=== PATIENT | male | born 1965 | race African-American/Black ===

== ENCOUNTER 2016-12-25 14:18 | Emergency (ER) | payer BC ==
[~2016-12-25] VITALS: Ht 172.7 cm; Wt 77.3 kg
[~2016-12-25 14:18] MED LIST: ASPI-664 PO; BENA10TA48 PO; LEVE-5 PO; METO25TA7 PO
[2016-12-25] MEDS ORDERED: HALOPERIDOL 5 MG INJ ONE (14:21)
[2016-12-25] MEDS ORDERED: DIPHENHYDRAMINE 50 MG INJ ONE (14:21)
[2016-12-25] MEDS ORDERED: LORAZEPAM 2 MG INJ ONE (14:22)
[2016-12-25] MEDS ORDERED: LEVETIRACETAM 500 MG (PMX) 100 ML IVPB ONE (14:30)
[2016-12-25] MEDS ORDERED: HALOPERIDOL 5 MG INJ IM ONE (14:30)
[2016-12-25] MEDS ORDERED: DIPHENHYDRAMINE 50 MG INJ IM ONE (14:30)
[2016-12-25] MEDS ORDERED: LORAZEPAM 2 MG INJ IM ONE (14:30)
[2016-12-25 14:57] VITALS: Ht 172.7 cm; Wt 77.3 kg
[2016-12-25 15:11] LABS: ADD SCAN DIFF NO
[2016-12-25 15:16] LABS: BASOPHIL # 0.1 10^3/ul (0.0-0.1); BASOPHILS % 0.7 % (0.0-2.0); EOSINOPHILS # 0.3 10^3/ul (0.0-0.5); EOSINOPHILS % 4.6 % (0.0-7.0); HEMATOCRIT 42.6 % (42.0-52.0); HEMOGLOBIN 13.5 g/dl (14.0-18.0); LYMPHOCYTES # 3.1 10^3/ul (0.8-2.9); LYMPHOCYTES % 42.8 % (15.0-51.0); MEAN CORPUSCULAR HEMOGLOBIN 25.4 pg (29.0-33.0); MEAN CORPUSCULAR HGB CONC 31.7 g/dl (32.0-37.0); MEAN CORPUSCULAR VOLUME 80.2 fl (82.0-101.0); MEAN PLATELET VOLUME 11.3 fl (7.4-10.4); MONOCYTE # 0.7 10^3/ul (0.3-0.9); MONOCYTES % 9.2 % (0.0-11.0); NEUTROPHIL # 3.1 10^3/ul (1.6-7.5); NEUTROPHILS % 42.4 % (39.0-77.0); PLATELET COUNT 279 10^3/UL (140-415); RED BLOOD COUNT 5.31 10^6/ul (4.70-6.10); WHITE BLOOD COUNT 7.2 10^3/ul (4.8-10.8)
[2016-12-25 15:29] LABS: INR 0.95; PROTIME 12.7 Sec (12.2-14.2)
[2016-12-25 15:30] LABS: PARTIAL THROMBOPLASTIN TIME 23.8 Sec (25.0-35.0)
--- NOTE | 2016-12-25 15:31 | RADRPT ---
PROCEDURE: CT Brain without contrast. CLINICAL INDICATION: Seizures TECHNIQUE: CT scan of the brain was performed on a multidetector high-resolution CT scan. Axial im aging was obtained of the brain without contrast administration. Coronal and sagittal reformatted i mages were obtained from the axial source images. Standard CT scan of the head without contrast prot ocols were performed. The total exam CTDI equals 43.05 mGy and the total exam DLP equals 720.23 mGy-cm. One or more of the following dose reduction techniques were used: - Automated exposure control. - Adjustment of the mA and/or kV according to patient size. Use of iterative reconstruction technique. COMPARISON: CT head without contrast 11/28/2014 FINDINGS: There is no significant change seen. Again noted is encephalomalacia involving the posterior pariet al lobes consistent with old infarcts. Again noted is encephalomalacia involving the posterior righ t cerebellum consistent with an old infarct. No evidence of intracranial masses hemorrhages or midl ine shift. The vazquez-white matter junction is otherwise unremarkable. The bones and calvarium are i ntact. The paranasal sinuses and mastoids are unremarkable. IMPRESSION: 1. No significant interval change. 2. No evidence of intracranial masses hemorrhages or midline shift. 3. 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 RPTAT:AAJJ Physician Sanam Date Time Electronically viewed and signed by Physician Sanam on 12/25/2016 15:31 BM/
[2016-12-25 15:34] LABS: ALBUMIN 4.1 g/dl (3.3-4.9); ALBUMIN/GLOBULIN RATIO 1.17; BILIRUBIN,INDIRECT 0.2 mg/dl (0-1.1); BILIRUBIN,TOTAL 0.2 mg/dl (0.2-1.3); CALCIUM 9.1 mg/dl (8.4-10.2); CREATININE 0.87 mg/dl (0.61-1.24); TOTAL PROTEIN 7.6 g/dl (6.1-8.1)
[2016-12-25] MEDS ORDERED: POTASSIUM CHLORIDE (SR) 20 MEQ TAB PO STA (15:57)
--- NOTE | 2016-12-25 17:12 | ERA ---
ER Documentation Chief Complaint Date/Time DATE: 12/25/16 TIME: 17:08 Chief Complaint seizure HPI The patient is a 51-year-old male, presenting to the ER because he had a seizure about a minute, happened about 30 minutes prior to arrival. He was postictal when EMS arrived, he became very combative in route to the ER. We will unable to field counsel him, he was therefore required sedation with medication. 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 Medications Home Meds Reported Medications Aspirin* (Aspirin* EC) 81 Mg Tablet.dr, 81 MG PO DAILY, TAB 11/17/14 Benazepril Hcl* (Benazepril Hcl*) 10 Mg Tablet, 10 MG PO DAILY 10/27/12 Metoprolol Succinate* (Toprol XL*) 25 Mg Tab.sr.24h, 25 MG PO DAILY 10/27/12 Levetiracetam* (Keppra*) 500 Mg Tablet, 500 MG PO TID 10/27/12 Allergies Allergies: Coded Allergies: simvastatin (Verified Allergy, Unknown, 11/17/14) PMhx/Soc History of Surgery: Yes (stent placement) Anesthesia Reaction: No Hx Neurological Disorder: Yes (seizure disorder) Hx Respiratory Disorders: No Hx Cardiac Disorders: Yes (stroke, [place]) Hx Psychiatric Problems: No Hx Miscellaneous Medical Probl: No Hx Alcohol Use: Yes (beer daily) Hx Substance Use: No Hx Tobacco Use: Yes Smoking Status: Heavy tobacco smoker Physical Exam Vitals Vital Signs Date Time Temp Pulse Resp B/P Pulse Ox O2 Delivery O2 Flow Rate FiO2 12/25/16 16:44 89 17 145/83 96 Room Air 12/25/16 14:57 98.6 99 18 148/99 96 12/25/16 14:45 98.6 100 17 128/83 96 12/25/16 14:30 98.6 100 17 135/78 96 Physical Exam Const: No acute distress.Combative Head: Atraumatic. Eyes: Normal Conjunctiva. ENT: Normal External Ears, Nose and Mouth. Neck: Full range of motion. No meningismus. Resp: Clear to auscultation bilaterally. Cardio: Regular rate and rhythm, no murmurs. Abd: Soft, non distended, normal bowel sounds, non tender. Skin: No petechiae or rashes. Back: No midline or flank tenderness. Ext: No cyanosis, or edema. Neur: Awake and alert. No focal deficit Psych: Limited,postictal, combative, moves all extremities Result Diagram: 12/25/16 1455 12/25/16 1455 Results 24 hrs Laboratory Tests Test 12/25/16 14:55 White Blood Count 7.210^3/ul Red Blood Count 5.3110^6/ul Hemoglobin 13.5g/dl Hematocrit 42.6% Mean Corpuscular Volume 80.2fl Mean Corpuscular Hemoglobin 25.4pg Mean Corpuscular Hemoglobin Concent 31.7g/dl Red Cell Distribution Width 16.0% Platelet Count 83041^3/UL Mean Platelet Volume 11.3fl Neutrophils % 42.4% Lymphocytes % 42.8% Monocytes % 9.2% Eosinophils % 4.6% Basophils % 0.7% Nucleated Red Blood Cells % 0.0/100WBC Neutrophils # 3.110^3/ul Lymphocytes # 3.110^3/ul Monocytes # 0.710^3/ul Eosinophils # 0.310^3/ul Basophils # 0.110^3/ul Nucleated Red Blood Cells # 0.010^3/ul Prothrombin Time 12.7Sec Prothrombin Time Ratio 1.0 INR International Normalized Ratio 0.95 Activated Partial Thromboplast Time 23.8Sec Sodium Level 141mmol/L Potassium Level 3.0mmol/L Chloride Level 106mmol/L Carbon Dioxide Level 26mmol/L Anion Gap 12 Blood Urea Nitrogen 7mg/dl Creatinine 0.87mg/dl Glucose Level 101mg/dl Calcium Level 9.1mg/dl Total Bilirubin 0.2mg/dl Direct Bilirubin 0.00mg/dl Indirect Bilirubin 0.2mg/dl Aspartate Amino Transf (AST/SGOT) 34IU/L Alanine Aminotransferase (ALT/SGPT) 26IU/L Alkaline Phosphatase 97IU/L Total Protein 7.6g/dl Albumin 4.1g/dl Globulin 3.50g/dl Albumin/Globulin Ratio 1.17 Current Medications Medications (Trade) Dose Ordered Sig/Aravind Route PRN Reason Start Time Stop Time Status Last Admin Dose Admin Lorazepam (Ativan) 2 mg ONCE ONCE IM 12/25/16 14:30 12/25/16 14:31 DC 12/25/16 14:28 Haloperidol (Haldol) 5 mg ONCE ONCE IM 12/25/16 14:30 12/25/16 14:31 DC 12/25/16 14:28 Diphenhydramine HCl 50 mg 50 mg ONCE ONCE IM 12/25/16 14:30 12/25/16 14:31 DC 12/25/16 14:28 Levetiracetam (Keppra 500 Mg/ 100ml (Pmx)) 100 ml @ 400 mls/hr ONCE ONCE IVPB 12/25/16 14:30 12/25/16 14:44 DC 12/25/16 14:56 Potassium Chloride (Klor-Con 20) 40 meq ONCE STAT PO 12/25/16 15:57 12/25/16 16:02 DC Diphenhydramine HCl (Benadryl) 50 mg STK-MED ONCE .ROUTE 12/25/16 14:21 12/25/16 16:15 DC Haloperidol (Haldol) 5 mg STK-MED ONCE .ROUTE 12/25/16 14:21 12/25/16 16:15 DC Lorazepam (Ativan) 2 mg STK-MED ONCE .ROUTE 12/25/16 14:22 12/25/16 16:15 DC Procedures/[place] [id number] Radiology Main Line: [phone] DIAGNOSTIC IMAGING REPORT Patient: PERI STONE : 1965 Age: 51 Sex: M MR #: [id number] DOS: 12/25/16 Formerly [facility] Ordering MD: GRICEL WALLIS MD Location: E/R Room/Bed: PROCEDURE: CT Brain without contrast. CLINICAL INDICATION: Seizures TECHNIQUE: CT scan of the brain was performed on a multidetector high- resolution CT scan. Axial imaging was obtained of the brain without contrast administration. Coronal and sagittal reformatted images were obtained from the axial source images. Standard CT scan of the head without contrast protocols were performed. The total exam CTDI equals 43.05 mGy and the total exam DLP equals 720.23 mGy- cm. One or more of the following dose reduction techniques were used: - Automated exposure control. - Adjustment of the mA and/or kV according to patient size. Use of iterative reconstruction technique. COMPARISON: CT head without contrast 11/28/2014 FINDINGS: There is no significant change seen. Again noted is encephalomalacia involving the posterior parietal lobes consistent with old infarcts. Again noted is encephalomalacia involving the posterior right cerebellum consistent with an old infarct. No evidence of intracranial masses hemorrhages or midline shift. The vazquez-white matter junction is otherwise unremarkable. The bones and calvarium are intact. The paranasal sinuses and mastoids are unremarkable. IMPRESSION: 1. No significant interval change. 2. No evidence of intracranial masses hemorrhages or midline shift. 3. 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 RPTAT:AAJJ Physician Sanam Date Time Electronically viewed and signed by Landon Dowd Physician on 12/25/2016 15:31 BM/ CC: GRICEL WALLIS MD MEDICAL MAKING DECISION: The patient is a 51-year-old male, presenting with acute recurrent seizure, acute hypokalemia. He was treated with Benadryl 50 mg IM, haloperidol 5 mg IM, Ativan 2 mg IM for acute agitation and potassium chloride 40 mEq p.o. for low potassium with good response The differential diagnoses considered include but are not limited to medication non-compliance, alcohol intoxication or withdrawal, drug intoxication or withdrawal, endocrine disorder, trauma, CVA, tumor, metabolic encephalopathy, septic encephalopathy. Departure Diagnosis: Primary Impression: Recurrent seizures Additional Impression: Hypokalemia Condition: Good Patient Instructions: Seizure, Recurrent [Adult] Additional Instructions: Call your primary care doctor TOMORROW for an appointment during the next 1-2 days.See the doctor sooner or return here if your condition worsens before your appointment time. GRICEL WALLIS MD Dec 25, 2016 17:12
[2016-12-25 20:13] VITALS: BP 185/77; PULSE 67; RESP 22
== END 2016-12-25 22:30 | disposition home or self-care (01) ==
LOC: E/R 14:18
DX: G40.909 Epilepsy, unspecified, not intractable, without status epilepticus (principal); E87.6 Hypokalemia; F17.210 Nicotine dependence, cigarettes, uncomplicated; R40.2142 Coma scale, eyes open, spontaneous, at arrival to emergency department; R40.2242 Coma scale, best verbal response, confused conversation, at arrival to emergency department; Z79.82 Long term (current) use of aspirin
CPT/HCPCS: 36415; 70450; 80053; 85025; 85610; 85730; 96372; 96374; 99285; J1200; J1630; J1953; J2060

== ENCOUNTER 2017-01-22 08:38 | Emergency (ER) | payer BC ==
[~2017-01-22] VITALS: Ht 160 cm; Wt 64.5 kg
[2017-01-22 08:39] VITALS: Ht 160 cm; Wt 64.5 kg
[2017-01-22] MEDS ORDERED: LEVETIRACETAM 1000 MG (PMX) 100 ML IVPB STA (08:48)
[2017-01-22] MEDS ORDERED: LEVE-5 PO (09:04)
[2017-01-22] MEDS ORDERED: BENA10TA48 PO (09:04)
[2017-01-22] MEDS ORDERED: METO25TA7 PO (09:04)
--- NOTE | 2017-01-22 09:16 | ERD ---
ER Documentation Chief Complaint Date/Time DATE: 01/22/17 TIME: 09:14 Chief Complaint rigo has been off seizure meds HPI 51-year-old male who presents for medication refill. He states that he has a seizure disorder and has been out of his Keppra for greater than 1 month. His last seizure was 2 weeks ago. He states that today he is seeing some flashing lights that sometimes precedes his seizures. He also notes that he has been out of his blood pressure medications and his blood pressure is elevated. He denies any headache chest pain or shortness of breath. The patient does not recall the name of the medications. He otherwise has no complaints today. ROS All systems reviewed and are negative except as per history of present illness. Medications Home Meds Active Scripts Benazepril Hcl* (Benazepril Hcl*) 10 Mg Tablet, 10 MG PO DAILY, #30 TAB Prov:DONNA GREENE MD 01/22/17 Metoprolol Succinate* (Toprol XL*) 25 Mg Tab.sr.24h, 25 MG PO DAILY, #30 TAB Prov:DONNA GREENE MD 01/22/17 Levetiracetam* (Keppra*) 500 Mg Tablet, 500 MG PO TID for 30 Days, TAB Prov:DONNA GREENE MD 01/22/17 Reported Medications Aspirin* (Aspirin* EC) 81 Mg Tablet.dr, 81 MG PO DAILY, TAB 11/17/14 Benazepril Hcl* (Benazepril Hcl*) 10 Mg Tablet, 10 MG PO DAILY 10/27/12 Metoprolol Succinate* (Toprol XL*) 25 Mg Tab.sr.24h, 25 MG PO DAILY 10/27/12 Levetiracetam* (Keppra*) 500 Mg Tablet, 500 MG PO TID 10/27/12 Allergies Allergies: Coded Allergies: simvastatin (Verified Allergy, Unknown, 11/17/14) PMhx/Soc History of Surgery: Yes (stent placement) Anesthesia Reaction: No Hx Neurological Disorder: Yes (seizure disorder) Hx Respiratory Disorders: No Hx Cardiac Disorders: Yes (stroke, [place]) Hx Psychiatric Problems: No Hx Miscellaneous Medical Probl: No Hx Alcohol Use: Yes (beer daily) Hx Substance Use: No Hx Tobacco Use: Yes Smoking Status: Unknown if ever smoked FmHx Family History: No diabetes Physical Exam Vitals Vital Signs Date Time Temp Pulse Resp B/P Pulse Ox O2 Delivery O2 Flow Rate FiO2 01/22/17 09:01 93 18 170/113 99 Room Air 01/22/17 08:39 98.0 114 18 209/126 98 Physical Exam General: Well developed, well nourished, no acute distress Head: Normocephalic, atraumatic. Eyes: Pupils equally reactive, EOM intact ENT: Moist mucous membranes Neck: Supple, no lymphadenopathy Respiratory: Lungs clear bilaterally, no distress Cardiovascular: RRR, no murmurs, rubs, or gallops Abdominal: Soft, non-tender, non-distended, no peritoneal signs : Deferred MSK: No edema, no unilateral swelling, 5/5 strength Neurologic: Alert and oriented, moving all extremities, normal speech, no focal weakness, no cerebellar signs Skin: No rash Psych: Normal mood Results 24 hrs Laboratory Tests Test 01/22/17 08:59 Bedside Glucose 72mg/dL Current Medications Medications (Trade) Dose Ordered Sig/Aravind Route PRN Reason Start Time Stop Time Status Last Admin Dose Admin Levetiracetam (Keppra 1,000mg/ 100ml (Pmx)) 100 ml @ 400 mls/hr ONCE STAT IVPB 01/22/17 08:48 01/22/17 09:02 DC 01/22/17 09:09 Procedures/MDM LAB INTERPRETATION: Accu-Chek normal MEDICAL DECISION MAKING: Patient's blood pressure was elevated (>120/80) but appears stable without evidence of hypertensive emergency or urgency. The patient was counseled about the risks of hypertension and urged to pursue outpatient monitoring and therapy within a week with their primary care physician. Medication refill of metoprolol and benazepril The patient also has not been taking Keppra for greater than 1 month. Keppra load 1 g in the emergency room. A prescription for 500 3 times daily was provided based on prior prescriptions and electronic medical record. No indication for laboratory testing or diagnostic imaging at this point. Primary care follow-up recommended. We had a conversation about medication compliance. ER COURSE: Patient given Keppra continues to be well-appearing, Accu-Chek normal. Patient discharged. I kept the patient and/or family informed of laboratory and diagnostic imaging results throughout the emergency room course. DISPOSITION PLAN: We discussed follow up with the patient's primary care doctor within 24 to 48 hours as needed. We also discussed return to the emergency room for worsening symptoms or worsening condition. Outpatient referral: [None required] Discharge Medications: Keppra 500 3 times daily Benazepril 10 mg daily Metoprolol XL 25 mg daily Departure Diagnosis: Primary Impression: Seizure disorder Additional Impression: Essential hypertension Condition: Stable Patient Instructions: Hypertension, Established, Seizure, Recurrent [Adult] Additional Instructions: Call your primary care doctor TOMORROW for an appointment during the next 1 WEEK.Tell the school secretary that you were referred from this facility.See the doctor sooner or return here if your condition worsens before your appointment time. DONNA GREENE MD January 22, 2017 09:16
[2017-01-22 09:33] VITALS: BP 154/112; PULSE 90; RESP 18
== END 2017-01-22 09:38 | disposition home or self-care (01) ==
LOC: E/R 08:38
DX: G40.909 Epilepsy, unspecified, not intractable, without status epilepticus (principal); I10 Essential (primary) hypertension; Z79.82 Long term (current) use of aspirin; Z87.891 Personal history of nicotine dependence
CPT/HCPCS: 82962; 96374; 99284; J1953

== ENCOUNTER 2017-03-18 19:28 | Emergency (ER) | payer BC, MEDICARE ==
[~2017-03-18] VITALS: Ht 167.6 cm; Wt 62.5 kg
[2017-03-18 19:30] VITALS: Ht 167.6 cm; Wt 62.5 kg
[2017-03-18] MEDS ORDERED: LEVE-5 PO (20:01)
--- NOTE | 2017-03-18 20:04 | ERD ---
ER Documentation Chief Complaint Date/Time DATE: 03/18/17 TIME: 20:02 Chief Complaint med refill - seizure meds- keppra took dose 23 days ago HPI 51-year-old male presents here in emergency department for medication refill, patient ran out of his seizure medications, patient has an appointment on March 28, unable to wait for it anymore, patient had one seizure episodes for the last 20 days. Patient denies any headache or dizziness at this time. Patient denies any aura at this time. Patient denies any other symptoms. ROS All systems reviewed and are negative except as per history of present illness. Medications Home Meds Active Scripts Levetiracetam* (Keppra*) 500 Mg Tablet, 500 MG PO TID for 15 Days, TAB Prov:NYASIA STEIN NP 03/18/17 Benazepril Hcl* (Benazepril Hcl*) 10 Mg Tablet, 10 MG PO DAILY, #30 TAB Prov:DONNA GREENE MD 01/22/17 Metoprolol Succinate* (Toprol XL*) 25 Mg Tab.sr.24h, 25 MG PO DAILY, #30 TAB Prov:DONNA GREENE MD 01/22/17 Reported Medications Aspirin* (Aspirin* EC) 81 Mg Tablet.dr, 81 MG PO DAILY, TAB 11/17/14 Benazepril Hcl* (Benazepril Hcl*) 10 Mg Tablet, 10 MG PO DAILY 10/27/12 Metoprolol Succinate* (Toprol XL*) 25 Mg Tab.sr.24h, 25 MG PO DAILY 10/27/12 Levetiracetam* (Keppra*) 500 Mg Tablet, 500 MG PO TID 10/27/12 Allergies Allergies: Coded Allergies: simvastatin (Verified Allergy, Unknown, 11/17/14) PMhx/Soc History of Surgery: Yes (stent placement) Anesthesia Reaction: No Hx Neurological Disorder: Yes (seizure disorder) Hx Respiratory Disorders: No Hx Cardiac Disorders: Yes (stroke, [place]) Hx Psychiatric Problems: No Hx Miscellaneous Medical Probl: No Hx Alcohol Use: Yes (beer daily) Hx Substance Use: No Hx Tobacco Use: Yes FmHx Family History: No coronary disease, No diabetes, No other Physical Exam Vitals Vital Signs Date Time Temp Pulse Resp B/P Pulse Ox O2 Delivery O2 Flow Rate FiO2 03/18/17 19:30 97.1 88 20 173/80 100 Physical Exam GENERAL: The patient is well developed and appropriate for usual state of health, in no apparent distress. CHEST: Clear to auscultation bilaterally. There are no rales, wheezes or rhonchi. HEART: Regular rate and rhythm. No murmurs, clicks, rubs or gallops. No S3 or S4. ABDOMEN: Soft, nontender and nondistended. Good bowel sounds. No rebound or guarding. No gross peritonitis. No gross organomegaly or masses. No Pollard sign or McBurney point tenderness. BACK: No midline or flank tenderness. EXTREMITIES: Equal pulses bilaterally. There is no peripheral clubbing, cyanosis or edema. No focal swelling or erythema. Full range of motion. Grossly neurovascularly intact. NEURO: Alert and oriented. Cranial nerves 2-12 intact. Motor strength in all 4 extremities with 5/5 strength. Sensation grossly intact. Normal speech and gait. SKIN: There is no apparent rash or petechia. The skin is warm and dry. HEMATOLOGIC AND LYMPHATIC: There is no evidence of excessive bruising or lymphedema. No gross cervical, axillary, or inguinal lymphadenopathy. Procedures/MDM Medical decision making: Patient is here for medication refill on his Keppra, patient has an appointment on March 28, was given 15 day supply, was advised to follow-up with his doctor for management of his seizures. Patient was advised to return to emergency department for new worsening symptoms. Follow-up with primary care doctor as per appointment request for earlier appointment. Departure Diagnosis: Primary Impression: Encounter for medication refill Condition: Stable Patient Instructions: Taking Medicine Safely Referrals: ROSENDA DE LUNA MD (PCP) NYASIA STEIN NP Mar 18, 2017 20:04
== END 2017-03-19 05:00 | disposition home or self-care (01) ==
LOC: FTE 19:28
DX: Z76.0 Encounter for issue of repeat prescription (principal); Z79.82 Long term (current) use of aspirin; Z87.891 Personal history of nicotine dependence
CPT/HCPCS: 99281

== ENCOUNTER 2017-11-11 22:55 | Inpatient (IN) | END 2017-11-13 12:35 | disposition left against medical advice (07) | DRG 65 ==

== ENCOUNTER 2018-11-21 02:25 | Inpatient (IN) | payer MEDICAID, MEDICARE, OTHER ==
[2018-11-21] VITALS (66 sets, daily range): BP systolic 62–131; BP diastolic 11–103; PULSE 59–136; RESP 10–36; Ht 160 cm; Wt 69.9 kg
[~2018-11-21] VITALS: Ht 160 cm; Wt 69.9 kg
[~2018-11-21 02:25] MED LIST changes: -ASPI-664 PO; +ASPI-817 PO; +BENA10TA4 PO; -BENA10TA48 PO; -LEVE-5 PO; +LEVE500T8 PO; -METO25TA7 PO
[2018-11-21] MEDS ORDERED: SOD CHLORIDE 0.9% 1,000 ML IV STA ×3 (02:33→03:13)
[2018-11-21] MEDS ORDERED: ONDANSETRON 4 MG INJ IV STA (02:33)
[2018-11-21] MEDS ORDERED: FENTAnyl 50 MCG/ML VIAL IV ONE ×3 (03:00→05:00)
[2018-11-21] MEDS ORDERED: HEPARIN 1000 UNITS/ML 10 ML INJ IV STA ×2 (03:30→03:46)
[2018-11-21] MEDS ORDERED: MIDAZOLAM 1 MG/ML 2 ML INJ ONE (03:51)
[2018-11-21] MEDS ORDERED: LIDOCAINE 1% (MDV) 20 ML INJ ONE (03:51)
[2018-11-21] MEDS ORDERED: HEPARIN 1000 UNITS/ML 10 ML INJ ONE ×2 (03:51→07:34)
[2018-11-21] MEDS ORDERED: IOHEXOL 350MG/ML 50 ML BTL ONE (03:51)
[2018-11-21] MEDS ORDERED: IODIXANOL LOCM 100 ML BTL ONE ×4 (03:51→07:34)
[2018-11-21] MEDS ORDERED: FENTAnyl 50 MCG/ML VIAL ONE (03:52)
[2018-11-21] MEDS ORDERED: NITROGLYCERIN (IC) 100 MCG/ML INJ ONE (03:52)
[2018-11-21] MEDS ORDERED: VERAPAMIL 5 MG INJ ONE ×2 (03:52→07:33)
[2018-11-21] MEDS ORDERED: CLOPIDOGREL 75 MG TAB PO ONE (04:00)
--- NOTE | 2018-11-21 04:07 | ERD ---
ER Documentation Chief Complaint Chief Complaint BIB RA39 for CP/AP w/ SOB HPI 53-year-old gentleman who presents to the emergency room with epigastric abdominal pain. The patient arrives via EMS. Initial call from the field was possible ST elevation myocardial infarction. Upon arrival the patient describes epigastric abdominal pain that started earlier in the afternoon. He is a very limited and difficult historian. He describes mild nausea. He denies any chest pain or pressure but does describe a history of coronary disease and stents. He cannot articulate if this is similar to anginal equivalent. He denies any migra tory pain, fevers or chills, cough, pleuritic pain. He denies any mid back pain. Patient's blood pressure in the field was low but upon arrival is in the 100s. ROS All systems reviewed and are negative except as per history of present illness. Medications Home Meds Reported Medications Levetiracetam* (Levetiracetam*) 500 Mg Tablet, 500 MG PO TID, TAB 11/11/17 Benazepril Hcl* (Benazepril Hcl*) 10 Mg Tablet, 10 MG PO DAILY, #30 TAB 11/11/17 Aspirin* (Aspirin* EC) 81 Mg Tablet.dr, 81 MG PO DAILY, TAB 11/11/17 Allergies Allergies: Coded Allergies: No Known Allergy (Unverified , 11/21/18) PMhx/Soc History of Surgery: Yes Anesthesia Reaction: No Hx Neurological Disorder: Yes (h/o CVA, seizures) Hx Respiratory Disorders: No Hx Cardiac Disorders: Yes ([place] x2, htn) Hx Psychiatric Problems: Yes (anxiety) Hx Miscellaneous Medical Probl: Yes (htn, h.of sizure s/p cva in 2008 ) Hx Alcohol Use: Yes Hx Substance Use: No Hx Tobacco Use: Yes (1-2 cigarettes a day) Smoking Status: Current every day smoker FmHx Family History: No diabetes Physical Exam Vitals Vital Signs Date Temp Pulse Resp B/P (MAP) Pulse Ox O2 O2 Flow FiO2 Time Delivery Rate 11/21/18 43 10 83/61 (68) 100 Nasal 3.0 03:13 Cannula 11/21/18 97.2 85 20 69/28 (42) 100 Room Air 03:00 11/21/18 97.2 119 20 70/47 (55) 100 Room Air 02:50 11/21/18 97.2 50 20 72/61 (65) 100 Room Air 02:40 11/21/18 97.2 48 20 67/56 (60) 100 Room Air 02:30 11/21/18 97.2 52 20 117/84 100 02:27 (95) Physical Exam General: Cool, diaphoretic, uncomfortable Head: Normocephalic, atraumatic. Eyes: Pupils equally reactive, EOM intact ENT: Moist mucous membranes Neck: Supple, no lymphadenopathy Respiratory: Lungs clear bilaterally, no distress Cardiovascular: Bradycardia, no murmurs rubs or gallops Abdominal: Soft, focal tenderness to the epigastrium without rebound or guarding, no tenderness to McBurney's point, negative Pollard sign, no pulsatile mass : Deferred MSK: No edema, no unilateral swelling, 5/5 strength Neurologic: Alert and oriented, moving all extremities, normal speech, no focal weakness, no cerebellar signs Skin: No rash Psych: Normal mood Result Diagram: 11/21/18 0238 11/21/18 0238 Results 24 hrs Laboratory Tests Test 11/21/18 02:38 11/21/18 03:07 White Blood Count 8.8 10^3/ul Red Blood Count 5.01 10^6/ul Hemoglobin 13.1 g/dl Hematocrit 41.4 % Mean Corpuscular Volume 82.6 fl Mean Corpuscular Hemoglobin 26.1 pg Mean Corpuscular Hemoglobin Concent 31.6 g/dl Red Cell Distribution Width 14.8 % Platelet Count 315 10^3/UL Mean Platelet Volume 10.8 fl Immature Granulocytes % 0.100 % Neutrophils % 24.8 % Lymphocytes % 64.3 % Monocytes % 7.9 % Eosinophils % 2.0 % Basophils % 0.9 % Nucleated Red Blood Cells % 0.0 /100WBC Immature Granulocytes # 0.010 10^3/ul Neutrophils # 2.2 10^3/ul Lymphocytes # 5.7 10^3/ul Monocytes # 0.7 10^3/ul Eosinophils # 0.2 10^3/ul Basophils # 0.1 10^3/ul Nucleated Red Blood Cells # 0.0 10^3/ul Prothrombin Time 12.6 Sec Prothrombin Time Ratio 1.0 INR International Normalized Ratio 0.93 Activated Partial Thromboplast Time 29.2 Sec Sodium Level 144 mmol/L Potassium Level 3.7 mmol/L Chloride Level 106 mmol/L Carbon Dioxide Level 29 mmol/L Anion Gap 9 Blood Urea Nitrogen 10 mg/dl Creatinine 1.10 mg/dl Est Glomerular Filtrat Rate mL/min > 60 mL/min Glucose Level 124 mg/dl Calcium Level 9.3 mg/dl Total Bilirubin 0.2 mg/dl Direct Bilirubin 0.00 mg/dl Indirect Bilirubin 0.2 mg/dl Aspartate Amino Transf (AST/SGOT) 35 IU/L Alanine Aminotransferase (ALT/SGPT) 17 IU/L Alkaline Phosphatase 78 IU/L Troponin I 1.300 ng/ml Total Protein 6.6 g/dl Albumin 3.7 g/dl Globulin 2.90 g/dl Albumin/Globulin Ratio 1.27 Lipase 60 U/L Lactic Acid Level 3.3 mmol/L Current Medications Medications Dose Sig/Aravind Start Time Status Last (Trade) Ordered Route PRN Stop Time Admin Dose Reason Admin Sodium 1,000 ml @ Q1H STAT 11/21/18 DC 11/21/18 Chloride 1,000 mls/hr IV 02:33 02:38 11/21/18 03:32 Fentanyl 50 mcg ONCE ONCE 11/21/18 DC 11/21/18 (Sublimaze) IV 03:00 02:38 11/21/18 03:01 Ondansetron 4 mg ONCE STAT 11/21/18 DC 11/21/18 HCl (Zofran IV 02:33 02:38 Inj) 11/21/18 02:35 Sodium 1,000 ml @ Q1H STAT 11/21/18 DC 11/21/18 Chloride 1,000 mls/hr IV 02:33 02:38 11/21/18 03:32 Sodium 1,000 ml @ Q1H STAT 11/21/18 11/21/18 Chloride 1,000 mls/hr IV 03:13 03:18 11/21/18 04:12 Fentanyl 50 mcg ONCE ONCE 11/21/18 DC 11/21/18 (Sublimaze) IV 03:30 03:17 11/21/18 03:31 Heparin 3,240 unit ONCE STAT 11/21/18 DC 11/21/18 Sodium IV 03:30 03:36 (Porcine) 11/21/18 03:32 (Heparin (1000 Units/ml)) Clopidogrel 600 mg ONCE ONCE 3/23/19 3/23/19 Bisulfate PO 04:00 03:53 (plaVIX) 11/21/18 04:01 Heparin 1,760 unit ONCE STAT 11/21/18 DC 11/21/18 Sodium IV 03:46 03:51 (Porcine) 11/21/18 03:48 (Heparin (1000 Units/ml)) Heparin 10,000 unit STK-MED 11/21/18 DC Sodium ONCE .ROUTE 03:51 (Porcine) 11/21/18 03:52 (Heparin (1000 Units/ml)) Lidocaine 20 ml STK-MED 11/21/18 DC (Xylocaine ONCE .ROUTE 03:51 1% (Mdv) 20 11/21/18 03:52 ml) Iohexol 50 ml STK-MED 11/21/18 DC (Omnipaque ONCE .ROUTE 03:51 350mg/ ml) 11/21/18 03:52 Iodixanol 100 ml STK-MED 11/21/18 DC (Visipaque ONCE .ROUTE 03:51 Locm) 11/21/18 03:52 Heparin 1,500 ml @ STK-MED 11/21/18 DC Sodium/ ud ONCE .ROUTE 03:51 Sodium 11/21/18 03:52 Chloride Midazolam 2 mg STK-MED 11/21/18 DC HCl ONCE .ROUTE 03:51 (Versed) 11/21/18 03:52 Fentanyl 100 mcg STK-MED 11/21/18 DC (Sublimaze) ONCE .ROUTE 03:52 11/21/18 03:53 Verapamil 5 mg STK-MED 11/21/18 DC HCl ONCE .ROUTE 03:52 (Verapamil) 11/21/18 03:53 1,000 mcg STK-MED 11/21/18 DC Nitroglycerin ONCE .ROUTE 03:52 11/21/18 03:53 (Nitroglyceri n (Intracoronar y)) Procedures/MDM EKG, MONITORS, & DIAGNOSTIC IMAGING: EKG at 2:26 AM EKG: I reviewed and interpreted a 12-lead EKG. Rhythm: Sinus bradycardia at 52 ST Changes: No contiguous ST segment elevations, subtle ST segment depression in lead V3 T waves: T wave inversions in the lateral leads Impression: Left bundle branch block, abnormal EKG EKG at 2:28 AM EKG: I reviewed and interpreted a 12-lead EKG. Rhythm: Sinus bradycardia at 59 ST Changes: No contiguous ST segment elevations, subtle ST segment depression in lead V3 T waves: T wave inversions in the lateral leads Impression: Left bundle branch block, abnormal EKG EKG at 2:30 AM EKG: I reviewed and interpreted a 12-lead EKG. Rhythm: Sinus bradycardia at 61 ST Changes: No contiguous ST segment elevations, subtle ST segment depression in lead V3 T waves: T wave inversions in the lateral leads Impression: Left bundle branch block, abnormal EKG, more sinus arrhythmia EKG at 2:48 8 AM EKG: I reviewed and interpreted a 12-lead EKG. Rhythm: Sinus bradycardia at 47 ST Changes: No contiguous ST segment elevations, subtle ST segment depression in lead V3 T waves: T wave inversions in the lateral leads Impression: Left bundle branch block, abnormal EKG Chest x-ray: I reviewed and interpreted a 1 view of the chest Mediastinum: No enlargement Cardiac silhouette: No cardiomegaly Airspace: Clear lung trujillo bilaterally without evidence of pneumothorax Bones: No evidence of fracture LAB INTERPRETATION: I reviewed the laboratory testing and it shows elevated troponin and lactic acid MEDICAL DECISION MAKING: Upon arrival the patient was describing only epigastric abdominal pain. He had reproducible epigastric abdominal pain. The patient had an EKG that was abnormal more consistent with left bundle branch block. The patient denied any chest pressure, no migratory pain. His blood pressure initially in the field was low but normal upon arrival but it did drop after short period of time in the emergency room setting. The patient's initial EKG did not meet ST elevation myocardial infarction criteria. However based on his presentation and abnormal EKG an emergent phone call was made to the dramatic arts historian Dr. Wiley. Initial contact was made at 2:29 AM. He and I discussed the case over the phone and both felt that this was not consistent with ST elevation myocardial infarction. It may represent cardiac ischemia the patient should be worked up accordingly. Given the patient's low blood pressure and severe epigastric abdominal pain I was concerned for possible perforation and a stat CT of the abdomen pelvis was ordered. Lower concern for aortic process given no migratory symptoms. The patient had no pulse deficits. No other risk factors for acute aortic dissection therefore CTA was not ordered. ER COURSE: * Patient received aspirin prior to arrival * He received fentanyl dosing for pain medication in the emergency room. * An emergent CT was ordered showing no evidence of acute process other than possible hemorrhagic renal cyst unlikely causing the patient's symptoms. * Laboratory testing shows no evidence of infectious process, hemorrhage. However the patient's lactic acid is elevated as well as the troponin * As time persisted the patient continued to be bradycardic in the 40s with borderline blood pressure. The patient was mentating well and had good peripheral pulses but I was concerned for possible cardiogenic shock. The patient was cooled. The patient did not have significant pulmonary edema making the picture somewhat convoluted. * Once the troponin was resulted in the patient and persistence of symptoms without any other alternative further conversation with Dr. Wiley occurred. He and I discussed the case as well as the patient's persistent symptoms, bradycardia and borderline blood pressure. Decision was made at that time to take the patient to the Satellite Communications Operator. * Satellite Communications Operator was activated at 3:30 AM. The patient was taken to the Satellite Communications Operator at 3:55 AM. * Fiber Design Engineer recommended heparin bolus 5000 units despite the patient's weight. He also recommended Plavix 600 mg. * The patient already had pacer pads placed and 2 large bore peripheral IVs. * A triple lumen catheter can be placed in the Satellite Communications Operator. Patient will need ICU level of care. He was updated. He is protecting his airway. CONSULTATION: Fiber Design Engineer Dr. Wiley DISPOSITION PLAN: Patient emergently taken to the Satellite Communications Operator for acute coronary syndrome It should be noted that the patient did not meet criteria for ST elevation myocardial infarction but given ongoing acute coronary syndrome and persistent chest pain emergent Satellite Communications Operator activation was initiated. Critical Care Note: Total time: 45 minutes Indication/Organ System Threat: Acute coronary syndrome I spent the above amount of critical care time with the patient, not including billable procedures. This included chart review, consultations, repeat bedside evaluations, and titration of appropriate medications to prevent cardiopulmonary or respiratory collapse. Accepting care team and consultations: I discussed the current laboratory data, diagnostic imaging and emergency care provided. Admitting team: Dr. Garza Admitting team indication: Insurance directed Departure Diagnosis: Primary Impression: Acute coronary syndrome Additional Impressions: Non-ST elevation myocardial infarction (NSTEMI) Bradycardia Cardiogenic shock Condition: Critical DONNA GREENE MD Nov 21, 2018 04:07
[2018-11-21] MEDS ORDERED: SOD CHLORIDE 0.9% 500 ML ONE (04:24)
[2018-11-21] MEDS ORDERED: FUROSEMIDE 40 MG INJ ONE (04:54)
[2018-11-21] MEDS: FENTAnyl 50 MCG/ML VIAL IV SCH ×12 (05:00→21:00)
[2018-11-21] MEDS ORDERED: MEPERIDINE 25 MG INJ IV PRN ×2 (05:00)
[2018-11-21] MEDS ORDERED: DOCUSATE SODIUM 100 MG CAP PO PRN (05:00)
[2018-11-21] MEDS ORDERED: BISACODYL (EC) 5 MG TAB PO PRN (05:00)
[2018-11-21] MEDS ORDERED: ACETAMINOPHEN 650MG/20.3ML CUP PO PRN ×3 (05:00→10:30)
[2018-11-21] MEDS ORDERED: ACETAMINOPHEN 650 MG SUPP PR PRN ×2 (05:00→10:30)
[2018-11-21] MEDS ORDERED: LIDOCAINE 100 MG SYRINGE ONE (05:47)
--- NOTE | 2018-11-21 05:59 | HP ---
Date/Time of Note Date/Time of Note DATE: 11/21/18 TIME: 05:54 Assessment/Plan VTE Prophylaxis Pharmacological prophylaxis: heparin Lines/Catheters IV [facility]from [facility] Saline Lock Assessment/Plan Hospital Course This is a 53-year-old male being admitted to the ICU floor for: #1 high risk non-STEMI: Patient is currently hemodynamically unstable and he does have an elevated troponin of 1.3. CT scan of the abdomen was performed which did not show any acute abnormalities. ED physician did review with the on-call poured wall foreman Dr. Wiley who recommended emergent cardiac catheterization. Patient will be taken emergently to the cardiac New Home Sales Consultant, further orders will be forthcoming as per the clinical course. Patient did receive aspirin in route to the emergency department. Echocardiogram in the a.m. heparin drip. #2 coronary artery disease: Patient does have a history of [place] x2 and 2 cardiac stents in the past. Patient did receive aspirin en route, further medications will be optimized as per the clinical course and per the recommendations of cardiology. #3 seizure disorder: Continue Keppra #4 history of CVA: No current residual deficits noted. #5 heavy alcohol use: Patient does drink a sixpack of beer daily. Will need to monitor for drug withdrawal symptoms. Consider Librium. #6 right kidney low-density lesion: CT scan of the abdomen did show In the inferior right kidney is a 2 point a centimeter inhomogeneous rounded low density lesion that may represent a hemorrhagic cyst. Neoplasm cannot be excluded and follow-up is recommended. We will need to further investigate this when clinically able or as an outpatient. #7 DVT GI prophylaxis: Heparin drip, Protonix Further treatment strategy will be implemented as per the clinical course Greater than 45 minutes of critical care time was spent on the care and ma nagement of this patient. Result Diagram: 11/21/18 0238 11/21/18 0238 Results 24hrs Laboratory Tests Test 11/21/18 02:38 11/21/18 03:07 White Blood Count 8.8 # Red Blood Count 5.01 Hemoglobin 13.1 L Hematocrit 41.4 L Mean Corpuscular Volume 82.6 Mean Corpuscular Hemoglobin 26.1 L Mean Corpuscular Hemoglobin Concent 31.6 L Red Cell Distribution Width 14.8 H Platelet Count 315 # Mean Platelet Volume 10.8 H Immature Granulocytes % 0.100 Neutrophils % 24.8 L Lymphocytes % 64.3 H Monocytes % 7.9 Eosinophils % 2.0 Basophils % 0.9 Nucleated Red Blood Cells % 0.0 Immature Granulocytes # 0.010 Neutrophils # 2.2 Lymphocytes # 5.7 H Monocytes # 0.7 Eosinophils # 0.2 Basophils # 0.1 Nucleated Red Blood Cells # 0.0 Prothrombin Time 12.6 Prothrombin Time Ratio 1.0 INR International Normalized Ratio 0.93 Activated Partial Thromboplast Time 29.2 Sodium Level 144 Potassium Level 3.7 Chloride Level 106 Carbon Dioxide Level 29 Anion Gap 9 Blood Urea Nitrogen 10 Creatinine 1.10 Est Glomerular Filtrat Rate mL/min > 60 Glucose Level 124 Calcium Level 9.3 Total Bilirubin 0.2 Direct Bilirubin 0.00 Indirect Bilirubin 0.2 Aspartate Amino Transf (AST/SGOT) 35 Alanine Aminotransferase (ALT/SGPT) 17 Alkaline Phosphatase 78 Troponin I 1.300 *H Total Protein 6.6 Albumin 3.7 Globulin 2.90 Albumin/Globulin Ratio 1.27 Lipase 60 Lactic Acid Level 3.3 *H HPI/ROS Admit Date/Time Admit Date/Time Hx of Present Illness Chief complaint: Abdominal pain Patient was seen and examined prior to going to the New Home Sales Consultant. This is a 53-year-old gentleman who presents to the emergency room with epigastric abdominal pain. The patient arrives via EMS. Initial call from the field was possible ST elevation myocardial infarction. Upon arrival the patient describes epigastric abdominal pain that started earlier in the afternoon. He describes mild nausea. He denies any chest pain or pressure but does describe a history of coronary disease and stents. Patient did appear to be in acute distress and he was noted to be with low blood pressures as well as heart rates in the 50s. He did have a CT scan of the chest that was performed that did not show any acute abnormalities. EKG was reviewed with the referral rn on-call given the patient's hemodynamic instability high risk non- STEMI as well as his symptoms and given the fact that his initial troponin was elevated at 1.3 patient was taken to the New Home Sales Consultant emergently for PCI. During this time the patient's did arrive at the emergency department who did report to me that the patient was working in the backyard earlier in the day and when he came inside he was noted to be sweating and he reported to the that he had nausea and abdominal pain. As his symptoms do not resolve she called 911. Allergies: NKDA Medications: statin ROS Const: As per HPI ENT: No pain, sore throat, congestion, congestion, dysphagia or discharge Respiratory: As per HPI Cardiovascular: No chest pain, palpitation, PND, or edema GI : As per HPI Genitourinary: No dysuria, hematuria, flank pain , discharge or CVA tenderness Musculoskeletal: No joint pain, back pain, neck pain, restricted range of motion in neck or joints Skin: No rash, bruising or hives Neuro: No headache, dizziness, syncope, seizure, focal weakness Endocrine: No polyuria, polydipsia, temperature intolerance Psych: No hallucination, depression, anxiety or suicidal ideation PMH/Family/Social Past Medical History Coronary artery disease, [place] x2, history of CVA, history of seizures Medications Current Medications Acetaminophen (Tylenol Liquid) 650 mg Q6H PRN PO PAIN LEVEL 1-3 OR FEVER; Start 11/21/18 at 05:00 Docusate Sodium (Colace) 100 mg Q12H PRN PO CONSTIPATION; Start 11/21/18 at 05:00 Bisacodyl (Dulcolax) 5 mg DAILY PRN PO CONSTIPATION; Start 11/21/18 at 05:00 Pantoprazole (Protonix Iv) 40 mg DAILY@06 IV ; Start 11/21/18 at 06:00 Fentanyl (Sublimaze) 25 mcg Q10M IV ; Start 11/21/18 at 05:00 Midazolam HCl 50 ml @ 2 mls/hr PER PROTOCOL IV ; Start 11/21/18 at 05:00 Acetaminophen (Tylenol Supp) 650 mg Q4H PRN GA TEMP > 37C; Start 11/21/18 at 05:00 Acetaminophen (Tylenol Liquid) 650 mg Q4H PRN PO TEMP > 37C; Start 11/21/18 at 05:00 Acetaminophen (Tylenol Supp) 500 mg Q6H GA ; Start 11/22/18 at 05:00 Acetaminophen (Tylenol Liquid) 500 mg Q6H PO ; Start 11/22/18 at 05:00 Meperidine HCl (Demerol) 12.5 mg Q4H PRN IV POST OPERATIVE SHIVERING; Start 11/21/18 at 05:00 Meperidine HCl (Demerol) 25 mg Q4H PRN IV POST OPERATIVE SHIVERING; Start 11/21/18 at 05:00 Eye Lubricant (Akwa Oint) 1 applic Q6 BOTH EYES ; Start 11/21/18 at 06:00 Eye Lubricant (Artificial Tears Oph) 2 drop Q6 BOTH EYES ; Start 11/21/18 at 06:00 Coded Allergies: No Known Allergy (Unverified , 11/21/18) Past Surgical History Cardiac stent x2 Past Surgical Hx: other Family History Significant Family History: no pertinent family hx Social History Alcohol Use: heavy Smoking Status: Current every day smoker Drug Use: none Exam/Review of Systems Vital Signs Vitals Vital Signs Date Temp Pulse Resp B/P (MAP) Pulse Ox O2 O2 Flow FiO2 Time Delivery Rate 11/21/18 43 10 83/61 (68) 100 Nasal 3.0 03:13 Cannula 11/21/18 97.2 03:00 Exam Exam General: Patient is currently sitting in bed he appears to be uncomfortable and in distress, even mild palpation to his abdomen resulted in pain. He was noted to be hypotensive and bradycardic in the 50s on the environmental monitoring technician. HEENT: Atraumatic, normocephalic. The pupils are equal, round and reactive. Extraocular motor are intact Neck: Supple with full range of motion. No rigidity or meningismus Lungs: Clear to auscultation bilaterally, in moderate respiratory distress Heart: Sinus bradycardia at approximately 50 bpm Abdomen: Tender diffusely more so in the epigastric region Extremities: Normal to inspection, no edema no cyanosis Neurologic: He is alert and awake however he does appear to be in distress and unable to provide a great history likely secondary to his distress. Additional Comments PROCEDURE: XR Chest. CLINICAL INDICATION: Chest pain TECHNIQUE: AP view of the chest was obtained COMPARISON: Chest 10/28/2012 FINDINGS: Hypoventilatory chest. The patient slightly rotated left and tilted to the right. Heart mildly enlarged. No evidence of pulmonary vascular congestion acute lung consolidation pleural effusions and pneumothorax. IMPRESSION: Mild cardiomegaly without congestive heart or pneumonia. RPTAT:AAJJ Physician Sanam Date Time Electronically viewed and signed by Physician Sanam on 11/21/2018 03:31 BM/ CC: DONNA GREENE MD [id number] PROCEDURE: CT Abdomen and pelvis without contrast. CLINICAL INDICATION: Abdominal pain TECHNIQUE: CT scan of the abdomen and pelvis without contrast was performed on a multidetector high-resolution CT scan. . Coronal and sagittal reformatted images were obtained from the axial source images. Standard CT scan of the abdomen pelvis without contrast protocols were performed. The total exam CTDI equals 6.78 mGy and the total exam DLP equals 382.76 mGy-cm. One or more of the following dose reduction techniques were used: - Automated exposure control. - Adjustment of the mA and/or kV according to patient size. Use of iterative reconstruction technique. Dicom images are available COMPARISON: None. FINDINGS: The kidneys are normal in size without calcified calculi or hydronephrosis bilaterally. There is a 2.8 cm inhomogeneous low density rounded mass involving the inferior right kidney with Hounsfield units not consistent with a simple cyst. Finding may represent a hemorrhagic cyst. Neoplasm cannot be excluded. Follow-up CT or MRI of the kidneys for renal mass protocols is suggested. No evidence ureteral calcified calculi or dilatation. Distended urinary bladder otherwise unremarkable. Prostate unremarkable. Stomach, small bowel, large bowel and appendix are unremarkable. No evidence of intra-abdominal free air, free fluid, abscesses or lymphadenopathy. Liver spleen pancreas adrenal glands and gallbladder are unremarkable. No evidence biliary ductal dilation. Bilateral lower lung cylindrical bronchiectasis. Bilateral mild chronic basilar interstitial lung disease worse at the right base. Coronary artery disease. Atherosclerotic vascular disease aorta and iliac arteries without aneurysm. Abdominal pelvic wall unremarkable. Degenerative changes of the lower thoracic and lumbar spine without acute osseous findings or osteoblastic/osteolytic lesions. IMPRESSION: 1. In the inferior right kidney is a 2 point a centimeter inhomogeneous rounded low density lesion that may represent a hemorrhagic cyst. Neoplasm cannot be excluded and follow-up is recommended. 2. No calcified urinary calculi obstructive uropathy bilaterally. 3. No evidence of gastrointestinal disease. RPTAT:AAJJ B Nile, Physician Date Time Electronically viewed and signed by Landon Dowd, Physician on 11/21/2018 03:15 BM/ CC: DONNA GREENE MD [id number] LILIAN SANDERSON Nov 21, 2018 05:59
[2018-11-21] MEDS: PANTOPRAZOLE 40 MG INJ IV SCH (06:00)
[2018-11-21] MEDS: ARTIFICIAL TEARS 15 ML OPH BOTH EYES SCH ×3 (06:00→18:13)
[2018-11-21] MEDS: OCULAR LUBRICANT 3.5 GM OPH OINT BOTH EYES SCH ×3 (06:00→18:13)
[2018-11-21] MEDS ORDERED: HEPARIN 25000 UNITS/250 ML 250 ML ONE ×2 (06:03→07:31)
--- NOTE | 2018-11-21 06:17 | CONS ---
Assessment/Plan Cardiology NYHA: IV Heart Failure Type: Acute Heart Failure Type: Systolic Assessment/Plan Problems: (1) Non-ST elevation myocardial infarction (NSTEMI) Status: Acute (2) Cardiogenic shock Status: Acute Assessment/Plan (Daily) [facility] very complex anatomey with 100% occluded LCx in mid segment as well as 99% occluded. very difficult anatomy and calcification for intervention. needed guidezilla support with corsair to get through LCx with multiple attempt and POBA finaly we got 2 stents in mid LCx with RUBY 3 flow, and Prox LAD stent. followed by that patient loss all the flow and severe myocardial Edema caused RUBY 0 flow, Vfib arrest x 3 s /p shock and came back. Temp wire placed. IABP placed Another prox LCx stent was placed to keep flow with support of guidezilla. Now he is stable with critical condition. prognosis is very guarded. d/w in detail CTS called in for consideration of bypass if flow shuts down again. Lidocain drip integralin drip heparin drip Brliitan via NG ASA ICU d/w PMD Consultation Date/Type/Reason Admit Date/Time Date of Consultation: Nov 21, 2018 Type of Consult Cardiology Reason for Consultation NSTEMI, High risk ACS Date/Time of Note DATE: 11/21/18 TIME: 06:06 Hx of Present Illness Patient is 53 year old male with pMH of CAD s/p PCI presented in ER with abdominal pain, ER called with EKG had ST changes only in lead 3 and LBBB, with high risk NSTEMI and Trop of 1.23 with BP of 90s. [place] to high risk NSTEMI decided to take patient to lab rn emergently. Patient was alert and awake on cath table. still having Epigastric pain and abdominal pain . Past Medical History Medical History: angina Home Meds Reported Medications Levetiracetam* (Levetiracetam*) 500 Mg Tablet, 500 MG PO TID, TAB 11/11/17 Benazepril Hcl* (Benazepril Hcl*) 10 Mg Tablet, 10 MG PO DAILY, #30 TAB 11/11/17 Aspirin* (Aspirin* EC) 81 Mg Tablet.dr, 81 MG PO DAILY, TAB 11/11/17 Medications Current Medications Acetaminophen (Tylenol Liquid) 650 mg Q6H PRN PO PAIN LEVEL 1-3 OR FEVER; Start 11/21/18 at 05:00 Docusate Sodium (Colace) 100 mg Q12H PRN PO CONSTIPATION; Start 11/21/18 at 05:00 Bisacodyl (Dulcolax) 5 mg DAILY PRN PO CONSTIPATION; Start 11/21/18 at 05:00 Pantoprazole (Protonix Iv) 40 mg DAILY@06 IV ; Start 11/21/18 at 06:00 Fentanyl (Sublimaze) 25 mcg Q10M IV ; Start 11/21/18 at 05:00 Midazolam HCl 50 ml @ 2 mls/hr PER PROTOCOL IV ; Start 11/21/18 at 05:00 Acetaminophen (Tylenol Supp) 650 mg Q4H PRN [place] TEMP > 37C; Start 11/21/18 at 05:00 Acetaminophen (Tylenol Liquid) 650 mg Q4H PRN PO TEMP > 37C; Start 11/21/18 at 05:00 Acetaminophen (Tylenol Supp) 500 mg Q6H SD ; Start 11/22/18 at 05:00 Acetaminophen (Tylenol Liquid) 500 mg Q6H PO ; Start 11/22/18 at 05:00 Meperidine HCl (Demerol) 12.5 mg Q4H PRN IV POST OPERATIVE SHIVERING; Start 11/21/18 at 05:00 Meperidine HCl (Demerol) 25 mg Q4H PRN IV POST OPERATIVE SHIVERING; Start 11/21/18 at 05:00 Eye Lubricant (Akwa Oint) 1 applic Q6 BOTH EYES ; Start 11/21/18 at 06:00 Eye Lubricant (Artificial Tears Oph) 2 drop Q6 BOTH EYES ; Start 11/21/18 at 06:00 Allergies: Coded Allergies: No Known Allergy (Unverified , 11/21/18) Past Surgical History Past Surgical Hx: angioplasty, other Social History Smoking Status: Current every day smoker Exam/Review of Systems Vital Signs Vitals Vital Signs Date Temp Pulse Resp B/P (MAP) Pulse Ox O2 O2 Flow FiO2 Time Delivery Rate 11/21/18 54 16 50 04:40 11/21/18 83/61 (68) 100 Nasal 3.0 03:13 Cannula 11/21/18 97.2 03:00 Exam Constitutional: alert, oriented Eyes: nl conjunctiva Neck: supple Respiratory: clear to auscultation Cardiovascular: regular rate and rhythm Gastrointestinal: soft Labs Result Diagram: 11/21/18 0238 11/21/18 0238 Results 24hrs Laboratory Tests Test 11/21/18 02:38 11/21/18 03:07 White Blood Count 8.8 # Red Blood Count 5.01 Hemoglobin 13.1 L Hematocrit 41.4 L Mean Corpuscular Volume 82.6 Mean Corpuscular Hemoglobin 26.1 L Mean Corpuscular Hemoglobin Concent 31.6 L Red Cell Distribution Width 14.8 H Platelet Count 315 # Mean Platelet Volume 10.8 H Immature Granulocytes % 0.100 Neutrophils % 24.8 L Lymphocytes % 64.3 H Monocytes % 7.9 Eosinophils % 2.0 Basophils % 0.9 Nucleated Red Blood Cells % 0.0 Immature Granulocytes # 0.010 Neutrophils # 2.2 Lymphocytes # 5.7 H Monocytes # 0.7 Eosinophils # 0.2 Basophils # 0.1 Nucleated Red Blood Cells # 0.0 Prothrombin Time 12.6 Prothrombin Time Ratio 1.0 INR International Normalized Ratio 0.93 Activated Partial Thromboplast Time 29.2 Sodium Level 144 Potassium Level 3.7 Chloride Level 106 Carbon Dioxide Level 29 Anion Gap 9 Blood Urea Nitrogen 10 Creatinine 1.10 Est Glomerular Filtrat Rate mL/min > 60 Glucose Level 124 Calcium Level 9.3 Total Bilirubin 0.2 Direct Bilirubin 0.00 Indirect Bilirubin 0.2 Aspartate Amino Transf (AST/SGOT) 35 Alanine Aminotransferase (ALT/SGPT) 17 Alkaline Phosphatase 78 Troponin I 1.300 *H Total Protein 6.6 Albumin 3.7 Globulin 2.90 Albumin/Globulin Ratio 1.27 Lipase 60 Lactic Acid Level 3.3 *H Medications Medications Current Medications Acetaminophen (Tylenol Liquid) 650 mg Q6H PRN PO PAIN LEVEL 1-3 OR FEVER; Start 11/21/18 at 05:00 Docusate Sodium (Colace) 100 mg Q12H PRN PO CONSTIPATION; Start 11/21/18 at 05:00 Bisacodyl (Dulcolax) 5 mg DAILY PRN PO CONSTIPATION; Start 11/21/18 at 05:00 Pantoprazole (Protonix Iv) 40 mg DAILY@06 IV ; Start 11/21/18 at 06:00 Fentanyl (Sublimaze) 25 mcg Q10M IV ; Start 11/21/18 at 05:00 Midazolam HCl 50 ml @ 2 mls/hr PER PROTOCOL IV ; Start 11/21/18 at 05:00 Acetaminophen (Tylenol Supp) 650 mg Q4H PRN [place] TEMP > 37C; Start 11/21/18 at 05:00 Acetaminophen (Tylenol Liquid) 650 mg Q4H PRN PO TEMP > 37C; Start 11/21/18 at 05:00 Acetaminophen (Tylenol Supp) 500 mg Q6H SD ; Start 11/22/18 at 05:00 Acetaminophen (Tylenol Liquid) 500 mg Q6H PO ; Start 11/22/18 at 05:00 Meperidine HCl (Demerol) 12.5 mg Q4H PRN IV POST OPERATIVE SHIVERING; Start 11/21/18 at 05:00 Meperidine HCl (Demerol) 25 mg Q4H PRN IV POST OPERATIVE SHIVERING; Start 11/21/18 at 05:00 Eye Lubricant (Akwa Oint) 1 applic Q6 BOTH EYES ; Start 11/21/18 at 06:00 Eye Lubricant (Artificial Tears Oph) 2 drop Q6 BOTH EYES ; Start 11/21/18 at 06:00 KELVIN GROSS MD Nov 21, 2018 06:17
[2018-11-21] MEDS ORDERED: HEPARIN 1000 UNITS/ML 10 ML INJ IV ONE (06:30)
[2018-11-21] MEDS: EPTIFIBATIDE 100 ML IV SCH ×2 (06:30→21:14)
[2018-11-21] MEDS ORDERED: HEPARIN 25000 UNITS/250 ML 250 ML IV SCH (06:30)
[2018-11-21] MEDS ORDERED: LIDOCAINE 2 GM/D5W 500 ML IV SCH (06:30)
--- NOTE | 2018-11-21 07:15 | SP ---
DATE OF PROCEDURE: 11/21/2018 INDICATIONS FOR THE PROCEDURE: 1. Non-ST elevation myocardial infarction. 2. High risk acute coronary syndrome. 3. Cardiogenic shock. GRINDING SUPERVISOR: Andrew Wiley MD PROCEDURES PERFORMED: 1. Selective right and left coronary angiography. 2. Left heart catheterization. 3. Acute myocardial infarction intervention of left circumflex and proximal left anterior descending. 4. Intraaortic balloon pump placement. 5. Temporary pacemaker wire placement. 6. Central line triple lumen catheter placement. PROCEDURE DETAILS: The patient is a 53-year-old male with past medical history of hypertension, dyslipidemia, history of coronary artery disease and a stent in the past who presents to the ER with abdominal pain and epigastric pain ongoing since afternoon. The patient walks into ER complaining of severe abdominal pain as well as epigastric pain. Patient is alert and awake and comfortable. Initial blood pressure is in the 90s to 100s with the EKG showed left bundle branch block and no significant ST-T changes, ST elevation myocardial infarction with ST elevation criteria, but lead III had some ST-T changes, otherwise patient had some PVCs on EKG. The ER troponin came back 1.23 with ongoing chest pain or epigastric pain with some EKG changes. The ER called in for high risk NSTEMI and the patient was taken to emergent catheterization lab because of hypotension and possible cardiogenic shock as well. On the arrival to the cardiac cath tech patient still having ongoing pain with a blood pressure that was labile, right radial artery was accessed after the patient was prepped and draped in supine position. An initial angiogram showed a 100% occluded left circumflex artery on EBU guide. The patient's coronary anatomy was severely calcified with a stent in the LAD. The circumflex is a dominant system with a major 2 branch after the mid LAD which was OM2 and OM3 and there was another OM1 coming before that. Initially, attempt with the wire with a run-through but due to severely calcification and tortuosity run-through did not go through far enough from the occlusion, so we had to take support. Followed by that, we attempted the run-through to cross and it was not crossing due to significant calcification, so we had to take a Corsair support and with the support of the Corsair, run- through was able to cross and with a Corsair putting it down. We confirmed the position into the vessel by injecting the dye. Followed by that, we put a 300 wire choice PT over the wire. We next did a garden consultant balloon which was 1.25 and successful coronary angioplasty was performed in the mid circ but due to severe calcification. We had to advance the GuideLiner with the anchor balloon technique. Followed by that, we are able to deliver the first stent in the proximal segment and was supposed go to the distal area, but because of severe calcification it was unable to go to the distal area, so we opened up the proximal segment of the mid circumflex occlusion. Followed by that, we did anchor balloon technique again to get the guide to drill distal further down. Followed by that, we put a second stent into the mid circ with RUBY 3 flow into both vessels but during that time, we see, there is another the patient went into v-fib arrest and we shocked the patient brought him back, intubated the patient and put an intraaortic balloon pump from the right femoral artery. At this time, there is another plaque rupture appears to be in the proximal LAD. Successful stenting was done in the proximal LAD. Followed by that, we see, there is haziness in the proximal circumflex probably is a clot versus another plaque rupture. We have attempted to put a stent in the proximal circ, but is unable to deliver and guide was not advancing. At this time, the patient went into another ventricular fibrillation arrest which shocked back and had a second event of the I shocked back in. The patient is on 3 pressures at this time with intraaortic balloon pump and the patient's vessel flow is going down. Patient shut down the vessel flow in the LAD as well as in the circumflex. At this time, we consulted CT surgery for possible emergent bypass. We actually wired the LAD as well as a circumflex artery and balloon angioplasty of the LAD and a circ. Patient received Integrilin, IV heparin and also received during the case, heparin ACT was more than 300 all the time. The patient was also started on lidocaine drip. At this time, patient is critically ill with keep shutting down his vessels and we attempted to reopen the vessel after the Integrilin and balloon angioplasty, the RUBY flow came back in the LAD as well as in the circ. Followed by that, we did anchor balloon technique to get the GuideLiner into the proximal circumflex and successful stenting of the proximal circular was also performed. At this time, patient had RUBY 3 flow into both vessels. The patient was in cardiogenic shock with elevated LVEDP, intraaortic balloon pump under 3 pressures. The patient also had a temporary wire placed in the RV. At this time, procedure was finished. All the lines have been sutured. The patient is on 3 pressure with the blood pressure last was 84/54 with a mean of 64. Patient has a stable cardiac rhythm at this time. RECOMMENDATIONS: I had a long discussion with the patient's , the patient's condition is very critical, with the progress is very guarded and the next 8-12 hours will determine the direction the patient is going to go. Dr. Avelar was consulted for possible emergent CT surgery or possible Impella placement, then we may have to transfer the patient to tertiary care. At this time, patient is not clinically stable to transfer anywhere. CORONARY FINDINGS: 1. Left main: Mild diffuse disease. 2. LAD proximal segment acute plaque rupture with a 99% stenosis with a patent stent in the mid LAD with a severely calcified tortuous LAD. 3. Left circumflex artery is a dominant circumflex. Severely tortuous and calcified artery with 100% occluded mid circumflex. 4. Right coronary artery: Nondominant small RCA with proximal segment has about 70% stenosis. CONCLUSION: 1. Cardiogenic shock with intraaortic balloon pump placement. 2. Acute myocardial infarction, PCI of the cervix x3 with a drug-eluting stent in LAD x1 with a drug-eluting stent as described above. 3. Temporary pacemaker placement. 4. Central line placement for pressures. RECOMMENDATIONS: Brilinta and aspirin via NG tube. Patient is critically ill. Continue heparin drip as well as lidocaine drip as well as pressure support. Prognosis is guarded. Patient is transfer to ICU for close monitoring. CT surgery consultation was performed. Dictated By: ANDREW LÓPEZ/JULIET Conf#: [id number] DID#: [id number] RYAN
[2018-11-21] MEDS ORDERED: EPTIFIBATIDE 20 ML ONE (07:33)
[2018-11-21] MEDS ORDERED: DOPamine-D5W 1.6 MG/ML 250 ML ONE (07:33)
[2018-11-21] MEDS ORDERED: PHENYLephrine 20MG IN 250 ML 250 ML ONE ×3 (07:33)
[2018-11-21] MEDS ORDERED: EPTIFIBATIDE 100 ML IV ONE (07:33)
[2018-11-21] MEDS ORDERED: PROPOFOL 100 ML ONE ×2 (07:33→08:15)
[2018-11-21] MEDS ORDERED: LORAZEPAM 2 MG INJ IV PRN (08:00)
[2018-11-21] MEDS: PROPOFOL 100 ML IV SCH ×2 (08:30→20:30)
[2018-11-21] MEDS ORDERED: PROPOFOL 100 ML IV SCH (08:30)
--- NOTE | 2018-11-21 08:44 | PN ---
Date/Time of Note Date/Time of Note DATE: 11/21/18 TIME: 08:44 Assessment/Plan VTE Prophylaxis SCD applied (from Nsg): Yes Pharmacological prophylaxis: heparin Lines/Catheters IV Catheter Type (from Nrsg): Saline Lock Assessment/Plan Assessment/Plan 1. Acute coronary syndrome s/p PEA and Vfib arrest - Take for emergent cath this am with placement of 4 stents but experienced Vfib arrest during PCI. In ICU patient went into PEA and Vfib arrest with ROSC. Hypothermia protocol was to be initiated but patient awoke and was agitated - Cardiology on board and appreciate recommendations. Patient is very critical at this time and too unstable [facility]. At this time will continue balloon pump and pressor support - CT surgery consultation appreciated and will hold off on any intervention at this time given critical status and return of flow during PCI - Palliative consultation placed to address goals of care with family 2. Cardiogenic shock - continue pressor support to maintain MAP >65 3. Acute hypoxic respiratory failure secondary to #1 - Pulm on board for vent management - sedation on board 4. Lactic acidosis - in setting of shock - IVF on board 5. Vfib arrest - Amiodarone on board 6. ISHAAN - in setting of shock - Nephrology consultation appreciated 7. Disposition - Continue monitoring in ICU while requiring pressor support, vent support, and balloon pump. - prognosis remains critical >60 minutes of critical care time spent with patient at bedside Result Diagram: 11/21/18 0238 11/21/18 0238 Results 24hrs Laboratory Tests Test 11/21/18 02:38 11/21/18 03:07 White Blood Count 8.8 # Red Blood Count 5.01 Hemoglobin 13.1 L Hematocrit 41.4 L Mean Corpuscular Volume 82.6 Mean Corpuscular Hemoglobin 26.1 L Mean Corpuscular Hemoglobin Concent 31.6 L Red Cell Distribution Width 14.8 H Platelet Count 315 # Mean Platelet Volume 10.8 H Immature Granulocytes % 0.100 Neutrophils % 24.8 L Lymphocytes % 64.3 H Monocytes % 7.9 Eosinophils % 2.0 Basophils % 0.9 Nucleated Red Blood Cells % 0.0 Immature Granulocytes # 0.010 Neutrophils # 2.2 Lymphocytes # 5.7 H Monocytes # 0.7 Eosinophils # 0.2 Basophils # 0.1 Nucleated Red Blood Cells # 0.0 Prothrombin Time 12.6 Prothrombin Time Ratio 1.0 INR International Normalized Ratio 0.93 Activated Partial Thromboplast Time 29.2 Sodium Level 144 Potassium Level 3.7 Chloride Level 106 Carbon Dioxide Level 29 Anion Gap 9 Blood Urea Nitrogen 10 Creatinine 1.10 Est Glomerular Filtrat Rate mL/min > 60 Glucose Level 124 Calcium Level 9.3 Total Bilirubin 0.2 Direct Bilirubin 0.00 Indirect Bilirubin 0.2 Aspartate Amino Transf (AST/SGOT) 35 Alanine Aminotransferase (ALT/SGPT) 17 Alkaline Phosphatase 78 Troponin I 1.300 *H Total Protein 6.6 Albumin 3.7 Globulin 2.90 Albumin/Globulin Ratio 1.27 Lipase 60 Lactic Acid Level 3.3 *H Subjective 24 Hr Interval Summary Free Text/Dictation Patient had an eventful morning. Was thrashing around this morning when first examined and had to be sedated. Later patient went into PEA arrest and then found in Vfib. ACLS was performed and ROSC was achieved. He was to be started on hypothermia protocol but awoke prior to initiation so was cancelled. Patient remains in critical condition on pressor support and balloon pump. Exam/Review of Systems Exam Vitals Vital Signs Date Temp Pulse Resp B/P (MAP) Pulse Ox O2 O2 Flow FiO2 Time Delivery Rate 11/21/18 89 08:19 11/21/18 16 50 04:40 11/21/18 83/61 (68) 100 Nasal 3.0 03:13 Cannula 11/21/18 97.2 03:00 Exam General: Patient is intubated and sedated. Not following commands HEENT: Atraumatic, normocephalic. The pupils are equal, round and reactive. Neck: Supple with full range of motion. No rigidity or meningismus Lungs: clear bilaterally, no wheezing or rhonchi Heart: S1, S2, irregular rhythm, bradycardia, no murmurs Abdomen: soft, nondistended, no rebound or guarding. Extremities: Normal to inspection, no edema no cyanosis Neuro: nonresponsive Results Results 24hrs Laboratory Tests Test 11/21/18 02:38 11/21/18 03:07 White Blood Count 8.8 # Red Blood Count 5.01 Hemoglobin 13.1 L Hematocrit 41.4 L Mean Corpuscular Volume 82.6 Mean Corpuscular Hemoglobin 26.1 L Mean Corpuscular Hemoglobin Concent 31.6 L Red Cell Distribution Width 14.8 H Platelet Count 315 # Mean Platelet Volume 10.8 H Immature Granulocytes % 0.100 Neutrophils % 24.8 L Lymphocytes % 64.3 H Monocytes % 7.9 Eosinophils % 2.0 Basophils % 0.9 Nucleated Red Blood Cells % 0.0 Immature Granulocytes # 0.010 Neutrophils # 2.2 Lymphocytes # 5.7 H Monocytes # 0.7 Eosinophils # 0.2 Basophils # 0.1 Nucleated Red Blood Cells # 0.0 Prothrombin Time 12.6 Prothrombin Time Ratio 1.0 INR International Normalized Ratio 0.93 Activated Partial Thromboplast Time 29.2 Sodium Level 144 Potassium Level 3.7 Chloride Level 106 Carbon Dioxide Level 29 Anion Gap 9 Blood Urea Nitrogen 10 Creatinine 1.10 Est Glomerular Filtrat Rate mL/min > 60 Glucose Level 124 Calcium Level 9.3 Total Bilirubin 0.2 Direct Bilirubin 0.00 Indirect Bilirubin 0.2 Aspartate Amino Transf (AST/SGOT) 35 Alanine Aminotransferase (ALT/SGPT) 17 Alkaline Phosphatase 78 Troponin I 1.300 *H Total Protein 6.6 Albumin 3.7 Globulin 2.90 Albumin/Globulin Ratio 1.27 Lipase 60 Lactic Acid Level 3.3 *H Medications Medication Current Medications Acetaminophen (Tylenol Liquid) 650 mg Q6H PRN PO PAIN LEVEL 1-3 OR FEVER; Start 11/21/18 at 05:00 Docusate Sodium (Colace) 100 mg Q12H PRN PO CONSTIPATION; Start 11/21/18 at 05:00 Bisacodyl (Dulcolax) 5 mg DAILY PRN PO CONSTIPATION; Start 11/21/18 at 05:00 Pantoprazole (Protonix Iv) 40 mg DAILY@06 IV ; Start 11/21/18 at 06:00 Fentanyl (Sublimaze) 25 mcg Q10M IV ; Start 11/21/18 at 05:00 Midazolam HCl 50 ml @ 2 mls/hr PER PROTOCOL IV ; Start 11/21/18 at 05:00 Acetaminophen (Tylenol Supp) 650 mg Q4H PRN [place] TEMP > 37C; Start 11/21/18 at 05:00 Acetaminophen (Tylenol Liquid) 650 mg Q4H PRN PO TEMP > 37C; Start 11/21/18 at 05:00 Acetaminophen (Tylenol Supp) 500 mg Q6H [place] ; Start 11/22/18 at 05:00 Acetaminophen (Tylenol Liquid) 500 mg Q6H PO ; Start 11/22/18 at 05:00 Meperidine HCl (Demerol) 12.5 mg Q4H PRN IV POST OPERATIVE SHIVERING; Start 11/21/18 at 05:00 Meperidine HCl (Demerol) 25 mg Q4H PRN IV POST OPERATIVE SHIVERING; Start 11/21/18 at 05:00 Eye Lubricant (Akwa Oint) 1 applic Q6 BOTH EYES ; Start 11/21/18 at 06:00 Eye Lubricant (Artificial Tears Oph) 2 drop Q6 BOTH EYES ; Start 11/21/18 at 06:00 Eptifibatide 100 ml @ 3.273 mls/ hr Q24H IV ; Start 11/21/18 at 06:30; Stop 11/22/18 at 06:29 Lidocaine HCl/ Dextrose 500 ml @ 15 mls/hr Q24H IV ; Start 11/21/18 at 06:30; Stop 11/22/18 at 06:29 Heparin Sodium (Porcine) (Heparin (1000 Units/ml)) 3,300 unit PER PROTOCOL PRN IV aPTT<47; Start 11/21/18 at 06:30 Heparin Sodium (Porcine) 250 ml @ 6.5 mls/hr PER PROTOCOL IV ; Start 11/21/18 at 06:30 Levetiracetam (Keppra) 500 mg TID PO ; Start 11/21/18 at 09:00 Lorazepam (Ativan) 1 mg Q4 PRN IV CONTROL WITHDRAWAL SYMPTOMS; Start 11/21/18 at 08:00 Propofol 100 ml @ 1.637 mls/ hr Q12H IV ; Start 11/21/18 at 08:30 Fentanyl 100 ml @ 2.5 mls/hr TITRATE IV ; Start 11/21/18 at 09:00 EARL HOPKINS MD Nov 21, 2018 08:44
[2018-11-21] MEDS: LEVETIRACETAM 500 MG TAB PO SCH ×2 (09:00→13:00)
[2018-11-21] MEDS ORDERED: PHENYLephrine 20MG IN 250 ML 250 ML IV STA (09:18)
[2018-11-21] MEDS: DOPamine-D5W 1.6 MG/ML 250 ML IV SCH ×3 (09:29→22:21)
[2018-11-21] MEDS: FENTAnyl (DRIP) 1000 mcg/100mL 100 ML IV SCH ×2 (09:41→21:11)
--- NOTE | 2018-11-21 10:53 | CONS ---
Assessment/Plan Assessment/Plan Assessment/Plan (Daily) IMP: 1. Acute Coronary Syndrome--complicated by V.fib arrest and cardiogenic shock. 2. Shock--likely cardiogenic in origin 3. V.fib Arrest 4. Vent Dependence--2/2 #1 5. ISHAAN 6. Lactic Acidosis 7. H/O CVA 8. H/O Seizure D/O RECS: 1. Vent support--optimize settings to compensate for metabolic acidosis 2. Sedation with versed and fentanyl 3. Vasopressor and inotropic support to MAP > 65 mm Hg 4. Induced hypothermia per protocol 5. Amiodarone gtt 6. Follow lactic acid; liver tests and renal function 7. ECHO 8. ABG and CXR 9. Remainder of management as per Cardiology and CTS Consultation Date/Type/Reason Admit Date/Time Date of Consultation: Nov 21, 2018 Type of Consult Pulm/CCM Date/Time of Note DATE: 11/21/18 TIME: 10:40 Hx of Present Illness Nriefl, this is a 53-year-old gentleman with a history of HTN, CAD s/p PCI, CVA who presented to the emergency room with epigastric abdominal pain. Upon arrival, he was noted to be in acute distress with low blood pressures as well as heart rates in the 50s. He did have a CT scan of the chest that was performed that did not show any acute abnormalities. EKG was reviewed with the airport electrician on-call given the patient's hemodynamic instability high risk non-STEMI as well as his symptoms and given the fact that his initial troponin was elevated at 1.3 patient was taken to the [facility] emergently for PCI. He underwent PCI to LAD and Circ and IABP placement; course complicated by V.fib arrest in the wastewater analyst lab analyst, followed by PEA and Vfib arrest upon arrival in the ICU. He is now on [facility] ventilation, sedated and on multiple pressors. Subjective hx not possible: pt non-verbal Past Medical History Medical History: angina, coronary artery disease, hypertension Home Meds Reported Medications Levetiracetam* (Levetiracetam*) 500 Mg Tablet, 500 MG PO TID, TAB 11/11/17 Benazepril Hcl* (Benazepril Hcl*) 10 Mg Tablet, 10 MG PO DAILY, #30 TAB 11/11/17 Aspirin* (Aspirin* EC) 81 Mg Tablet.dr, 81 MG PO DAILY, TAB 11/11/17 Medications Current Medications Docusate Sodium (Colace) 100 mg Q12H PRN PO CONSTIPATION; Start 11/21/18 at 05:00 Bisacodyl (Dulcolax) 5 mg DAILY PRN PO CONSTIPATION; Start 11/21/18 at 05:00 Pantoprazole (Protonix Iv) 40 mg DAILY@06 IV ; Start 11/21/18 at 06:00 Fentanyl (Sublimaze) 25 mcg Q10M IV ; Start 11/21/18 at 05:00 Midazolam HCl 50 ml @ 2 mls/hr PER PROTOCOL IV ; Start 11/21/18 at 05:00 Acetaminophen (Tylenol Supp) 500 mg Q6H [place] ; Start 11/22/18 at 05:00 Acetaminophen (Tylenol Liquid) 500 mg Q6H PO ; Start 11/22/18 at 05:00 Meperidine HCl (Demerol) 12.5 mg Q4H PRN IV POST OPERATIVE SHIVERING; Start 11/21/18 at 05:00 Meperidine HCl (Demerol) 25 mg Q4H PRN IV POST OPERATIVE SHIVERING; Start 11/21/18 at 05:00 Eye Lubricant (Akwa Oint) 1 applic Q6 BOTH EYES ; Start 11/21/18 at 06:00 Eye Lubricant (Artificial Tears Oph) 2 drop Q6 BOTH EYES ; Start 11/21/18 at 06:00 Eptifibatide 100 ml @ 3.273 mls/ hr Q24H IV ; Start 11/21/18 at 06:30; Stop 11/22/18 at 06:29 Lidocaine HCl/ Dextrose 500 ml @ 15 mls/hr Q24H IV ; Start 11/21/18 at 06:30; Stop 11/22/18 at 06:29 Heparin Sodium (Porcine) (Heparin (1000 Units/ml)) 3,300 unit PER PROTOCOL PRN IV aPTT<47; Start 11/21/18 at 06:30 Heparin Sodium (Porcine) 250 ml @ 6.5 mls/hr PER PROTOCOL IV ; Start 11/21/18 at 06:30 Levetiracetam (Keppra) 500 mg TID PO ; Start 11/21/18 at 09:00 Lorazepam (Ativan) 1 mg Q4 PRN IV CONTROL WITHDRAWAL SYMPTOMS; Start 11/21/18 a t 08:00 Propofol 100 ml @ 1.637 mls/ hr Q12H IV ; Start 11/21/18 at 08:30 Fentanyl 100 ml @ 2.5 mls/hr TITRATE IV Last administered on 11/21/18at 09:41; Admin Dose 2.5 MLS/HR; Start 11/21/18 at 09:00 Dopamine HCl/ Dextrose 250 ml @ 5.243 mls/ hr TITRATE IV Last administered on 11/21/18at 09:29; Admin Dose 5.243 MLS/HR; Start 11/21/18 at 09:30 Phenylephrine HCl 250 ml @ 75 mls/hr TITRATE IV ; Start 11/21/18 at 09:30 Epinephrine 4 mg/ Dextrose 250 ml @ 0 mls/hr TITRATE IV ; Start 11/21/18 at 1 0:30 Acetaminophen (Tylenol Supp) 650 mg Q4H PRN [place] TEMP > 37C; Start 11/21/18 at 10:30 Acetaminophen (Tylenol Liquid) 650 mg Q4H PRN PO TEMP > 37C; Start 11/21/18 at 10:30 Allergies: Coded Allergies: No Known Allergy (Unverified , 11/21/18) Past Surgical History Past Surgical Hx: angioplasty, other Social History Alcohol Use: heavy Smoking Status: Current every day smoker Drug Use: none Exam/Review of Systems Exam Vitals Vital Signs Date Temp Pulse Resp B/P (MAP) Pulse Ox O2 O2 Flow FiO2 Time Delivery Rate 11/21/18 80 10:09 11/21/18 17 100/77 100 Mechanical 08:45 (85) Ventilator 11/21/18 50 04:40 11/21/18 3.0 03:13 11/21/18 97.2 03:00 Constitutional: non-verbal Head: normocephalic, atraumatic Eyes: nl conjunctiva, nl sclera ENMT: nl external ears & nose, intubated Neck: supple, non-tender, jvd Respiratory: normal air movement Cardiovascular: irregular rhythm, jugular venous distention (JVD), systolic murmur Gastrointestinal: soft, nl liver, spleen, non-tender Musculoskeletal: nl extremities to inspection Extremities: normal pulses Neurological: unresponsive Results Result Diagram: 11/21/18 1005 11/21/18 0238 Results 24hrs Laboratory Tests Test 11/21/18 02:38 11/21/18 03:07 11/21/18 10:05 White Blood Count 8.8 # 17.0 #H Red Blood Count 5.01 4.72 Hemoglobin 13.1 L 12.4 L Hematocrit 41.4 L 39.1 L Mean Corpuscular Volume 82.6 82.8 Mean Corpuscular Hemoglobin 26.1 L 26.3 L Mean Corpuscular Hemoglobin Concent 31.6 L 31.7 L Red Cell Distribution Width 14.8 H 14.9 H Platelet Count 315 # 290 Mean Platelet Volume 10.8 H 10.8 H Immature Granulocytes % 0.100 1.700 H Neutrophils % 24.8 L 57.1 Lymphocytes % 64.3 H 31.5 Monocytes % 7.9 9.1 Eosinophils % 2.0 0.2 Basophils % 0.9 0.4 Nucleated Red Blood Cells % 0.0 0.2 H Immature Granulocytes # 0.010 0.280 H Neutrophils # 2.2 9.7 H Lymphocytes # 5.7 H 5.3 H Monocytes # 0.7 1.5 H Eosinophils # 0.2 0.0 Basophils # 0.1 0.1 Nucleated Red Blood Cells # 0.0 0.0 Prothrombin Time 12.6 14.6 Prothrombin Time Ratio 1.0 1.1 INR International Normalized Ratio 0.93 1.13 Activated Partial Thromboplast Time 29.2 112.8 *H Sodium Level 144 Potassium Level 3.7 Chloride Level 106 Carbon Dioxide Level 29 Anion Gap 9 Blood Urea Nitrogen 10 Creatinine 1.10 Est Glomerular Filtrat Rate mL/min > 60 Glucose Level 124 Calcium Level 9.3 Total Bilirubin 0.2 Direct Bilirubin 0.00 Indirect Bilirubin 0.2 Aspartate Amino Transf (AST/SGOT) 35 Alanine Aminotransferase (ALT/SGPT) 17 Alkaline Phosphatase 78 Troponin I 1.300 *H Total Protein 6.6 Albumin 3.7 Globulin 2.90 Albumin/Globulin Ratio 1.27 Lipase 60 Lactic Acid Level 3.3 *H Medications Medication Current Medications Docusate Sodium (Colace) 100 mg Q12H PRN PO CONSTIPATION; Start 11/21/18 at 05:00 Bisacodyl (Dulcolax) 5 mg DAILY PRN PO CONSTIPATION; Start 11/21/18 at 05:00 Pantoprazole (Protonix Iv) 40 mg DAILY@06 IV ; Start 11/21/18 at 06:00 Fentanyl (Sublimaze) 25 mcg Q10M IV ; Start 11/21/18 at 05:00 Midazolam HCl 50 ml @ 2 mls/hr PER PROTOCOL IV ; Start 11/21/18 at 05:00 Acetaminophen (Tylenol Supp) 500 mg Q6H AR ; Start 11/22/18 at 05:00 Acetaminophen (Tylenol Liquid) 500 mg Q6H PO ; Start 11/22/18 at 05:00 Meperidine HCl (Demerol) 12.5 mg Q4H PRN IV POST OPERATIVE SHIVERING; Start 11/21/18 at 05:00 Meperidine HCl (Demerol) 25 mg Q4H PRN IV POST OPERATIVE SHIVERING; Start 11/21/18 at 05:00 Eye Lubricant (Akwa Oint) 1 applic Q6 BOTH EYES ; Start 11/21/18 at 06:00 Eye Lubricant (Artificial Tears Oph) 2 drop Q6 BOTH EYES ; Start 11/21/18 at 06: 00 Eptifibatide 100 ml @ 3.273 mls/ hr Q24H IV ; Start 11/21/18 at 06:30; Stop 11/22/18 at 06:29 Lidocaine HCl/ Dextrose 500 ml @ 15 mls/hr Q24H IV ; Start 11/21/18 at 06:30; Stop 11/22/18 at 06:29 Heparin Sodium (Porcine) (Heparin (1000 Units/ml)) 3,300 unit PER PROTOCOL PRN IV aPTT<47; Start 11/21/18 at 06:30 Heparin Sodium (Porcine) 250 ml @ 6.5 mls/hr PER PROTOCOL IV ; Start 11/21/18 at 06:30 Levetiracetam (Keppra) 500 mg TID PO ; Start 11/21/18 at 09:00 Lorazepam (Ativan) 1 mg Q4 PRN IV CONTROL WITHDRAWAL SYMPTOMS; Start 11/21/18 at 08:00 Propofol 100 ml @ 1.637 mls/ hr Q12H IV ; Start 11/21/18 at 08:30 Fentanyl 100 ml @ 2.5 mls/hr TITRATE IV Last administered on 11/21/18at 09:41; Admin Dose 2.5 MLS/HR; Start 11/21/18 at 09:00 Dopamine HCl/ Dextrose 250 ml @ 5.243 mls/ hr TITRATE IV Last administered on 11/21/18at 09:29; Admin Dose 5.243 MLS/HR; Start 11/21/18 at 09:30 Phenylephrine HCl 250 ml @ 75 mls/hr TITRATE IV ; Start 11/21/18 at 09:30 Epinephrine 4 mg/ Dextrose 250 ml @ 0 mls/hr TITRATE IV ; Start 11/21/18 at 10:30 Acetaminophen (Tylenol Supp) 650 mg Q4H PRN [place] TEMP > 37C; Start 11/21/18 at 10:30 Acetaminophen (Tylenol Liquid) 650 mg Q4H PRN PO TEMP > 37C; Start 11/21/18 at 10:30 JUAN GRAJEDA MD Nov 21, 2018 10:53
[2018-11-21] MEDS: PHENYLephrine 20MG IN 250 ML 250 ML IV SCH ×2 (11:52→13:52)
[2018-11-21] MEDS: MIDAZOLAM (DRIP) 50 mg/50 mL 50 ML IV SCH ×3 (11:54→20:28)
[2018-11-21] MEDS: NORepinephrine 32 MG in DEXTROSE 5% 218 ML IV SCH (11:54)
[2018-11-21] MEDS: AMIODARONE 900 MG in DEXTROSE 5% 482 ML IV SCH (11:55)
[2018-11-21] MEDS: EPINEPHrine 4 MG in DEXTROSE 5% 246 ML IV SCH ×2 (11:59→17:57)
[2018-11-21] MEDS ORDERED: OCULAR LUBRICANT 3.5 GM OPH OINT BOTH EYES SCH (12:00)
[2018-11-21] MEDS ORDERED: ARTIFICIAL TEARS 15 ML OPH BOTH EYES SCH (12:00)
--- NOTE | 2018-11-21 12:26 | CONS ---
Assessment/Plan Assessment/Plan Assessment/Plan (Daily) Coronary artery disease status post PCI with drug-eluting stent in the LAD Status post cardiogenic shock with intra-aortic balloon pump placement Patient is very critical at the present time multiple pressors He did wake up this morning Patient is currently on multiple anticoagulation is as well Patient is not a candidate to undergo surgery at the present time at the conclusion of the cardiac catheterizations the vessels were open with RUBY III flow We will continue medical management with intra-aortic balloon pump and pressors Discussed with cardiology service Discussed with the nursing staff and the referring physicians Consultation Date/Type/Reason Admit Date/Time Date of Consultation: Nov 21, 2018 Type of Consult Coronary artery disease Reason for Consultation Same Date/Time of Note DATE: 11/21/18 TIME: 12:22 Hx of Present Illness This is a 53-year-old male with a history of coronary artery disease has had PCI in the past was admitted through the emergency room because of chest pain and abdominal pain patient subsequently had EKG changes with left bundle branch block troponin was 1.23 and he was slightly hypotensive with blood pressures in the 90s patient was taken to the cardiac catheterization lab emergently where he underwent PCI with a drug eluding stent of LAD and intervention on the circumflex during the course of the procedure he had thrombosis of the coronaries and had to be intervened again subsequently all the vessels were open with RUBY III flow however the patient was in cardiogenic shock intra-aortic balloon pump was placed transvenous pacemaker was placed and the patient was transferred to the intensive care unit in critical condition she is currently in the intensive care unit on multiple pressors intra-aortic balloon pump in place blood pressure is 120s over 60s on the balloon pump and he woke up this morning Respiratory: no complaints Cardiovascular: no complaints Gastrointestinal: no complaints Genitourinary: no complaints Musculoskeletal: no complaints Skin: no complaints Neurologic: no complaints Endocrine: no complaints Lymphatic: no complaints Past Medical History Medical History: angina, coronary artery disease, hypertension Home Meds Reported Medications Levetiracetam* (Levetiracetam*) 500 Mg Tablet, 500 MG PO TID, TAB 11/11/17 Benazepril Hcl* (Benazepril Hcl*) 10 Mg Tablet, 10 MG PO DAILY, #30 TAB 11/11/17 Aspirin* (Aspirin* EC) 81 Mg Tablet.dr, 81 MG PO DAILY, TAB 11/11/17 Medications Current Medications Docusate Sodium (Colace) 100 mg Q12H PRN PO CONSTIPATION; Start 11/21/18 at 05:00 Bisacodyl (Dulcolax) 5 mg DAILY PRN PO CONSTIPATION; Start 11/21/18 at 05:00 Pantoprazole (Protonix Iv) 40 mg DAILY@06 IV Last administered on 11/21/18at 06 :00; Admin Dose 40 MG; Start 11/21/18 at 06:00 Fentanyl (Sublimaze) 25 mcg Q10M IV ; Start 11/21/18 at 05:00 Midazolam HCl 50 ml @ 2 mls/hr PER PROTOCOL IV Last administered on 11/21/18at 11:54; Admin Dose 10 MLS/HR; Start 11/21/18 at 05:00 Acetaminophen (Tylenol Supp) 500 mg Q6H [place] ; Start 11/22/18 at 05:00 Acetaminophen (Tylenol Liquid) 500 mg Q6H PO ; Start 11/22/18 at 05:00 Meperidine HCl (Demerol) 12.5 mg Q4H PRN IV POST OPERATIVE SHIVERING; Start 11/21/18 at 05:00 Meperidine HCl (Demerol) 25 mg Q4H PRN IV POST OPERATIVE SHIVERING; Start 11/21/18 at 05:00 Eye Lubricant (Akwa Oint) 1 applic Q6 BOTH EYES ; Start 11/21/18 at 06:00 Eye Lubricant (Artificial Tears Oph) 2 drop Q6 BOTH EYES ; Start 11/21/18 at 06:00 Eptifibatide 100 ml @ 3.273 mls/ hr Q24H IV Last administered on 11/21/18at 06:30; Admin Dose 3.273 MLS/HR; Start 11/21/18 at 06:30; Stop 11/22/18 at 06:29 Lidocaine HCl/ Dextrose 500 ml @ 15 mls/hr Q24H IV ; Start 11/21/18 at 06:30; Stop 11/22/18 at 06:29 Heparin Sodium (Porcine) (Heparin (1000 Units/ml)) 3,300 unit PER PROTOCOL PRN IV aPTT<47; Start 11/21/18 at 06:30 Heparin Sodium (Porcine) 250 ml @ 6.5 mls/hr PER PROTOCOL IV ; Start 11/21/18 at 06:30 Levetiracetam (Keppra) 500 mg TID PO ; Start 11/21/18 at 09:00 Lorazepam (Ativan) 1 mg Q4 PRN IV CONTROL WITHDRAWAL SYMPTOMS; Start 11/21/18 at 08:00 Propofol 100 ml @ 1.637 mls/ hr Q12H IV ; Start 11/21/18 at 08:30 Fentanyl 100 ml @ 2.5 mls/hr TITRATE IV Last administered on 11/21/18at 09:41; Admin Dose 2.5 MLS/HR; Start 11/21/18 at 09:00 Dopamine HCl/ Dextrose 250 ml @ 5.243 mls/ hr TITRATE IV Last administered on 11/21/18at 09:29; Admin Dose 5.243 MLS/HR; Start 11/21/18 at 09:30 Phenylephrine HCl 250 ml @ 75 mls/hr TITRATE IV Last administered on 11/21/18at 11:52; Admin Dose 225 MLS/HR; Start 11/21/18 at 09:30 Epinephrine 4 mg/ Dextrose 250 ml @ 3.75 mls/hr TITRATE IV Last administered on 11/21/18at 11:59; Admin Dose 3.75 MLS/HR; Start 11/21/18 at 10:30 Acetaminophen (Tylenol Supp) 650 mg Q4H PRN [place] TEMP > 37C; Start 11/21/18 at 10:30 Acetaminophen (Tylenol Liquid) 650 mg Q4H PRN PO TEMP > 37C; Start 11/21/18 at 10:30 Amiodarone HCl 900 mg/Dextrose 500 ml @ 0 mls/hr Q0M IV Last administered on 11/21/18at 11:55; Admin Dose 33.3 MLS/HR; Start 11/21/18 at 11:00; Stop 11/22/18 at 10:59 Norepinephrine 32 mg/Dextrose 250 ml @ 0.47 mls/hr TITRATE IV Last administered on 11/21/18at 11:54; Admin Dose 9.38 MLS/HR; Start 11/21/18 at 11:00 Allergies: Coded Allergies: No Known Allergy (Unverified , 11/21/18) Past Surgical History Past Surgical Hx: angioplasty, other Social History Alcohol Use: heavy Smoking Status: Current every day smoker Drug Use: none Exam/Review of Systems Exam Vitals Vital Signs Date Temp Pulse Resp B/P (MAP) Pulse Ox O2 O2 Flow FiO2 Time Delivery Rate 11/21/18 79 16 100 100 11:00 11/21/18 100/77 Mechanical 08:45 (85) Ventilator 11/21/18 3.0 03:13 11/21/18 97.2 03:00 Eyes: nl conjunctiva, EOMI, nl lids, nl sclera, PERRL ENMT: nl external ears & nose, nl lips & teeth, nl nasal mucosa & septum Neck: supple, non-tender Respiratory: clear to auscultation, normal air movement Cardiovascular: regular rate and rhythm, nl pulses Gastrointestinal: soft, nl liver, spleen, non-tender Musculoskeletal: nl extremities to inspection, nl gait and stance Results Result Diagram: 11/21/18 1005 11/21/18 0238 Results 24hrs Laboratory Tests Test 11/21/18 02:38 11/21/18 03:07 11/21/18 10:05 White Blood Count 8.8 # 17.0 #H Red Blood Count 5.01 4.72 Hemoglobin 13.1 L 12.4 L Hematocrit 41.4 L 39.1 L Mean Corpuscular Volume 82.6 82.8 Mean Corpuscular Hemoglobin 26.1 L 26.3 L Mean Corpuscular Hemoglobin Concent 31.6 L 31.7 L Red Cell Distribution Width 14.8 H 14.9 H Platelet Count 315 # 290 Mean Platelet Volume 10.8 H 10.8 H Immature Granulocytes % 0.100 1.700 H Neutrophils % 24.8 L 57.1 Lymphocytes % 64.3 H 31.5 Monocytes % 7.9 9.1 Eosinophils % 2.0 0.2 Basophils % 0.9 0.4 Nucleated Red Blood Cells % 0.0 0.2 H Immature Granulocytes # 0.010 0.280 H Neutrophils # 2.2 9.7 H Lymphocytes # 5.7 H 5.3 H Monocytes # 0.7 1.5 H Eosinophils # 0.2 0.0 Basophils # 0.1 0.1 Nucleated Red Blood Cells # 0.0 0.0 Prothrombin Time 12.6 14.6 Prothrombin Time Ratio 1.0 1.1 INR International Normalized Ratio 0.93 1.13 Activated Partial Thromboplast Time 29.2 112.8 *H Sodium Level 144 Potassium Level 3.7 Chloride Level 106 Carbon Dioxide Level 29 Anion Gap 9 Blood Urea Nitrogen 10 Creatinine 1.10 Est Glomerular Filtrat Rate mL/min > 60 Glucose Level 124 Calcium Level 9.3 Total Bilirubin 0.2 Direct Bilirubin 0.00 Indirect Bilirubin 0.2 Aspartate Amino Transf (AST/SGOT) 35 Alanine Aminotransferase (ALT/SGPT) 17 Alkaline Phosphatase 78 Troponin I 1.300 *H 18.200 *H Total Protein 6.6 Albumin 3.7 Globulin 2.90 Albumin/Globulin Ratio 1.27 Lipase 60 Lactic Acid Level 3.3 *H Hemoglobin A1c 5.3 Magnesium Level 1.6 L Creatine Kinase 2296 H Creatine Kinase Index 7.9 Creatinine Kinase MB (Mass) 182.00 H Triglycerides Level 50 Cholesterol Level 69 L LDL Cholesterol, Calculated 26 HDL Cholesterol 33 Cholesterol/HDL Ratio 2.0 Thyroid Stimulating Hormone (TSH) Pending Medications Medication Current Medications Docusate Sodium (Colace) 100 mg Q12H PRN PO CONSTIPATION; Start 11/21/18 at 05:00 Bisacodyl (Dulcolax) 5 mg DAILY PRN PO CONSTIPATION; Start 11/21/18 at 05:00 Pantoprazole (Protonix Iv) 40 mg DAILY@06 IV Last administered on 11/21/18at 06:00; Admin Dose 40 MG; Start 11/21/18 at 06:00 Fentanyl (Sublimaze) 25 mcg Q10M IV ; Start 11/21/18 at 05:00 Midazolam HCl 50 ml @ 2 mls/hr PER PROTOCOL IV Last administered on 11/21/18at 11:54; Admin Dose 10 MLS/HR; Start 11/21/18 at 05:00 Acetaminophen (Tylenol Supp) 500 mg Q6H [place] ; Start 11/22/18 at 05:00 Acetaminophen (Tylenol Liquid) 500 mg Q6H PO ; Start 11/22/18 at 05:00 Meperidine HCl (Demerol) 12.5 mg Q4H PRN IV POST OPERATIVE SHIVERING; Start 11/21/18 at 05:00 Meperidine HCl (Demerol) 25 mg Q4H PRN IV POST OPERATIVE SHIVERING; Start 11/21/18 at 05:00 Eye Lubricant (Akwa Oint) 1 applic Q6 BOTH EYES ; Start 11/21/18 at 06:00 Eye Lubricant (Artificial Tears Oph) 2 drop Q6 BOTH EYES ; Start 11/21/18 at 06:00 Eptifibatide 100 ml @ 3.273 mls/ hr Q24H IV Last administered on 11/21/18at 06:30; Admin Dose 3.273 MLS/HR; Start 11/21/18 at 06:30; Stop 11/22/18 at 06:29 Lidocaine HCl/ Dextrose 500 ml @ 15 mls/hr Q24H IV ; Start 11/21/18 at 06:30; Stop 11/22/18 at 06:29 Heparin Sodium (Porcine) (Heparin (1000 Units/ml)) 3,300 unit PER PROTOCOL PRN IV aPTT<47; Start 11/21/18 at 06:30 Heparin Sodium (Porcine) 250 ml @ 6.5 mls/hr PER PROTOCOL IV ; Start 11/21/18 at 06:30 Levetiracetam (Keppra) 500 mg TID PO ; Start 11/21/18 at 09:00 Lorazepam (Ativan) 1 mg Q4 PRN IV CONTROL WITHDRAWAL SYMPTOMS; Start 11/21/18 at 08:00 Propofol 100 ml @ 1.637 mls/ hr Q12H IV ; Start 11/21/18 at 08:30 Fentanyl 100 ml @ 2.5 mls/hr TITRATE IV Last administered on 11/21/18at 09:41; Admin Dose 2.5 MLS/HR; Start 11/21/18 at 09:00 Dopamine HCl/ Dextrose 250 ml @ 5.243 mls/ hr TITRATE IV Last administered on 11/21/18 09:29; Admin Dose 5.243 MLS/HR; Start 11/21/18 at 09:30 Phenylephrine HCl 250 ml @ 75 mls/hr TITRATE IV Last administered on 11/21/18at 11:52; Admin Dose 225 MLS/HR; Start 11/21/18 at 09:30 Epinephrine 4 mg/ Dextrose 250 ml @ 3.75 mls/hr TITRATE IV Last administered on 11/21/18at 11:59; Admin Dose 3.75 MLS/HR; Start 11/21/18 at 10:30 Acetaminophen (Tylenol Supp) 650 mg Q4H PRN [place] TEMP > 37C; Start 11/21/18 at 10:30 Acetaminophen (Tylenol Liquid) 650 mg Q4H PRN PO TEMP > 37C; Start 11/21/18 at 10:30 Amiodarone HCl 900 mg/Dextrose 500 ml @ 0 mls/hr Q0M IV Last administered on 11/21/18at 11:55; Admin Dose 33.3 MLS/HR; Start 11/21/18 at 11:00; Stop 11/22/18 at 10:59 Norepinephrine 32 mg/Dextrose 250 ml @ 0.47 mls/hr TITRATE IV Last administered on 11/21/18at 11:54; Admin Dose 9.38 MLS/HR; Start 11/21/18 at 11:00 ALLISON CAMP MD Nov 21, 2018 12:26
[2018-11-21] MEDS ORDERED: MAGNESIUM SULFATE 2 GM/50 ML 50 ML IVPB ONE ×2 (14:00→20:30)
--- NOTE | 2018-11-21 15:11 | CONS ---
Assessment/Plan Assessment/Plan Assessment/Plan (Daily) 1. Hypomagnesemia 2. Acute kidney injury due to acute prerenal azotemia 3. acute hypoxemic resp failure due to Cardiogenic shock 4.. acute cardiogenic shock with NSTEMI s/p PCI with stent placement, IABP placement, temporary pacemaker placement 5. V.Fibrillation Arrest 6. h/O HTN 7. HO CVA 8. H/o Seizure disorder Plan: pt seen in ICU, on multiple pressors S/P CT surgery consult, currently not a surgical candidate urine output dropping down, keep MAP more than 65 mm Hg Cardiology, CT surgery, Pulmonary has been following [facility] stat to follow up on electrolytes and Cr, Critically ill with multiple pressors for BP Support, poor prognosis Thanks for consultation, I will continue to follow up Consultation Date/Type/Reason Admit Date/Time 11/21/18 Date of Consultation: Nov 21, 2018 Type of Consult NEPHROLOGY Reason for Consultation Hypomagnesemia, Prerenal azotemia, S/p STEMI Requesting Provider: KELVIN GROSS MD Date/Time of Note DATE: 11/21/18 TIME: 15:11 Hx of Present Illness 53-year-old gentleman who presents to the emergency room with epigastric abdominal pain. The patient arrives via EMS. Initial call from the field was possible ST elevation myocardial infarction. Patient did appear to be in acute distress and he was noted to be with low blood pressures as well as heart rates in the 50s. He did have a CT scan of the chest that was performed that did not show any acute abnormalities. EKG was reviewed with the bottle house pumper on-call given the patient's hemodynamic instability high risk non- STEMI as well as his symptoms and given the fact that his initial troponin was elevated at 1.3 patient was taken to the [facility] emerg[facility] for PCI. pt was in cardiogenic shock, he had a IABP placement, PCI of the cervix x3 with a drug- eluting stent in LAD x1 with a drug-eluting stent and Temporary pacemaker placement. Post PCI he has been admitted to ICU, Renal has been consulted for Hypomagnesemia and hemodyanmic monitoring. pt has been on multiple pressors for BP support, CT surgery consulted but pt is too unstable to go to OR- Currently Full Code Subjective hx not possible: pt non-verbal, pt critical status, other (Intuabted on ventilator ) Past Medical History Medical History: angina, coronary artery disease, hypertension, other (H/O CVA, H/o Seizure, H/o Anxiety ) Home Meds Reported Medications Levetiracetam* (Levetiracetam*) 500 Mg Tablet, 500 MG PO TID, TAB 11/11/17 Benazepril Hcl* (Benazepril Hcl*) 10 Mg Tablet, 10 MG PO DAILY, #30 TAB 11/11/17 Aspirin* (Aspirin* EC) 81 Mg Tablet.dr, 81 MG PO DAILY, TAB 11/11/17 Medications Current Medications Docusate Sodium (Colace) 100 mg Q12H PRN PO CONSTIPATION; Start 11/21/18 at 05:00 Bisacodyl (Dulcolax) 5 mg DAILY PRN PO CONSTIPATION; Start 11/21/18 at 05:00 Pantoprazole (Protonix Iv) 40 mg DAILY@06 IV Last administered on 11/21/18at 06:00; Admin Dose 40 MG; Start 11/21/18 at 06:00 Fentanyl (Sublimaze) 25 mcg Q10M IV ; Start 11/21/18 at 05:00 Midazolam HCl 50 ml @ 2 mls/hr PER PROTOCOL IV Last administered on 11/21/18at 11:54; Admin Dose 10 MLS/HR; Start 11/21/18 at 05:00 Acetaminophen (Tylenol Supp) 500 mg Q6H FL ; Start 11/22/18 at 05:00 Acetaminophen (Tylenol Liquid) 500 mg Q6H PO ; Start 11/22/18 at 05:00 Meperidine HCl (Demerol) 12.5 mg Q4H PRN IV POST OPERATIVE SHIVERING; Start 11/21/18 at 05:00 Meperidine HCl (Demerol) 25 mg Q4H PRN IV POST OPERATIVE SHIVERING; Start 11/21/18 at 05:00 Eye Lubricant (Akwa Oint) 1 applic Q6 BOTH EYES Last administered on 11/21/18at 14:16; Admin Dose 1 APPLIC; Start 11/21/18 at 06:00 Eye Lubricant (Artificial Tears Oph) 2 drop Q6 BOTH EYES Last administered on 11/21/18at 14:16; Admin Dose 2 DROP; Start 11/21/18 at 06:00 Eptifibatide 100 ml @ 3.273 mls/ hr Q24H IV Last administered on 11/21/18 06:30; Admin Dose 3.273 MLS/HR; Start 11/21/18 at 06:30; Stop 11/22/18 at 06:29 Lidocaine HCl/ Dextrose 500 ml @ 15 mls/hr Q24H IV ; Start 11/21/18 at 06:30; Stop 11/22/18 at 06:29 Heparin Sodium (Porcine) (Heparin (1000 Units/ml)) 3,300 unit PER PROTOCOL PRN IV aPTT<47; Start 11/21/18 at 06:30 Heparin Sodium (Porcine) 250 ml @ 6.5 mls/hr PER PROTOCOL IV ; Start 11/21/18 at 06:30 Levetiracetam (Keppra) 500 mg TID PO ; Start 11/21/18 at 09:00 Lorazepam (Ativan) 1 mg Q4 PRN IV CONTROL WITHDRAWAL SYMPTOMS; Start 11/21/18 at 08:00 Propofol 100 ml @ 1.637 mls/ hr Q12H IV ; Start 11/21/18 at 08:30 Fentanyl 100 ml @ 2.5 mls/hr TITRATE IV Last administered on 11/21/18 09:41; Admin Dose 2.5 MLS/HR; Start 11/21/18 at 09:00 Dopamine HCl/ Dextrose 250 ml @ 5.243 mls/ hr TITRATE IV Last administered on 11/21/18 09:29; Admin Dose 5.243 MLS/HR; Start 11/21/18 at 09:30 Epinephrine 4 mg/ Dextrose 250 ml @ 3.75 mls/hr TITRATE IV Last administered on 11/21/18 11:59; Admin Dose 3.75 MLS/HR; Start 11/21/18 at 10:30 Amiodarone HCl 900 mg/Dextrose 500 ml @ 0 mls/hr Q0M IV Last administered on 11/21/18 11:55; Admin Dose 33.3 MLS/HR; Start 11/21/18 at 11:00; Stop 11/22/18 at 10:59 Norepinephrine 32 mg/Dextrose 250 ml @ 0.47 mls/hr TITRATE IV Last administered on 11/21/18 11:54; Admin Dose 9.38 MLS/HR; Start 11/21/18 at 11:00 Magnesium Sulfate 50 ml @ 25 mls/hr ONCE ONCE IVPB Last administered on 11/21/18at 14:17; Admin Dose 25 MLS/HR; Start 11/21/18 at 14:00; Stop 11/21/18 at 15:59 Phenylephrine HCl 80 mg/Dextrose 250 ml @ 18.75 mls/ hr TITRATE IV ; Start 11/21/18 at 14:53 Allergies: Coded Allergies: No Known Allergy (Unverified , 11/21/18) Past Surgical History Past Surgical Hx: angioplasty, other Family History Significant Family History: no pertinent family hx Social History Alcohol Use: heavy Smoking Status: Current every day smoker Drug Use: none Exam/Review of Systems Exam Vitals Vital Signs Date Temp Pulse Resp B/P (MAP) Pulse Ox O2 O2 Flow FiO2 Time Delivery Rate 11/21/18 67 18 103/89 Mechanical 12:30 (94) Ventilator 11/21/18 100 100 11:00 11/21/18 3.0 03:13 11/21/18 97.2 03:00 Constitutional: non-verbal, distress, other (Critically ill, intubated on mulitple pressors ) Head: normocephalic Neck: supple, non-tender Respiratory: diminished breath sounds, other (Bilateral coarse BS+, basilar rales) Cardiovascular: regular rate and rhythm Gastrointestinal: soft, non-tender Musculoskeletal: muscle weakness, swelling Extremities: normal pulses Neurological: other (sedated intubated on ventilator ) Skin: nl turgor Lymph: nl lymph nodes Results Result Diagram: 11/21/18 1005 11/21/18 0238 Results 24hrs Laboratory Tests Test 11/21/18 02:38 11/21/18 03:07 11/21/18 10:05 11/21/18 11:36 White Blood Count 8.8 # 17.0 #H Red Blood Count 5.01 4.72 Hemoglobin 13.1 L 12.4 L Hematocrit 41.4 L 39.1 L Mean Corpuscular 82.6 82.8 Volume Mean Corpuscular 26.1 L 26.3 L Hemoglobin Mean Corpuscular 31.6 L 31.7 L Hemoglobin Concen t Red Cell 14.8 H 14.9 H Distribution Width Platelet Count 315 # 290 Mean Platelet 10.8 H 10.8 H Volume Immature 0.100 1.700 H Granulocytes % Neutrophils % 24.8 L 57.1 Lymphocytes % 64.3 H 31.5 Monocytes % 7.9 9.1 Eosinophils % 2.0 0.2 Basophils % 0.9 0.4 Nucleated Red 0.0 0.2 H Blood Cells % Immature 0.010 0.280 H Granulocytes # Neutrophils # 2.2 9.7 H Lymphocytes # 5.7 H 5.3 H Monocytes # 0.7 1.5 H Eosinophils # 0.2 0.0 Basophils # 0.1 0.1 Nucleated Red 0.0 0.0 Blood Cells # Prothrombin Time 12.6 14.6 Prothrombin Time 1.0 1.1 Ratio INR International 0.93 1.13 Normalized Ratio Activated 29.2 112.8 *H Partial Thrombopl ast Time Sodium Level 144 Potassium Level 3.7 Chloride Level 106 Carbon Dioxide 29 Level Anion Gap 9 Blood Urea 10 Nitrogen Creatinine 1.10 Est Glomerular > 60 Filtrat Rate mL/min Glucose Level 124 Calcium Level 9.3 Total Bilirubin 0.2 Direct Bilirubin 0.00 Indirect 0.2 Bilirubin Aspartate Amino 35 Transf (AST/SGOT) Alanine 17 Aminotransferase (ALT/SGPT) Alkaline 78 Phosphatase Troponin I 1.300 *H 18.200 *H Total Protein 6.6 Albumin 3.7 Globulin 2.90 Albumin/Globulin 1.27 Ratio Lipase 60 Lactic Acid Level 3.3 *H Hemoglobin A1c 5.3 Magnesium Level 1.6 L Creatine Kinase 2296 H Creatine Kinase 7.9 Index Creatinine Kinase 182.00 H MB (Mass) Triglycerides 50 Level Cholesterol Level 69 L LDL Cholesterol, 26 Calculated HDL Cholesterol 33 Cholesterol/HDL 2.0 Ratio Thyroid 1.060 Stimulating Hormone (TSH) Blood Gas Blood arterial Specimen Source Arterial Blood 11/21/2018 12:30: Date Drawn 43 PM Arterial Blood pH 7.241 *L (Temp corrected) Arterial Blood 43.3 pCO2 (Temp correct) Arterial Blood 107.7 H pO2 (Temp corrected) Arterial Blood 18.2 L HCO3 Arterial Blood -8.8 L Base Excess Arterial Blood 96.8 Oxygen Saturation Alex Test N/A Arterial Blood A-Line Gas Puncture Site Arterial 0.3 Blood Carboxyhemo globin Arterial Blood 0.3 Methemoglobin Blood Gas A-a O2 562.0 H Differential Oxyhemoglobin 96.2 Percent Blood Gas 37.0 Temperature Blood Gas 16.0 Respiration Rate Blood Gas Actual 18 Respiration Rate Blood Gas VENT - AC Modality FiO2 100.0 Blood Gas Tidal 500.0 Volume Blood Gas Low 5.0 PEEP Setting Blood Gas H THUY CHARLES Critical Value Read Back Blood Gas DT Notified Whom Blood Gas 11/21/2018 12:47: Notified Time 30 PM Test 11/21/18 12:19 11/21/18 13:25 Lactic Acid Level 7.4 *H Creatine Kinase 5199 H Creatine Kinase 6.6 Index Creatinine Kinase 342.00 H MB (Mass) Troponin I 36.500 *H Medications Medication Current Medications Docusate Sodium (Colace) 100 mg Q12H PRN PO CONSTIPATION; Start 11/21/18 at 05:00 Bisacodyl (Dulcolax) 5 mg DAILY PRN PO CONSTIPATION; Start 11/21/18 at 05:00 Pantoprazole (Protonix Iv) 40 mg DAILY@06 IV Last administered on 11/21/18at 06:00; Admin Dose 40 MG; Start 11/21/18 at 06:00 Fentanyl (Sublimaze) 25 mcg Q10M IV ; Start 11/21/18 at 05:00 Midazolam HCl 50 ml @ 2 mls/hr PER PROTOCOL IV Last administered on 11/21/18at 11:54; Admin Dose 10 MLS/HR; Start 11/21/18 at 05:00 Acetaminophen (Tylenol Supp) 500 mg Q6H FL ; Start 11/22/18 at 05:00 Acetaminophen (Tylenol Liquid) 500 mg Q6H PO ; Start 11/22/18 at 05:00 Meperidine HCl (Demerol) 12.5 mg Q4H PRN IV POST OPERATIVE SHIVERING; Start 11/21/18 at 05:00 Meperidine HCl (Demerol) 25 mg Q4H PRN IV POST OPERATIVE SHIVERING; Start 11/21/18 at 05:00 Eye Lubricant (Akwa Oint) 1 applic Q6 BOTH EYES Last administered on 11/21/18at 14:16; Admin Dose 1 APPLIC; Start 11/21/18 at 06:00 Eye Lubricant (Artificial Tears Oph) 2 drop Q6 BOTH EYES Last administered on 11/21/18at 14:16; Admin Dose 2 DROP; Start 11/21/18 at 06:00 Eptifibatide 100 ml @ 3.273 mls/ hr Q24H IV Last administered on 11/21/18at 06:30; Admin Dose 3.273 MLS/HR; Start 11/21/18 at 06:30; Stop 11/22/18 at 06:29 Lidocaine HCl/ Dextrose 500 ml @ 15 mls/hr Q24H IV ; Start 11/21/18 at 06:30; Stop 11/22/18 at 06:29 Heparin Sodium (Porcine) (Heparin (1000 Units/ml)) 3,300 unit PER PROTOCOL PRN IV aPTT<47; Start 11/21/18 at 06:30 Heparin Sodium (Porcine) 250 ml @ 6.5 mls/hr PER PROTOCOL IV ; Start 11/21/18 at 06:30 Levetiracetam (Keppra) 500 mg TID PO ; Start 11/21/18 at 09:00 Lorazepam (Ativan) 1 mg Q4 PRN IV CONTROL WITHDRAWAL SYMPTOMS; Start 11/21/18 at 08:00 Propofol 100 ml @ 1.637 mls/ hr Q12H IV ; Start 11/21/18 at 08:30 Fentanyl 100 ml @ 2.5 mls/hr TITRATE IV Last administered on 11/21/18at 09:41; Admin Dose 2.5 MLS/HR; Start 11/21/18 at 09:00 Dopamine HCl/ Dextrose 250 ml @ 5.243 mls/ hr TITRATE IV Last administered on 11/21/18at 09:29; Admin Dose 5.243 MLS/HR; Start 11/21/18 at 09:30 Epinephrine 4 mg/ Dextrose 250 ml @ 3.75 mls/hr TITRATE IV Last administered on 11/21/18at 11:59; Admin Dose 3.75 MLS/HR; Start 11/21/18 at 10:30 Amiodarone HCl 900 mg/Dextrose 500 ml @ 0 mls/hr Q0M IV Last administered on 11/21/18at 11:55; Admin Dose 33.3 MLS/HR; Start 11/21/18 at 11:00; Stop 11/22/18 at 10:59 Norepinephrine 32 mg/Dextrose 250 ml @ 0.47 mls/hr TITRATE IV Last administered on 11/21/18at 11:54; Admin Dose 9.38 MLS/HR; Start 11/21/18 at 11:00 Magnesium Sulfate 50 ml @ 25 mls/hr ONCE ONCE IVPB Last administered on 11/21/18at 14:17; Admin Dose 25 MLS/HR; Start 11/21/18 at 14:00; Stop 11/21/18 at 15:59 Phenylephrine HCl 80 mg/Dextrose 250 ml @ 18.75 mls/ hr TITRATE IV ; Start 10/31 11/17 at 14:53 LILIBETH COFFEY MD Nov 21, 2018 15:11
[2018-11-21] MEDS: HEPARIN 1000 UNITS/ML 10 ML INJ IV PRN (17:04)
[2018-11-21] MEDS: DEXTROSE 5%-0.45% NACL 1,000 ML IV SCH (19:27)
[2018-11-21] MEDS: PHENYLephrine 80 MG in DEXTROSE 5% 242 ML IV SCH (20:06)
[2018-11-21] MEDS: POTASSIUM CHLORIDE 100 ML IVPB SCH ×2 (20:47→22:51)
[2018-11-21] MEDS: LEVETIRACETAM 500 MG (PMX) 100 ML IVPB SCH (22:51)
[2018-11-21] MEDS ORDERED: SOD CHLORIDE 0.9% 1,000 ML IV ONE (23:00)
[2018-11-22] VITALS (88 sets, daily range): BP systolic 70–110; BP diastolic 42–75; PULSE 69–100; RESP 11–28
[2018-11-22] MEDS: OCULAR LUBRICANT 3.5 GM OPH OINT BOTH EYES SCH ×2 (00:17→06:00)
[2018-11-22] MEDS: ARTIFICIAL TEARS 15 ML OPH BOTH EYES SCH ×2 (00:17→06:00)
[2018-11-22] MEDS: POTASSIUM CHLORIDE 100 ML IVPB SCH (00:49)
[2018-11-22] MEDS: MIDAZOLAM (DRIP) 50 mg/50 mL 50 ML IV SCH ×3 (01:02→16:43)
[2018-11-22] MEDS: EPINEPHrine 4 MG in DEXTROSE 5% 246 ML IV SCH ×2 (01:35→14:31)
[2018-11-22] MEDS: PHENYLephrine 80 MG in DEXTROSE 5% 242 ML IV SCH ×3 (01:43→16:43)
[2018-11-22] MEDS: HEPARIN 1000 UNITS/ML 10 ML INJ IV PRN (02:47)
[2018-11-22] MEDS: DOPamine-D5W 1.6 MG/ML 250 ML IV SCH ×5 (03:55→20:56)
[2018-11-22] MEDS ORDERED: ACETAMINOPHEN 650 MG SUPP PR SCH ×2 (05:00→10:30)
[2018-11-22] MEDS ORDERED: ACETAMINOPHEN 650MG/20.3ML CUP PO SCH ×2 (05:00→10:30)
[2018-11-22] MEDS: PANTOPRAZOLE 40 MG INJ IV SCH (06:27)
[2018-11-22] MEDS: FENTAnyl 50 MCG/ML VIAL IV SCH (07:20)
[2018-11-22] MEDS: DEXTROSE 5%-0.45% NACL 1,000 ML IV SCH ×2 (07:20→09:40)
[2018-11-22] MEDS: FENTAnyl (DRIP) 1000 mcg/100mL 100 ML IV SCH ×2 (07:41→18:33)
[2018-11-22] MEDS: AMIODARONE 900 MG in DEXTROSE 5% 482 ML IV SCH (07:41)
[2018-11-22] MEDS: PROPOFOL 100 ML IV SCH ×2 (08:30→20:30)
[2018-11-22] MEDS ORDERED: TICAGRELOR 90 MG TABLET PO SCH (09:00)
--- NOTE | 2018-11-22 09:10 | PN ---
Date/Time of Note Date/Time of Note DATE: 11/22/18 TIME: 09:10 Assessment/Plan VTE Prophylaxis Risk score (from Nsg)>0 risk: 5 SCD applied (from Nsg): Yes Pharmacological prophylaxis: heparin Lines/Catheters IV Catheter Type (from Nrsg): A LINE/BALLOON Urinary Cath still in place: Yes Reason Cath still needed: terminal illness/intractable pain Assessment/Plan Assessment/Plan 1. Acute upper GI bleed - most likely exacerbated by anticoagulation - NG tube placed and PPI drip started - Per Cardiology, important to continue heparin drip and Brilinta given recent PCI with stenting - will monitor H/H and transfuse as needed 2. Acute coronary syndrome s/p PEA and Vfib arrest - Given patient critical condition, Dr. Wiley initiated transfer to [facility] for Impella placement and possible ECMO - taken for emergent cath on 11/21 with placement of 4 stents complicated by Vfib arrest during PCI. - episode of PEA with torsades as well with ACLS and ROSC - Cardiology on board and appreciate recommendations. - CT surgery consultation appreciated and will hold off on any intervention at this time given critical status and return of flow during PCI 3. Cardiogenic shock - continue pressor support to maintain MAP >65 - will need transfer to higher level of care for Impella placement 4. Acute hypoxic respiratory failure secondary to #1 - Pulm on board for vent management - sedation on board 5. Lactic acidosis - in setting of shock - IVF on board 6. Vfib arrest - Amiodarone ggt 7. ISHAAN - in setting of shock - Nephrology consultation appreciated 8. Disposition - Continue monitoring in ICU while requiring pressor support, vent support, and balloon pump pending transfer to higher level of care - prognosis remains critical >60 minutes of critical care time spent with patient Result Diagram: 11/22/18 0615 11/22/18 0615 Results 24hrs Laboratory Tests Test 11/21/18 10:05 11/21/18 11:36 11/21/18 12:19 11/21/18 13:25 White Blood Count 17.0 #H Red Blood Count 4.72 Hemoglobin 12.4 L Hematocrit 39.1 L Mean Corpuscular 82.8 Volume Mean Corpuscular 26.3 L Hemoglobin Mean Corpuscular 31.7 L Hemoglobin Concen t Red Cell 14.9 H Distribution Width Platelet Count 290 Mean Platelet 10.8 H Volume Immature 1.700 H Granulocytes % Neutrophils % 57.1 Lymphocytes % 31.5 Monocytes % 9.1 Eosinophils % 0.2 Basophils % 0.4 Nucleated Red 0.2 H Blood Cells % Immature 0.280 H Granulocytes # Neutrophils # 9.7 H Lymphocytes # 5.3 H Monocytes # 1.5 H Eosinophils # 0.0 Basophils # 0.1 Nucleated Red 0.0 Blood Cells # Prothrombin Time 14.6 Prothrombin Time 1.1 Ratio INR International 1.13 Normalized Ratio Activated 112.8 *H Partial Thrombopl ast Time Hemoglobin A1c 5.3 Magnesium Level 1.6 L Creatine Kinase 2296 H 5199 H Creatine Kinase 7.9 6.6 Index Creatinine Kinase 182.00 H 342.00 H MB (Mass) Troponin I 18.200 *H 36.500 *H Triglycerides 50 Level Cholesterol Level 69 L LDL Cholesterol, 26 Calculated HDL Cholesterol 33 Cholesterol/HDL 2.0 Ratio Thyroid 1.060 Stimulating Hormone (TSH) Blood Gas Blood arterial Specimen Source Arterial Blood 11/21/2018 12:30: Date Drawn 43 PM Arterial Blood pH 7.241 *L (Temp corrected) Arterial Blood 43.3 pCO2 (Temp correct) Arterial Blood 107.7 H pO2 (Temp corrected) Arterial Blood 18.2 L HCO3 Arterial Blood -8.8 L Base Excess Arterial Blood 96.8 Oxygen Saturation Alex Test N/A Arterial Blood A-Line Gas Puncture Site Arterial 0.3 Blood Carboxyhemo globin Arterial Blood 0.3 Methemoglobin Blood Gas A-a O2 562.0 H Differential Oxyhemoglobin 96.2 Percent Blood Gas 37.0 Temperature Blood Gas 16.0 Respiration Rate Blood Gas Actual 18 Respiration Rate Blood Gas VENT - AC Modality FiO2 100.0 Blood Gas Tidal 500.0 Volume Blood Gas Low 5.0 PEEP Setting Blood Gas H THUY CHARLES Critical Value Read Back Blood Gas DT Notified Whom Blood Gas 11/21/2018 12:47: Notified Time 30 PM Lactic Acid Level 7.4 *H Test 11/21/18 15:20 11/21/18 18:33 11/21/18 18:34 11/22/18 00:13 Activated 41.6 H Partial Thrombopl ast Time Lactic Acid Level 6.4 *H 6.6 *H Sodium Level 135 134 L Potassium Level 2.8 *L 3.0 L Chloride Level 97 101 Carbon Dioxide 20 L 17 L Level Anion Gap 18 #H 16 H Blood Urea 15 15 Nitrogen Creatinine 1.98 H 1.99 H Est Glomerular 43 L 43 L Filtrat Rate mL/min Glucose Level 334 #H 166 # Calcium Level 7.7 L 7.1 L Creatine Kinase 6071 H 7013 H Creatine Kinase 10.0 9.9 Index Creatinine Kinase 605.00 H 697.00 H MB (Mass) Troponin I 65.200 *H 66.600 *H Phosphorus Level 2.9 Magnesium Level 3.1 H Test 11/22/18 02:09 11/22/18 05:00 11/22/18 06:15 Activated > 180.0 *H 154.4 *H Partial Thrombopl ast Time Blood Gas Blood arterial Specimen Source Arterial Blood 11/22/2018 4:00:2 Date Drawn 8 AM Arterial Blood pH 7.320 L (Temp corrected) Arterial Blood 36.4 pCO2 (Temp correct) Arterial Blood 68.3 L pO2 (Temp corrected) Arterial Blood 18.3 L HCO3 Arterial Blood -7.0 L Base Excess Arterial Blood 93.0 L Oxygen Saturation Alex Test N/A Arterial Blood A-Line Gas Puncture Site Arterial 0.3 Blood Carboxyhemo globin Arterial Blood 0.2 Methemoglobin Blood Gas A-a O2 463.9 H Differential Oxyhemoglobin 92.5 L Percent Blood Gas 37.0 Temperature Blood Gas 28.0 Respiration Rate Blood Gas Actual 28 Respiration Rate Blood Gas VENT - AC Modality FiO2 80.0 Blood Gas Tidal 500.0 Volume Blood Gas Low 5.0 PEEP Setting Blood Gas [place] Notified Whom Blood Gas 11/22/2018 5:03:1 Notified Time 2 AM White Blood Count 10.2 # Red Blood Count 4.48 L Hemoglobin 11.6 L Hematocrit 36.1 L Mean Corpuscular 80.6 L Volume Mean Corpuscular 25.9 L Hemoglobin Mean Corpuscular 32.1 Hemoglobin Concen t Red Cell 14.8 H Distribution Width Platelet Count 294 Mean Platelet 11.0 H Volume Immature 0.500 H Granulocytes % Neutrophils % 58.6 Lymphocytes % 34.4 Monocytes % 5.8 Eosinophils % 0.4 Basophils % 0.3 Nucleated Red 0.0 Blood Cells % Immature 0.050 H Granulocytes # Neutrophils # 6.0 Lymphocytes # 3.5 H Monocytes # 0.6 Eosinophils # 0.0 Basophils # 0.0 Nucleated Red 0.0 Blood Cells # Sodium Level 133 L Potassium Level 3.7 Chloride Level 99 Carbon Dioxide 20 L Level Anion Gap 14 H Blood Urea 17 Nitrogen Creatinine 1.96 H Est Glomerular 44 L Filtrat Rate mL/min Glucose Level 106 Lactic Acid Level 2.0 Calcium Level 7.0 L Phosphorus Level 4.3 Magnesium Level 2.4 Total Bilirubin 0.5 Direct Bilirubin 0.00 Indirect 0.5 Bilirubin Aspartate Amino 715 #H Transf (AST/SGOT) Alanine 130 H Aminotransferase (ALT/SGPT) Alkaline 83 Phosphatase Creatine Kinase 6664 H Creatine Kinase 12.0 Index Creatinine Kinase > 800.00 H MB (Mass) Troponin I 109.000 *H Total Protein 5.5 #L Albumin 2.8 L Globulin 2.70 Albumin/Globulin 1.03 Ratio Free Thyroxine 2.08 Index Thyroxine (T4) 5.3 L Triiodothyronine 39.2 (T3) Uptake Subjective 24 Hr Interval Summary Free Text/Dictation Patient remains intubated on pressor support. Noted with upper GI bleed this am with coffee ground emesis. NG tube in place. Trivedi with hematuria. Exam/Review of Systems Exam Vitals Vital Signs Date Temp Pulse Resp B/P (MAP) Pulse Ox O2 O2 Flow FiO2 Time Delivery Rate 11/22/18 85 08:33 11/22/18 80 08:00 11/22/18 28 88/49 (62) 100 Mechanical 06:45 Ventilator 11/22/18 98.1 06:00 11/21/18 3.0 03:13 Intake and Output 11/21/18 11/21/18 11/22/18 1515:00 23:00 07:00 IntakeIntake Total 657.750 ml 1714.500 ml 1690.010 ml OutputOutput Total 1200 ml 200 ml BalanceBalance 657.750 ml 514.500 ml 1490.010 ml Exam General: Patient is intubated and sedated. HEENT: Atraumatic, normocephalic. The pupils are equal, round and reactive. NG tube in place with dark coffee ground emesis Neck: Supple with full range of motion. No rigidity or meningismus Lungs: clear bilaterally, no wheezing or rhonchi Heart: S1, S2, regular rate, and rhythm, no murmurs Abdomen: soft, nondistended, no rebound or guarding. Extremities: Normal to inspection, no edema no cyanosis Neuro: nonresponsive Results Results 24hrs Laboratory Tests Test 11/21/18 10:05 11/21/18 11:36 11/21/18 12:19 11/21/18 13:25 White Blood Count 17.0 #H Red Blood Count 4.72 Hemoglobin 12.4 L Hematocrit 39.1 L Mean Corpuscular 82.8 Volume Mean Corpuscular 26.3 L Hemoglobin Mean Corpuscular 31.7 L Hemoglobin Concen t Red Cell 14.9 H Distribution Width Platelet Count 290 Mean Platelet 10.8 H Volume Immature 1.700 H Granulocytes % Neutrophils % 57.1 Lymphocytes % 31.5 Monocytes % 9.1 Eosinophils % 0.2 Basophils % 0.4 Nucleated Red 0.2 H Blood Cells % Immature 0.280 H Granulocytes # Neutrophils # 9.7 H Lymphocytes # 5.3 H Monocytes # 1.5 H Eosinophils # 0.0 Basophils # 0.1 Nucleated Red 0.0 Blood Cells # Prothrombin Time 14.6 Prothrombin Time 1.1 Ratio INR International 1.13 Normalized Ratio Activated 112.8 *H Partial Thrombopl ast Time Hemoglobin A1c 5.3 Magnesium Level 1.6 L Creatine Kinase 2296 H 5199 H Creatine Kinase 7.9 6.6 Index Creatinine Kinase 182.00 H 342.00 H MB (Mass) Troponin I 18.200 *H 36.500 *H Triglycerides 50 Level Cholesterol Level 69 L LDL Cholesterol, 26 Calculated HDL Cholesterol 33 Cholesterol/HDL 2.0 Ratio Thyroid 1.060 Stimulating Hormone (TSH) Blood Gas Blood arterial Specimen Source Arterial Blood 11/21/2018 12:30: Date Drawn 43 PM Arterial Blood pH 7.241 *L (Temp corrected) Arterial Blood 43.3 pCO2 (Temp correct) Arterial Blood 107.7 H pO2 (Temp corrected) Arterial Blood 18.2 L HCO3 Arterial Blood -8.8 L Base Excess Arterial Blood 96.8 Oxygen Saturation Alex Test N/A Arterial Blood A-Line Gas Puncture Site Arterial 0.3 Blood Carboxyhemo globin Arterial Blood 0.3 Methemoglobin Blood Gas A-a O2 562.0 H Differential Oxyhemoglobin 96.2 Percent Blood Gas 37.0 Temperature Blood Gas 16.0 Respiration Rate Blood Gas Actual 18 Respiration Rate Blood Gas VENT - AC Modality FiO2 100.0 Blood Gas Tidal 500.0 Volume Blood Gas Low 5.0 PEEP Setting Blood Gas H THUY RN Critical Value Read Back Blood Gas DT Notified Whom Blood Gas 11/21/2018 12:47: Notified Time 30 PM Lactic Acid Level 7.4 *H Test 11/21/18 15:20 11/21/18 18:33 11/21/18 18:34 11/22/18 00:13 Activated 41.6 H Partial Thrombopl ast Time Lactic Acid Level 6.4 *H 6.6 *H Sodium Level 135 134 L Potassium Level 2.8 *L 3.0 L Chloride Level 97 101 Carbon Dioxide 20 L 17 L Level Anion Gap 18 #H 16 H Blood Urea 15 15 Nitrogen Creatinine 1.98 H 1.99 H Est Glomerular 43 L 43 L Filtrat Rate mL/min Glucose Level 334 #H 166 # Calcium Level 7.7 L 7.1 L Creatine Kinase 6071 H 7013 H Creatine Kinase 10.0 9.9 Index Creatinine Kinase 605.00 H 697.00 H MB (Mass) Troponin I 65.200 *H 66.600 *H Phosphorus Level 2.9 Magnesium Level 3.1 H Test 11/22/18 02:09 11/22/18 05:00 11/22/18 06:15 Activated > 180.0 *H 154.4 *H Partial Thrombopl ast Time Blood Gas Blood arterial Specimen Source Arterial Blood 11/22/2018 4:00:2 Date Drawn 8 AM Arterial Blood pH 7.320 L (Temp corrected) Arterial Blood 36.4 pCO2 (Temp correct) Arterial Blood 68.3 L pO2 (Temp corrected) Arterial Blood 18.3 L HCO3 Arterial Blood -7.0 L Base Excess Arterial Blood 93.0 L Oxygen Saturation Alex Test N/A Arterial Blood A-Line Gas Puncture Site Arterial 0.3 Blood Carboxyhemo globin Arterial Blood 0.2 Methemoglobin Blood Gas A-a O2 463.9 H Differential Oxyhemoglobin 92.5 L Percent Blood Gas 37.0 Temperature Blood Gas 28.0 Respiration Rate Blood Gas Actual 28 Respiration Rate Blood Gas VENT - AC Modality FiO2 80.0 Blood Gas Tidal 500.0 Volume Blood Gas Low 5.0 PEEP Setting Blood Gas MA Notified Whom Blood Gas 11/22/2018 5:03:1 Notified Time 2 AM White Blood Count 10.2 # Red Blood Count 4.48 L Hemoglobin 11.6 L Hematocrit 36.1 L Mean Corpuscular 80.6 L Volume Mean Corpuscular 25.9 L Hemoglobin Mean Corpuscular 32.1 Hemoglobin Concen t Red Cell 14.8 H Distribution Width Platelet Count 294 Mean Platelet 11.0 H Volume Immature 0.500 H Granulocytes % Neutrophils % 58.6 Lymphocytes % 34.4 Monocytes % 5.8 Eosinophils % 0.4 Basophils % 0.3 Nucleated Red 0.0 Blood Cells % Immature 0.050 H Granulocytes # Neutrophils # 6.0 Lymphocytes # 3.5 H Monocytes # 0.6 Eosinophils # 0.0 Basophils # 0.0 Nucleated Red 0.0 Blood Cells # Sodium Level 133 L Potassium Level 3.7 Chloride Level 99 Carbon Dioxide 20 L Level Anion Gap 14 H Blood Urea 17 Nitrogen Creatinine 1.96 H Est Glomerular 44 L Filtrat Rate mL/min Glucose Level 106 Lactic Acid Level 2.0 Calcium Level 7.0 L Phosphorus Level 4.3 Magnesium Level 2.4 Total Bilirubin 0.5 Direct Bilirubin 0.00 Indirect 0.5 Bilirubin Aspartate Amino 715 #H Transf (AST/SGOT) Alanine 130 H Aminotransferase (ALT/SGPT) Alkaline 83 Phosphatase Creatine Kinase 6664 H Creatine Kinase 12.0 Index Creatinine Kinase > 800.00 H MB (Mass) Troponin I 109.000 *H Total Protein 5.5 #L Albumin 2.8 L Globulin 2.70 Albumin/Globulin 1.03 Ratio Free Thyroxine 2.08 Index Thyroxine (T4) 5.3 L Triiodothyronine 39.2 (T3) Uptake Medications Medication Current Medications Docusate Sodium (Colace) 100 mg Q12H PRN PO CONSTIPATION; Start 11/21/18 at 05:00 Bisacodyl (Dulcolax) 5 mg DAILY PRN PO CONSTIPATION; Start 11/21/18 at 05:00 Midazolam HCl 50 ml @ 2 mls/hr PER PROTOCOL IV Last administered on 11/22/18at 07:40; Admin Dose 6 MLS/HR; Start 11/21/18 at 05:00 Heparin Sodium (Porcine) (Heparin (1000 Units/ml)) 3,300 unit PER PROTOCOL PRN IV aPTT<47 Last administered on 11/22/18at 02:47; Admin Dose 3,300 UNIT; Start 11/21/18 at 06:30 Heparin Sodium (Porcine) 250 ml @ 6.5 mls/hr PER PROTOCOL IV Last administered on 11/21/18at 17:16; Admin Dose 3 MLS/HR; Start 11/21/18 at 06:30 Lorazepam (Ativan) 1 mg Q4 PRN IV CONTROL WITHDRAWAL SYMPTOMS; Start 11/21/18 at 08:00 Propofol 100 ml @ 1.637 mls/ hr Q12H IV ; Start 11/21/18 at 08:30 Fentanyl 100 ml @ 2.5 mls/hr TITRATE IV Last administered on 11/22/18 07:41; Admin Dose 8 MLS/HR; Start 11/21/18 at 09:00 Dopamine HCl/ Dextrose 250 ml @ 5.243 mls/ hr TITRATE IV Last administered on 11/22/18 08:23; Admin Dose 52.425 MLS/HR; Start 11/21/18 at 09:30 Epinephrine 4 mg/ Dextrose 250 ml @ 3.75 mls/hr TITRATE IV Last administered on 11/22/18 01:35; Admin Dose 33.75 MLS/HR; Start 11/21/18 at 10:30 Amiodarone HCl 900 mg/Dextrose 500 ml @ 0 mls/hr Q0M IV Last administered on 11/22/18 07:41; Admin Dose 16.66 MLS/HR; Start 11/21/18 at 11:00; Stop 11/22/18 at 10:59 Norepinephrine 32 mg/Dextrose 250 ml @ 0.47 mls/hr TITRATE IV Last adminis tered on 11/21/18 11:54; Admin Dose 9.38 MLS/HR; Start 11/21/18 at 11:00 Phenylephrine HCl 80 mg/Dextrose 250 ml @ 18.75 mls/ hr TITRATE IV Last administered on 11/22/18 01:43; Admin Dose 24.38 MLS/HR; Start 11/21/18 at 14:53 Dextrose/Sodium Chloride 1,000 ml @ 75 mls/hr [id number] IV Last administered on 11/21/18 19:27; Admin Dose 75 MLS/HR; Start 11/21/18 at 16:30 Levetiracetam 100 ml @ 400 mls/hr Q12 IVPB Last administered on 11/21/18at 22:51; Admin Dose 400 MLS/HR; Start 11/21/18 at 22:00 Ticagrelor (Brilinta) 90 mg BID PO ; Start 11/22/18 at 09:00 Potassium Chloride 50 ml @ 50 mls/hr K PROTOCOL PRN IVPB PENDING LAB VALUE; Start 11/22/18 at 08:30 Pantoprazole 80 mg/Sodium Chloride 100 ml @ 10 mls/hr Q10H IV ; Start 11/22/18 at 09:00 EARL HOPKINS MD Nov 22, 2018 09:10
[2018-11-22] MEDS: LEVETIRACETAM 500 MG (PMX) 100 ML IVPB SCH ×2 (09:14→20:59)
--- NOTE | 2018-11-22 09:14 | RADRPT ---
Echocardiogram Report Patient Name: PERI STONEPatient ID: [id number] : 1965 (53y 3m)Study Date: 11/21/2018 10:48:47 AM Gender: MAccession #: [id number] Tech: Sharath CarterCastilloDEIDRA lyon Location: [place] [address] Ref.Physician: LILIAN SANDERSON Height(Cm): BSA: Weight(Kg): Quality: GoodAccount #: Procedures: Echocardiographic Report: Transthoracic echocardiogram with complete 2D, M-Mode, and doppler examination. Indications: NSTEMI. Measurements: 2D/M Mode Doppler Measurement Value Normal Range Measurement Value Normal Range LVIDd 2D 4.2 [ 4.2 - 5.8 ] cm AV Peak Vijay 0.7 [ 100.0 - 170.0 ] cm/se c LVIDs 2D 3.3 [ 2.5 - 4.0 ] cm AV Peak PG 2.0 [ 2.0 - 9.0 ] mmHg LVPWd 2D 1.1 [ 0.6 - 1.0 ] cm LVOT Peak Vijay 0.6 [ 70.0 - 110.0 ] cm/sec IVSd 2D 1.1 [ 0.6 - 1.0 ] cm LVOT Peak PG 1.0 [ 2.0 - 6.0 ] mmHg AoR Diam 2D 2.9 [ 2.6 - 3.4 ] cm MV E Peak Vijay 0.9 [ 60.0 - 130.0 ] cm/sec EDV 2D 77.3 [ 62.0 - 150.0 ] ml MV A Peak Vijay 0.2 [ 100.0 - 120.0 ] cm/se c ESV 2D 45.1 [ 21.0 - 61.0 ] ml MV E/A 3.9 [ 0.8 - 1.5 ] ratio EF 2D 41.7 [ 52.0 - 72.0 ] percent MV PHT 50.0 [ 20.0 - 100.0 ] msec LA Dimen 2D 3.2 [ 3.0 - 4.0 ] cm MV Decel Time 169 [ 104 - 258 ] msec MV Decel [place] 5 Lat E` Vijay 0.1 [ 10.0 - 15.0 ] cm/sec Lateral E/E` 11.9 [ 1.0 - 2.0 ] ratio MV E/A 3.9 [ 0.8 - 1.5 ] ratio MVA PHT 4.4 [ 2.0 - 4.0 ] cm2 TR Peak Vijay 2.2 [ 100.0 - 280.0 ] cm/se c TR Peak PG 20.0 mmHg Findings: Left Ventricle: Normal left ventricular systolic function. Normal left ventricular cavity size. Normal left ventricular wall thickness. Ejection fraction is visually estimated at 35-40 %. Right Ventricle: Normal right ventricular size. Normal right ventricular systolic function. Mild right ventricular hypokinesis. Left Atrium: The left atrium is normal in size. Right Atrium: The right atrium is normal in size. Atrial Septum: Normal atrial septum. Ventricular septum: Normal/intact ventricular septum. Mitral Valve: Normal appearance of the mitral valve. Mild mitral valve regurgitation. Aortic Valve: Normal appearance of the aortic valve. No aortic regurgitation. Tricuspid Valve: Normal appearance of the tricuspid valve. Estimated peak PA systolic pressure 20 mmHg. There is mild tricuspid regurgitation. Pulmonic Valve: Normal pulmonic valve appearance. No evidence of pulmonic regurgitation. Pericardium: Normal pericardium with no significant pericardial effusion. Aorta: Normal aortic root. IVC: Normal size and normal respiratory collapse consistent with normal right atrial pressure. Conclusions: Normal left ventricular systolic function. Normal left ventricular cavity size. Normal left ventricular wall thickness. Ejection fraction is visually estimated at 35-40 %. Normal appearance of the mitral valve. Mild mitral valve regurgitation. Normal appearance of the aortic valve. No aortic regurgitation. Normal appearance of the tricuspid valve. Estimated peak PA systolic pressure 20 mmHg. There is mild tricuspid regurgitation. Normal aortic root. Electronically Signed By: Andrew Wiley 2018-11-22 09:13:35 PDT
[2018-11-22] MEDS: POTASSIUM CHLORIDE 50 ML IVPB PRN ×2 (09:19→09:57)
--- NOTE | 2018-11-22 09:37 | CONS ---
Consult Date/Type/Reason Admit Date/Time Nov 21, 2018 at 03:57 Initial Consult Date 11/21/18 Requesting Provider: KELVIN GROSS MD Date/Time of Note DATE: 11/22/18 TIME: 09:34 Objective Vitals Vital Signs Date Temp Pulse Resp B/P (MAP) Pulse Ox O2 O2 Flow FiO2 Time Delivery Rate 11/22/18 85 08:33 11/22/18 80 08:00 11/22/18 28 88/49 (62) 100 Mechanical 06:45 Ventilator 11/22/18 98.1 06:00 11/21/18 3.0 03:13 Intake and Output 11/21/18 11/21/18 11/22/18 1515:00 23:00 07:00 IntakeIntake Total 657.750 ml 1714.500 ml 1690.010 ml OutputOutput Total 1200 ml 200 ml BalanceBalance 657.750 ml 514.500 ml 1490.010 ml Results/Medications Result Diagram: 11/22/18 0615 11/22/18 0615 Results 24 hrs Laboratory Tests Test 11/21/18 10:05 11/21/18 11:36 11/21/18 12:19 11/21/18 13:25 White Blood Count 17.0 #H Red Blood Count 4.72 Hemoglobin 12.4 L Hematocrit 39.1 L Mean Corpuscular 82.8 Volume Mean Corpuscular 26.3 L Hemoglobin Mean Corpuscular 31.7 L Hemoglobin Concen t Red Cell 14.9 H Distribution Width Platelet Count 290 Mean Platelet 10.8 H Volume Immature 1.700 H Granulocytes % Neutrophils % 57.1 Lymphocytes % 31.5 Monocytes % 9.1 Eosinophils % 0.2 Basophils % 0.4 Nucleated Red 0.2 H Blood Cells % Immature 0.280 H Granulocytes # Neutrophils # 9.7 H Lymphocytes # 5.3 H Monocytes # 1.5 H Eosinophils # 0.0 Basophils # 0.1 Nucleated Red 0.0 Blood Cells # Prothrombin Time 14.6 Prothrombin Time 1.1 Ratio INR International 1.13 Normalized Ratio Activated 112.8 *H Partial Thrombopl ast Time Hemoglobin A1c 5.3 Magnesium Level 1.6 L Creatine Kinase 2296 H 5199 H Creatine Kinase 7.9 6.6 Index Creatinine Kinase 182.00 H 342.00 H MB (Mass) Troponin I 18.200 *H 36.500 *H Triglycerides 50 Level Cholesterol Level 69 L LDL Cholesterol, 26 Calculated HDL Cholesterol 33 Cholesterol/HDL 2.0 Ratio Thyroid 1.060 Stimulating Hormone (TSH) Blood Gas Blood arterial Specimen Source Arterial Blood 11/21/2018 12:30: Date Drawn 43 PM Arterial Blood pH 7.241 *L (Temp corrected) Arterial Blood 43.3 pCO2 (Temp correct) Arterial Blood 107.7 H pO2 (Temp corrected) Arterial Blood 18.2 L HCO3 Arterial Blood -8.8 L Base Excess Arterial Blood 96.8 Oxygen Saturation Alex Test N/A Arterial Blood A-Line Gas Puncture Site Arterial 0.3 Blood Carboxyhemo globin Arterial Blood 0.3 Methemoglobin Blood Gas A-a O2 562.0 H Differential Oxyhemoglobin 96.2 Percent Blood Gas 37.0 Temperature Blood Gas 16.0 Respiration Rate Blood Gas Actual 18 Respiration Rate Blood Gas VENT - AC Modality FiO2 100.0 Blood Gas Tidal 500.0 Volume Blood Gas Low 5.0 PEEP Setting Blood Gas H THUY CHARLES Critical Value Read Back Blood Gas DT Notified Whom Blood Gas 11/21/2018 12:47: Notified Time 30 PM Lactic Acid Level 7.4 *H Test 11/21/18 15:20 11/21/18 18:33 11/21/18 18:34 11/22/18 00:13 Activated 41.6 H Partial Thrombopl ast Time Lactic Acid Level 6.4 *H 6.6 *H Sodium Level 135 134 L Potassium Level 2.8 *L 3.0 L Chloride Level 97 101 Carbon Dioxide 20 L 17 L Level Anion Gap 18 #H 16 H Blood Urea 15 15 Nitrogen Creatinine 1.98 H 1.99 H Est Glomerular 43 L 43 L Filtrat Rate mL/min Glucose Level 334 #H 166 # Calcium Level 7.7 L 7.1 L Creatine Kinase 6071 H 7013 H Creatine Kinase 10.0 9.9 Index Creatinine Kinase 605.00 H 697.00 H MB (Mass) Troponin I 65.200 *H 66.600 *H Phosphorus Level 2.9 Magnesium Level 3.1 H Test 11/22/18 02:09 11/22/18 05:00 11/22/18 06:15 Activated > 180.0 *H 154.4 *H Partial Thrombopl ast Time Blood Gas Blood arterial Specimen Source Arterial Blood 11/22/2018 4:00:2 Date Drawn 8 AM Arterial Blood pH 7.320 L (Temp corrected) Arterial Blood 36.4 pCO2 (Temp correct) Arterial Blood 68.3 L pO2 (Temp corrected) Arterial Blood 18.3 L HCO3 Arterial Blood -7.0 L Base Excess Arterial Blood 93.0 L Oxygen Saturation Alex Test N/A Arterial Blood A-Line Gas Puncture Site Arterial 0.3 Blood Carboxyhemo globin Arterial Blood 0.2 Methemoglobin Blood Gas A-a O2 463.9 H Differential Oxyhemoglobin 92.5 L Percent Blood Gas 37.0 Temperature Blood Gas 28.0 Respiration Rate Blood Gas Actual 28 Respiration Rate Blood Gas VENT - AC Modality FiO2 80.0 Blood Gas Tidal 500.0 Volume Blood Gas Low 5.0 PEEP Setting Blood Gas NC Notified Whom Blood Gas 11/22/2018 5:03:1 Notified Time 2 AM White Blood Count 10.2 # Red Blood Count 4.48 L Hemoglobin 11.6 L Hematocrit 36.1 L Mean Corpuscular 80.6 L Volume Mean Corpuscular 25.9 L Hemoglobin Mean Corpuscular 32.1 Hemoglobin Concen t Red Cell 14.8 H Distribution Width Platelet Count 294 Mean Platelet 11.0 H Volume Immature 0.500 H Granulocytes % Neutrophils % 58.6 Lymphocytes % 34.4 Monocytes % 5.8 Eosinophils % 0.4 Basophils % 0.3 Nucleated Red 0.0 Blood Cells % Immature 0.050 H Granulocytes # Neutrophils # 6.0 Lymphocytes # 3.5 H Monocytes # 0.6 Eosinophils # 0.0 Basophils # 0.0 Nucleated Red 0.0 Blood Cells # Sodium Level 133 L Potassium Level 3.7 Chloride Level 99 Carbon Dioxide 20 L Level Anion Gap 14 H Blood Urea 17 Nitrogen Creatinine 1.96 H Est Glomerular 44 L Filtrat Rate mL/min Glucose Level 106 Lactic Acid Level 2.0 Calcium Level 7.0 L Phosphorus Level 4.3 Magnesium Level 2.4 Total Bilirubin 0.5 Direct Bilirubin 0.00 Indirect 0.5 Bilirubin Aspartate Amino 715 #H Transf (AST/SGOT) Alanine 130 H Aminotransferase (ALT/SGPT) Alkaline 83 Phosphatase Creatine Kinase 6664 H Creatine Kinase 12.0 Index Creatinine Kinase > 800.00 H MB (Mass) Troponin I 109.000 *H Total Protein 5.5 #L Albumin 2.8 L Globulin 2.70 Albumin/Globulin 1.03 Ratio Free Thyroxine 2.08 Index Thyroxine (T4) 5.3 L Triiodothyronine 39.2 (T3) Uptake Home Meds Reported Medications Levetiracetam* (Levetiracetam*) 500 Mg Tablet, 500 MG PO TID, TAB 11/11/17 Benazepril Hcl* (Benazepril Hcl*) 10 Mg Tablet, 10 MG PO DAILY, #30 TAB 11/11/17 Aspirin* (Aspirin* EC) 81 Mg Tablet.dr, 81 MG PO DAILY, TAB 11/11/17 Medications Current Medications Docusate Sodium (Colace) 100 mg Q12H PRN PO CONSTIPATION; Start 11/21/18 at 05:00 Bisacodyl (Dulcolax) 5 mg DAILY PRN PO CONSTIPATION; Start 11/21/18 at 05:00 Midazolam HCl 50 ml @ 2 mls/hr PER PROTOCOL IV Last administered on 11/22/18at 07:40; Admin Dose 6 MLS/HR; Start 11/21/18 at 05:00 Heparin Sodium (Porcine) (Heparin (1000 Units/ml)) 3,300 unit PER PROTOCOL PRN IV aPTT<47 Last administered on 11/22/18at 02:47; Admin Dose 3,300 UNIT; Start 11/21/18 at 06:30 Heparin Sodium (Porcine) 250 ml @ 6.5 mls/hr PER PROTOCOL IV Last administered on 11/21/18at 17:16; Admin Dose 3 MLS/HR; Start 11/21/18 at 06:30 Lorazepam (Ativan) 1 mg Q4 PRN IV CONTROL WITHDRAWAL SYMPTOMS; Start 11/21/18 at 08:00 Propofol 100 ml @ 1.637 mls/ hr Q12H IV ; Start 11/21/18 at 08:30 Fentanyl 100 ml @ 2.5 mls/hr TITRATE IV Last administered on 11/22/18 07:41; Admin Dose 8 MLS/HR; Start 11/21/18 at 09:00 Dopamine HCl/ Dextrose 250 ml @ 5.243 mls/ hr TITRATE IV Last administered on 11/22/18 08:23; Admin Dose 52.425 MLS/HR; Start 11/21/18 at 09:30 Epinephrine 4 mg/ Dextrose 250 ml @ 3.75 mls/hr TITRATE IV Last administered on 11/22/18at 01:35; Admin Dose 33.75 MLS/HR; Start 11/21/18 at 10:30 Amiodarone HCl 900 mg/Dextrose 500 ml @ 0 mls/hr Q0M IV Last administered on 11/22/18at 07:41; Admin Dose 16.66 MLS/HR; Start 11/21/18 at 11:00; Stop 11/22/18 at 10:59 Norepinephrine 32 mg/Dextrose 250 ml @ 0.47 mls/hr TITRATE IV Last administered on 11/21/18at 11:54; Admin Dose 9.38 MLS/HR; Start 11/21/18 at 11:00 Phenylephrine HCl 80 mg/Dextrose 250 ml @ 18.75 mls/ hr TITRATE IV Last administered on 11/22/18at 01:43; Admin Dose 24.38 MLS/HR; Start 11/21/18 at 14:53 Dextrose/Sodium Chloride 1,000 ml @ 75 mls/hr [id number] IV Last administered on 11/21/18at 19:27; Admin Dose 75 MLS/HR; Start 11/21/18 at 16:30 Levetiracetam 100 ml @ 400 mls/hr Q12 IVPB Last administered on 11/22/18at 09:14; Admin Dose 400 MLS/HR; Start 11/21/18 at 22:00 Ticagrelor (Brilinta) 90 mg BID PO ; Start 11/22/18 at 09:00 Potassium Chloride 50 ml @ 50 mls/hr K PROTOCOL PRN IVPB PENDING LAB VALUE Last administered on 11/22/18at 09:19; Admin Dose 50 MLS/HR; Start 11/22/18 at 08:30 Pantoprazole 80 mg/Sodium Chloride 100 ml @ 10 mls/hr Q10H IV ; Start 11/22/18 at 09:00 Assessment/Plan Problems: (1) Non-ST elevation myocardial infarction (NSTEMI) (2) Acute coronary syndrome (3) Cardiogenic shock Assessment/Plan (Daily) Cardiogenick shock on 3 pressures and IABP Echo with LVEF 35-40%. Consider Cangelroe and NGT has blood coming out Heparin continue stop integralin Dominant LCx PCI of LCx acute SD and LAD High risk patient Patient need higher mechanical support with possible imella 3.5 and 5.0. Plan to transfer him to [facility] for possible Higher level of care possible Impella, vs ecmo vs LVAD if he makes through d/w in detail will continue care here until patient gets transfer will .KELVIN Vogt MD Nov 22, 2018 09:37
[2018-11-22] MEDS: PANTOPRAZOLE IV 80 MG in SOD CHLORIDE 0.9% 100 ML IV SCH ×2 (09:57→18:32)
[2018-11-22] MEDS: NORepinephrine 32 MG in DEXTROSE 5% 218 ML IV SCH (09:58)
[2018-11-22] MEDS ORDERED: CANGRELOR 50MG / NS 250 BAG IV SCH ×2 (10:00)
--- NOTE | 2018-11-22 10:05 | CONS ---
Consult Date/Type/Reason Admit Date/Time Nov 21, 2018 at 03:57 Initial Consult Date 11/21/18 Type of Consultation: Pulm/CCM Requesting Provider: KELVIN GROSS MD Date/Time of Note DATE: 11/22/18 TIME: 09:55 Subjective Events noted. Large coffee ground emesis. Remains on multiple pressors and IABP in place. Objective Vitals Vital Signs Date Temp Pulse Resp B/P (MAP) Pulse Ox O2 O2 Flow FiO2 Time Delivery Rate 11/22/18 85 08:33 11/22/18 80 08:00 11/22/18 28 88/49 (62) 100 Mechanical 06:45 Ventilator 11/22/18 98.1 06:00 11/21/18 3.0 03:13 Intake and Output 11/21/18 11/21/18 11/22/18 1515:00 23:00 07:00 IntakeIntake Total 657.750 ml 1714.500 ml 1690.010 ml OutputOutput Total 1200 ml 200 ml BalanceBalance 657.750 ml 514.500 ml 1490.010 ml Exam HEENT: Neck supple; no JVD; no LAD, + ET tube CVS: Irreg, S1 and S2, 2/6 systolic murmur CHEST: Coarse BS ABD: Soft, NT, + BS EXT: No c/c; trace edema NEURO: Sedated on the vent. Results/Medications Result Diagram: 11/22/1815 11/22/1815 Results 24 hrs Laboratory Tests Test 11/21/18 10:05 11/21/18 11:36 11/21/18 12:19 11/21/18 13:25 White Blood Count 17.0 #H Red Blood Count 4.72 Hemoglobin 12.4 L Hematocrit 39.1 L Mean Corpuscular 82.8 Volume Mean Corpuscular 26.3 L Hemoglobin Mean Corpuscular 31.7 L Hemoglobin Concen t Red Cell 14.9 H Distribution Width Platelet Count 290 Mean Platelet 10.8 H Volume Immature 1.700 H Granulocytes % Neutrophils % 57.1 Lymphocytes % 31.5 Monocytes % 9.1 Eosinophils % 0.2 Basophils % 0.4 Nucleated Red 0.2 H Blood Cells % Immature 0.280 H Granulocytes # Neutrophils # 9.7 H Lymphocytes # 5.3 H Monocytes # 1.5 H Eosinophils # 0.0 Basophils # 0.1 Nucleated Red 0.0 Blood Cells # Prothrombin Time 14.6 Prothrombin Time 1.1 Ratio INR International 1.13 Normalized Ratio Activated 112.8 *H Partial Thrombopl ast Time Hemoglobin A1c 5.3 Magnesium Level 1.6 L Creatine Kinase 2296 H 5199 H Creatine Kinase 7.9 6.6 Index Creatinine Kinase 182.00 H 342.00 H MB (Mass) Troponin I 18.200 *H 36.500 *H Triglycerides 50 Level Cholesterol Level 69 L LDL Cholesterol, 26 Calculated HDL Cholesterol 33 Cholesterol/HDL 2.0 Ratio Thyroid 1.060 Stimulating Hormone (TSH) Blood Gas Blood arterial Specimen Source Arterial Blood 11/21/2018 12:30: Date Drawn 43 PM Arterial Blood pH 7.241 *L (Temp corrected) Arterial Blood 43.3 pCO2 (Temp correct) Arterial Blood 107.7 H pO2 (Temp corrected) Arterial Blood 18.2 L HCO3 Arterial Blood -8.8 L Base Excess Arterial Blood 96.8 Oxygen Saturation Alex Test N/A Arterial Blood A-Line Gas Puncture Site Arterial 0.3 Blood Carboxyhemo globin Arterial Blood 0.3 Methemoglobin Blood Gas A-a O2 562.0 H Differential Oxyhemoglobin 96.2 Percent Blood Gas 37.0 Temperature Blood Gas 16.0 Respiration Rate Blood Gas Actual 18 Respiration Rate Blood Gas VENT - AC Modality FiO2 100.0 Blood Gas Tidal 500.0 Volume Blood Gas Low 5.0 PEEP Setting Blood Gas H THUY CHARLES Critical Value Read Back Blood Gas DT Notified Whom Blood Gas 11/21/2018 12:47: Notified Time 30 PM Lactic Acid Level 7.4 *H Test 11/21/18 15:20 11/21/18 18:33 11/21/18 18:34 11/22/18 00:13 Activated 41.6 H Partial Thrombopl ast Time Lactic Acid Level 6.4 *H 6.6 *H Sodium Level 135 134 L Potassium Level 2.8 *L 3.0 L Chloride Level 97 101 Carbon Dioxide 20 L 17 L Level Anion Gap 18 #H 16 H Blood Urea 15 15 Nitrogen Creatinine 1.98 H 1.99 H Est Glomerular 43 L 43 L Filtrat Rate mL/min Glucose Level 334 #H 166 # Calcium Level 7.7 L 7.1 L Creatine Kinase 6071 H 7013 H Creatine Kinase 10.0 9.9 Index Creatinine Kinase 605.00 H 697.00 H MB (Mass) Troponin I 65.200 *H 66.600 *H Phosphorus Level 2.9 Magnesium Level 3.1 H Test 11/22/18 02:09 11/22/18 05:00 11/22/18 06:15 Activated > 180.0 *H 154.4 *H Partial Thrombopl ast Time Blood Gas Blood arterial Specimen Source Arterial Blood 11/22/2018 4:00:2 Date Drawn 8 AM Arterial Blood pH 7.320 L (Temp corrected) Arterial Blood 36.4 pCO2 (Temp correct) Arterial Blood 68.3 L pO2 (Temp corrected) Arterial Blood 18.3 L HCO3 Arterial Blood -7.0 L Base Excess Arterial Blood 93.0 L Oxygen Saturation Alex Test N/A Arterial Blood A-Line Gas Puncture Site Arterial 0.3 Blood Carboxyhemo globin Arterial Blood 0.2 Methemoglobin Blood Gas A-a O2 463.9 H Differential Oxyhemoglobin 92.5 L Percent Blood Gas 37.0 Temperature Blood Gas 28.0 Respiration Rate Blood Gas Actual 28 Respiration Rate Blood Gas VENT - AC Modality FiO2 80.0 Blood Gas Tidal 500.0 Volume Blood Gas Low 5.0 PEEP Setting Blood Gas NC Notified Whom Blood Gas 11/22/2018 5:03:1 Notified Time 2 AM White Blood Count 10.2 # Red Blood Count 4.48 L Hemoglobin 11.6 L Hematocrit 36.1 L Mean Corpuscular 80.6 L Volume Mean Corpuscular 25.9 L Hemoglobin Mean Corpuscular 32.1 Hemoglobin Concen t Red Cell 14.8 H Distribution Width Platelet Count 294 Mean Platelet 11.0 H Volume Immature 0.500 H Granulocytes % Neutrophils % 58.6 Lymphocytes % 34.4 Monocytes % 5.8 Eosinophils % 0.4 Basophils % 0.3 Nucleated Red 0.0 Blood Cells % Immature 0.050 H Granulocytes # Neutrophils # 6.0 Lymphocytes # 3.5 H Monocytes # 0.6 Eosinophils # 0.0 Basophils # 0.0 Nucleated Red 0.0 Blood Cells # Sodium Level 133 L Potassium Level 3.7 Chloride Level 99 Carbon Dioxide 20 L Level Anion Gap 14 H Blood Urea 17 Nitrogen Creatinine 1.96 H Est Glomerular 44 L Filtrat Rate mL/min Glucose Level 106 Lactic Acid Level 2.0 Calcium Level 7.0 L Phosphorus Level 4.3 Magnesium Level 2.4 Total Bilirubin 0.5 Direct Bilirubin 0.00 Indirect 0.5 Bilirubin Aspartate Amino 715 #H Transf (AST/SGOT) Alanine 130 H Aminotransferase (ALT/SGPT) Alkaline 83 Phosphatase Creatine Kinase 6664 H Creatine Kinase 12.0 Index Creatinine Kinase > 800.00 H MB (Mass) Troponin I 109.000 *H Total Protein 5.5 #L Albumin 2.8 L Globulin 2.70 Albumin/Globulin 1.03 Ratio Free Thyroxine 2.08 Index Thyroxine (T4) 5.3 L Triiodothyronine 39.2 (T3) Uptake Home Meds Reported Medications Levetiracetam* (Levetiracetam*) 500 Mg Tablet, 500 MG PO TID, TAB 11/11/17 Benazepril Hcl* (Benazepril Hcl*) 10 Mg Tablet, 10 MG PO DAILY, #30 TAB 11/11/17 Aspirin* (Aspirin* EC) 81 Mg Tablet.dr, 81 MG PO DAILY, TAB 11/11/17 Medications Current Medications Docusate Sodium (Colace) 100 mg Q12H PRN PO CONSTIPATION; Start 11/21/18 at 05:00 Bisacodyl (Dulcolax) 5 mg DAILY PRN PO CONSTIPATION; Start 11/21/18 at 05:00 Midazolam HCl 50 ml @ 2 mls/hr PER PROTOCOL IV Last administered on 11/22/18at 07:40; Admin Dose 6 MLS/HR; Start 11/21/18 at 05:00 Heparin Sodium (Porcine) (Heparin (1000 Units/ml)) 3,300 unit PER PROTOCOL PRN IV aPTT<47 Last administered on 11/22/18at 02:47; Admin Dose 3,300 UNIT; Start 11/21/18 at 06:30 Heparin Sodium (Porcine) 250 ml @ 6.5 mls/hr PER PROTOCOL IV Last administered on 11/21/18at 17:16; Admin Dose 3 MLS/HR; Start 11/21/18 at 06:30 Lorazepam (Ativan) 1 mg Q4 PRN IV CONTROL WITHDRAWAL SYMPTOMS; Start 11/21/18 at 08:00 Propofol 100 ml @ 1.637 mls/ hr Q12H IV ; Start 11/21/18 at 08:30 Fentanyl 100 ml @ 2.5 mls/hr TITRATE IV Last administered on 11/22/18at 07:41; Admin Dose 8 MLS/HR; Start 11/21/18 at 09:00 Dopamine HCl/ Dextrose 250 ml @ 5.243 mls/ hr TITRATE IV Last administered on 11/22/18at 08:23; Admin Dose 52.425 MLS/HR; Start 11/21/18 at 09:30 Epinephrine 4 mg/ Dextrose 250 ml @ 3.75 mls/hr TITRATE IV Last administered on 11/22/18at 01:35; Admin Dose 33.75 MLS/HR; Start 11/21/18 at 10:30 Amiodarone HCl 900 mg/Dextrose 500 ml @ 0 mls/hr Q0M IV Last administered on 11/22/18 07:41; Admin Dose 16.66 MLS/HR; Start 11/21/18 at 11:00; Stop 11/22/18 at 10:59 Norepinephrine 32 mg/Dextrose 250 ml @ 0.47 mls/hr TITRATE IV Last administered on 11/21/18at 11:54; Admin Dose 9.38 MLS/HR; Start 11/21/18 at 11:00 Phenylephrine HCl 80 mg/Dextrose 250 ml @ 18.75 mls/ hr TITRATE IV Last administered on 11/22/18 09:40; Admin Dose 56.25 MLS/HR; Start 11/21/18 at 14:53 Dextrose/Sodium Chloride 1,000 ml @ 75 mls/hr [id number] IV Last administered on 11/22/18 09:40; Admin Dose 75 MLS/HR; Start 11/21/18 at 16:30 Levetiracetam 100 ml @ 400 mls/hr Q12 IVPB Last administered on 11/22/18at 09:14; Admin Dose 400 MLS/HR; Start 11/21/18 at 22:00 Ticagrelor (Brilinta) 90 mg BID PO ; Start 11/22/18 at 09:00 Potassium Chloride 50 ml @ 50 mls/hr K PROTOCOL PRN IVPB PENDING LAB VALUE Last administered on 11/22/18 09:19; Admin Dose 50 MLS/HR; Start 11/22/18 at 08:30 Pantoprazole 80 mg/Sodium Chloride 100 ml @ 10 mls/hr Q10H IV ; Start 11/22/18 at 09:00 Assessment/Plan Assessment/Plan (Daily) IMP: 1. Acute Coronary Syndrome--complicated by V.fib arrest and cardiogenic shock. 2. Shock--likely cardiogenic in origin; now potentially complicated by UGIB 3. s/p V.fib Arrest 4. Vent Dependence--2/2 #1 and a component of hypoxemia 2/2 aspiration vs. CHF 5. ISHAAN 6. Lactic Acidosis 7. Rhabdomyolysis 8. H/O CVA 9. H/O Seizure D/O RECS: 1. Vent support 2. Sedation with versed and fentanyl 3. Vasopressor and inotropic support to MAP > 65 mm Hg 4. Transition off neosynephrine gtt to levophed; maintain dopamine and epinephrine gtt 5. Amiodarone gtt 6. Follow lactic acid; liver tests and renal function 7. Await transfer to [facility] for Impella vs. [facility]. 8. ABG and CXR 40 min cc time Case d/w Cardiology/Hospitalist/JUAN DE SOUZA MD Nov 22, 2018 10:05
--- NOTE | 2018-11-22 10:18 | PDOCDIS ---
Discharge Instructions DIAGNOSIS Discharge Diagnosis 1. Acute upper GI bleed 2. Acute coronary syndrome s/p PEA and Vfib arrest 3. Cardiogenic shock 4. Acute hypoxic respiratory failure secondary to #1 5. Lactic acidosis 6. Vfib arrest 7. ISHAAN CONDITION [id number] Patient Condition: [id number] Critical FOLLOW UP/APPOINTMENTS Follow-up Plan 1. Continue all care as per Cardiology recommendations EARL HOPKINS MD Nov 22, 2018 10:17
--- NOTE | 2018-11-22 10:28 | DS ---
Date/Time of Note Date/Time of Note DATE: 11/22/18 TIME: 10:18 Discharge Summary Admission/Discharge Info Admit Date/Time Nov 21, 2018 at 03:57 Discharge Date/Time 11/22/18 Discharge Diagnosis 1. Acute upper GI bleed 2. Acute coronary syndrome s/p PEA and Vfib arrest 3. Cardiogenic shock 4. Acute hypoxic respiratory failure secondary to #1 5. Lactic acidosis 6. Vfib arrest 7. ISHAAN Patient Condition: Critical Consults Cardiology- Dr. Wiley CT Surgery- Dr. Avelar Nephrology- Dr. Flores Pulmonology- Dr. King Procedures Echocardiogram Report Patient Name: PERI STONE : 1965 (53y 3m) Study Date: 11/21/2018 10:48:47 AM Gender: M Tech: Castillo Carter RDCS Location: [place] [id number] Ref.Physician: LILIAN SANDERSON Height(Cm): BSA: Weight(Kg): Quality: Good Account #: Procedures: Echocardiographic Report: Transthoracic echocardiogram with complete 2D, M-Mode, and doppler examination. Indications: NSTEMI. Measurements: 2D/M Mode Doppler Measurement Value Normal Range Measurement Value Normal Range LVIDd 2D 4.2 [ 4.2 - 5.8 ] cm AV Peak Vijay 0.7 [ 100.0 - 170.0 ] cm/sec LVIDs 2D 3.3 [ 2.5 - 4.0 ] cm AV Peak PG 2.0 [ 2.0 - 9.0 ] mmHg LVPWd 2D 1.1 [ 0.6 - 1.0 ] cm LVOT Peak Vijay 0.6 [ 70.0 - 110.0 ] cm/sec IVSd 2D 1.1 [ 0.6 - 1.0 ] cm LVOT Peak PG 1.0 [ 2.0 - 6.0 ] mmHg AoR Diam 2D 2.9 [ 2.6 - 3.4 ] cm MV E Peak Vijay 0.9 [ 60.0 - 130.0 ] cm/sec EDV 2D 77.3 [ 62.0 - 150.0 ] ml MV A Peak Vijay 0.2 [ 100.0 - 120.0 ] cm/sec ESV 2D 45.1 [ 21.0 - 61.0 ] ml MV E/A 3.9 [ 0.8 - 1.5 ] ratio EF 2D 41.7 [ 52.0 - 72.0 ] percent MV PHT 50.0 [ 20.0 - 100.0 ] msec LA Dimen 2D 3.2 [ 3.0 - 4.0 ] cm MV Decel Time 169 [ 104 - 258 ] msec MV Decel [place] 5 Lat E` Vijay 0.1 [ 10.0 - 15.0 ] cm/sec Lateral E/E` 11.9 [ 1.0 - 2.0 ] ratio MV E/A 3.9 [ 0.8 - 1.5 ] ratio MVA PHT 4.4 [ 2.0 - 4.0 ] cm2 TR Peak Vijay 2.2 [ 100.0 - 280.0 ] cm/sec TR Peak PG 20.0 mmHg Findings: Left Ventricle: Normal left ventricular systolic function. Normal left ventricular cavity size. Normal left ventricular wall thickness. Ejection fraction is visually estimated at 35-40 %. Right Ventricle: Normal right ventricular size. Normal right ventricular systolic function. Mild right ventricular hypokinesis. Left Atrium: The left atrium is normal in size. Right Atrium: The right atrium is normal in size. Atrial Septum: Normal atrial septum. Ventricular septum: Normal/intact ventricular septum. Mitral Valve: Normal appearance of the mitral valve. Mild mitral valve regurgitation. Aortic Valve: Normal appearance of the aortic valve. No aortic regurgitation. Tricuspid Valve: Normal appearance of the tricuspid valve. Estimated peak PA systolic pressure 20 mmHg. There is mild tricuspid regurgitation. Pulmonic Valve: Normal pulmonic valve appearance. No evidence of pulmonic regurgitation. Pericardium: Normal pericardium with no significant pericardial effusion. Aorta: Normal aortic root. IVC: Normal size and normal respiratory collapse consistent with normal right atrial pressure. Conclusions: Normal left ventricular systolic function. Normal left ventricular cavity size. Normal left ventricular wall thickness. Ejection fraction is visually estimated at 35-40 %. Normal appearance of the mitral valve. Mild mitral valve regurgitation. Normal appearance of the aortic valve. No aortic regurgitation. Normal appearance of the tricuspid valve. Estimated peak PA systolic pressure 20 mmHg. There is mild tricuspid regurgitation. Normal aortic root. Electronically Signed By: Andrew Wiley 2018-11-22 09:13:35 PDT DATE OF PROCEDURE: 11/21/2018 PROCEDURES PERFORMED: 1. Selective right and left coronary angiography. 2. Left heart catheterization. 3. Acute myocardial infarction intervention of left circumflex and proximal left anterior descending. 4. Intraaortic balloon pump placement. 5. Temporary pacemaker wire placement. 6. Central line triple lumen catheter placement. PROCEDURE: XR Chest. CLINICAL INDICATION: Respiratory distress, ET tube placement TECHNIQUE: Single frontal view of the chest was obtained COMPARISON: 11/21/2018 FINDINGS: There has been interval placement of an endotracheal tube. The tip is 2.1 cm above the danielle. The cardiac silhouette is unremarkable. The lungs are clear. There is no pleural effusion or pneumothorax. The bones and soft tissue show no acute change. IMPRESSION: Interval intubation. Otherwise, no definite abnormalities are identified. RPTAT:AAJJ Physician Carolyn Date Time Electronically viewed and signed by [place] Physician on 11/21/2018 11:10 . PROCEDURE: CT Abdomen and pelvis without contrast. CLINICAL INDICATION: Abdominal pain TECHNIQUE: CT scan of the abdomen and pelvis without contrast was performed on a multidetector high-resolution CT scan. . Coronal and sagittal reformatted images were obtained from the axial source images. Standard CT scan of the abdomen pelvis without contrast protocols were performed. The total exam CTDI equals 6.78 mGy and the total exam DLP equals 382.76 mGy-cm. One or more of the following dose reduction techniques were used: - Automated exposure control. - Adjustment of the mA and/or kV according to patient size. Use of iterative reconstruction technique. Dicom images are available COMPARISON: None. FINDINGS: The kidneys are normal in size without calcified calculi or hydronephrosis bilaterally. There is a 2.8 cm inhomogeneous low density rounded mass involving the inferior right kidney with Hounsfield units not consistent with a simple cyst. Finding may represent a hemorrhagic cyst. Neoplasm cannot be excluded. Follow-up CT or MRI of the kidneys for renal mass protocols is suggested. No evidence ureteral calcified calculi or dilatation. Distended urinary bladder otherwise unremarkable. Prostate unremarkable. Stomach, small bowel, large bowel and appendix are unremarkable. No evidence of intra-abdominal free air, free fluid, abscesses or lymphadenopathy. Liver spleen pancreas adrenal glands and gallbladder are unremarkable. No evidence biliary ductal dilation. Bilateral lower lung cylindrical bronchiectasis. Bilateral mild chronic basilar interstitial lung disease worse at the right base. Coronary artery disease. Atherosclerotic vascular disease aorta and iliac arteries without aneurysm. Abdominal pelvic wall unremarkable. Degenerative changes of the lower thoracic and lumbar spine without acute osseous findings or osteoblastic/osteolytic lesions. IMPRESSION: 1. In the inferior right kidney is a 2 point a centimeter inhomogeneous rounded low density lesion that may represent a hemorrhagic cyst. Neoplasm cannot be excluded and follow-up is recommended. 2. No calcified urinary calculi obstructive uropathy bilaterally. 3. No evidence of gastrointestinal disease. RPTAT:AAJJ Physician Sanam Date Time Electronically viewed and signed by Physician Sanam on 11/21/2018 03:15 PROCEDURE: CT Abdomen and pelvis without contrast. CLINICAL INDICATION: Abdominal pain TECHNIQUE: CT scan of the abdomen and pelvis without contrast was performed on a multidetector high-resolution CT scan. . Coronal and sagittal reformatted images were obtained from the axial source images. Standard CT scan of the abdomen pelvis without contrast protocols were performed. The total exam CTDI equals 6.78 mGy and the total exam DLP equals 382.76 mGy-cm. One or more of the following dose reduction techniques were used: - Automated exposure control. - Adjustment of the mA and/or kV according to patient size. Use of iterative reconstruction technique. Dicom images are available COMPARISON: None. FINDINGS: The kidneys are normal in size without calcified calculi or hydronephrosis bilaterally. There is a 2.8 cm inhomogeneous low density rounded mass involving the inferior right kidney with Hounsfield units not consistent with a simple cyst. Finding may represent a hemorrhagic cyst. Neoplasm cannot be excluded. Follow-up CT or MRI of the kidneys for renal mass protocols is suggested. No evidence ureteral calcified calculi or dilatation. Distended urinary bladder otherwise unremarkable. Prostate unremarkable. Stomach, small bowel, large bowel and appendix are unremarkable. No evidence of intra-abdominal free air, free fluid, abscesses or lymphadenopathy. Liver spleen pancreas adrenal glands and gallbladder are unremarkable. No evidence biliary ductal dilation. Bilateral lower lung cylindrical bronchiectasis. Bilateral mild chronic basilar interstitial lung disease worse at the right base. Coronary artery disease. Atherosclerotic vascular disease aorta and iliac arteries without aneurysm. Abdominal pelvic wall unremarkable. Degenerative changes of the lower thoracic and lumbar spine without acute osseous findings or osteoblastic/osteolytic lesions. IMPRESSION: 1. In the inferior right kidney is a 2 point a centimeter inhomogeneous rounded low density lesion that may represent a hemorrhagic cyst. Neoplasm cannot be excluded and follow-up is recommended. 2. No calcified urinary calculi obstructive uropathy bilaterally. 3. No evidence of gastrointestinal disease. RPTAT:AAJJ Physician Sanam Date Time Electronically viewed and signed by Physician Sanam on 11/21/2018 03:15 Hx of Present Illness Chief complaint: Abdominal pain Patient was seen and examined prior to going to the [facility]. This is a 53-year-old gentleman who presents to the emergency room with epigastric abdominal pain. The patient arrives via EMS. Initial call from the field was possible ST elevation myocardial infarction. Upon arrival the patient describes epigastric abdominal pain that started earlier in the afternoon. He describes mild nausea. He denies any chest pain or pressure but does describe a history of coronary disease and stents. Patient did appear to be in acute distress and he was noted to be with low blood pressures as well as heart rates in the 50s. He did have a CT scan of the chest that was performed that did not show any acute abnormalities. EKG was reviewed with the valve tester on-call given the patient's hemodynamic instability high risk non- STEMI as well as his symptoms and given the fact that his initial troponin was elevated at 1.3 patient was taken to the [facility] emergently for PCI. During this time the patient's did arrive at the emergency department who did report to me that the patient was working in the backyard earlier in the day and when he came inside he was noted to be sweating and he reported to the that he had nausea and abdominal pain. As his symptoms do not resolve she called 911. Allergies: NKDA Medications: statin Hospital Course Patient was admitted and emergently taken to the [facility] for PCI. Patient u nderwent stenting to mid LCx, prox LAD, and prox LCx. During PCI patient went into Vfib arrest 3 times with shock and ROSC. Patient was responding following cath and hypothermia protocol was not initiated. Patient was transferred to ICU for close monitoring with balloon pump in place and was started on pressor support for blood pressure control. Patients was found in PEA and noted with torsades on tele monitor. Patient underwent ACLS with ROSC and was continued on sedation and pressor support. Nephrology was consulted given worsening renal function in the setting of cardiogenic shock. He was continued on integrelin and heparin and developed a upper GI bleed with presence of coffee ground blood. NG tube was placed and started on PPI drip. Given critical status, Dr. Wiley initiated transfer to higher level of care given need for Impella vs ECMO vs LVAD. Home Meds Reported Medications Levetiracetam* (Levetiracetam*) 500 Mg Tablet, 500 MG PO TID, TAB 11/11/17 Benazepril Hcl* (Benazepril Hcl*) 10 Mg Tablet, 10 MG PO DAILY, #30 TAB 11/11/17 Aspirin* (Aspirin* EC) 81 Mg Tablet., 81 MG PO DAILY, TAB 11/11/17 Follow-up Plan 1. Continue all care as per Cardiology recommendations Primary Care Provider Abril Hernandez MD Time spent on discharge: > 30 minutes Pending Labs Laboratory Tests Test 11/21/18 11:36 11/21/18 12:19 11/21/18 13:25 11/21/18 15:20 Blood Gas Blood arterial Specimen Source Arterial Blood 11/21/2018 12:30 Date Drawn :43 PM Arterial Blood 7.241 (7.350-7. pH 450) (Temp corrected ) Arterial Blood 43.3 pCO2 mmhg (35-45) (Temp correct) Arterial Blood 107.7 pO2 mmHG (80-100.0) (Temp corrected ) Arterial Blood 18.2 HCO3 mmol/L (22.0-26 .0) Arterial Blood -8.8 Base Excess mmol/L (-3.0-3) Arterial Blood 96.8 Oxygen Saturati mmHG (95.0-98.0 on ) Alex Test N/A Arterial Blood A-Line Gas Puncture Site Arterial 0.3 % (0.0-3.0) Blood Carboxyhe moglobin Arterial Blood 0.3 % (0.0-1.5) Methemoglobin Blood Gas A-a 562.0 O2 mmHg (7.0-24.0) Differential Oxyhemoglobin 96.2 Percent % (93.0-99.0) Blood Gas 37.0 C Temperature Blood Gas 16.0 Respiration Rate Blood Gas 18 Actual Respiration Rat e Blood Gas VENT - AC Modality FiO2 100.0 % Blood Gas Tidal 500.0 mL Volume Blood Gas Low 5.0 cmH2O PEEP Setting Blood Gas H LEWMULLER RN Critical Value Read Back Blood Gas DT Notified Whom Blood Gas 11/21/2018 12:47 Notified Time :30 PM Lactic Acid 7.4 Level mmol/L (0.5-2. 0) Creatine 5199 Kinase IU/L (23-200) Creatine Kinase 6.6 Index Creatinine 342.00 Kinase MB ng/ml (0.0-2.4 (Mass) ) Troponin I 36.500 ng/ml (0.000-0 .120) Activated 41.6 Partial Thrombo Sec (23.0-35.0 plast Time ) Test 11/21/18 18:33 11/21/18 18:34 11/22/18 00:13 11/22/18 02:09 Lactic Acid 6.4 6.6 Level mmol/L (0.5-2.0 mmol/L (0.5-2. ) 0) Sodium Level 135 134 mmol/L (135-14 mmol/L (135-14 4) 4) Potassium 2.8 3.0 Level mmol/L (3.5-5. mmol/L (3.5-5. 1) 1) Chloride Level 97 101 mmol/L (97-110 mmol/L (97-110 ) ) Carbon Dioxide 20 17 Level mmol/L (21-31) mmol/L (21-31) Anion Gap 18 (5-13) 16 (5-13) Blood Urea 15 15 Nitrogen mg/dl (7-20) mg/dl (7-20) Creatinine 1.98 1.99 mg/dl (0.61-1. mg/dl (0.61-1. 24) 24) Est Glomerular 43 43 Filtrat mL/min (>60) mL/min (>60) Rate mL/min Glucose Level 334 166 mg/dl (70-220) mg/dl (70-220) Calcium Level 7.7 7.1 mg/dl (8.4-10. mg/dl (8.4-10. 2) 2) Creatine 6071 7013 Kinase IU/L (23-200) IU/L (23-200) Creatine Kinase 10.0 9.9 Index Creatinine 605.00 697.00 Kinase MB ng/ml (0.0-2.4 ng/ml (0.0-2.4 (Mass) ) ) Troponin I 65.200 66.600 ng/ml (0.000-0 ng/ml (0.000-0 .120) .120) Phosphorus 2.9 Level mg/dl (2.5-4.9 ) Magnesium 3.1 Level mg/dl (1.7-2.5 ) Activated > 180.0 Partial Thrombo Sec (23.0-35.0 plast Time ) Test 11/22/18 05:00 11/22/18 06:15 Blood Gas Blood arterial Specimen Source Arterial Blood 11/22/2018 4:00: Date Drawn 28 AM Arterial Blood 7.320 (7.350-7. pH 450) (Temp corrected ) Arterial Blood 36.4 pCO2 mmhg (35-45) (Temp correct) Arterial Blood 68.3 pO2 mmHG (80-100.0) (Temp corrected ) Arterial Blood 18.3 HCO3 mmol/L (22.0-26 .0) Arterial Blood -7.0 Base Excess mmol/L (-3.0-3) Arterial Blood 93.0 Oxygen Saturati mmHG (95.0-98.0 on ) Alex Test N/A Arterial Blood A-Line Gas Puncture Site Arterial 0.3 % (0.0-3.0) Blood Carboxyhe moglobin Arterial Blood 0.2 % (0.0-1.5) Methemoglobin Blood Gas A-a 463.9 O2 mmHg (7.0-24.0) Differential Oxyhemoglobin 92.5 Percent % (93.0-99.0) Blood Gas 37.0 C Temperature Blood Gas 28.0 Respiration Rate Blood Gas 28 Actual Respiration Rat e Blood Gas VENT - AC Modality FiO2 80.0 % Blood Gas Tidal 500.0 mL Volume Blood Gas Low 5.0 cmH2O PEEP Setting Blood Gas MA Notified Whom Blood Gas 11/22/2018 5:03: Notified Time 12 AM White Blood 10.2 Count 10^3/ul (4.8-1 0.8) Red Blood 4.48 Count 10^6/ul (4.70- 6.10) Hemoglobin 11.6 g/dl (14.0-18. 0) Hematocrit 36.1 % (42.0-52.0) Mean 80.6 Corpuscular fl (82.0-101.0 Volume ) Mean 25.9 Corpuscular pg (29.0-33.0) Hemoglobin Mean 32.1 Corpuscular g/dl (32.0-37. Hemoglobin Conc 0) ent Red Cell 14.8 Distribution % (11.5-14.5) Width Platelet Count 294 10^3/UL (140-4 15) Mean Platelet 11.0 Volume fl (7.4-10.4) Immature 0.500 Granulocytes % % (0.001-0.429 ) Neutrophils % 58.6 % (39.0-77.0) Lymphocytes % 34.4 % (15.0-51.0) Monocytes % 5.8 % (0.0-11.0) Eosinophils % 0.4 % (0.0-7.0) Basophils % 0.3 % (0.0-2.0) Nucleated Red 0.0 Blood Cells % /100WBC (0.0-0 .0) Immature 0.050 Granulocytes # 10^3/ul (0.0-0 .031) Neutrophils # 6.0 10^3/ul (1.6-7 .5) Lymphocytes # 3.5 10^3/ul (0.8-2 .9) Monocytes # 0.6 10^3/ul (0.3-0 .9) Eosinophils # 0.0 10^3/ul (0.0-0 .5) Basophils # 0.0 10^3/ul (0.0-0 .1) Nucleated Red 0.0 Blood Cells # 10^3/ul (0.0-0 .0) Activated 154.4 Partial Thrombo Sec (23.0-35.0 plast Time ) Sodium Level 133 mmol/L (135-14 4) Potassium 3.7 Level mmol/L (3.5-5. 1) Chloride Level 99 mmol/L (97-110 ) Carbon Dioxide 20 Level mmol/L (21-31) Anion Gap 14 (5-13) Blood Urea 17 Nitrogen mg/dl (7-20) Creatinine 1.96 mg/dl (0.61-1. 24) Est Glomerular 44 Filtrat mL/min (>60) Rate mL/min Glucose Level 106 mg/dl (70-220) Lactic Acid 2.0 Level mmol/L (0.5-2. 0) Calcium Level 7.0 mg/dl (8.4-10. 2) Phosphorus 4.3 Level mg/dl (2.5-4.9 ) Magnesium 2.4 Level mg/dl (1.7-2.5 ) Total 0.5 Bilirubin mg/dl (0.2-1.3 ) Direct 0.00 Bilirubin mg/dl (0.00-0. 20) Indirect 0.5 Bilirubin mg/dl (0-1.1) Aspartate Amino 715 Transf (AST/SGO IU/L (15-46) T) Alanine 130 Aminotransferas IU/L (13-69) e (ALT/SGPT) Alkaline 83 Phosphatase IU/L (42-121) Creatine 6664 Kinase IU/L (23-200) Creatine Kinase 12.0 Index Creatinine > 800.00 Kinase MB ng/ml (0.0-2.4 (Mass) ) Troponin I 109.000 ng/ml (0.000-0 .120) Total Protein 5.5 g/dl (6.1-8.1) Albumin 2.8 g/dl (3.3-4.9) Globulin 2.70 g/dl (1.3-3.2) Albumin/Globuli 1.03 n Ratio Free Thyroxine 2.08 Index ug/ml (0.65-3. 89) Thyroxine (T4) 5.3 ug/dl (5.5-11. 0) Triiodothyronin 39.2 e (T3) Uptake % (23.5-40.5) EARL HOPKINS MD Nov 22, 2018 10:28
[2018-11-22] MEDS: CANGRELOR TETRASODIUM/ NS 250 50 MG IVPB SCH ×5 (10:30→20:24)
[2018-11-22] MEDS ORDERED: DEXTROSE 5% 1,000 ML IV SCH (10:30)
--- NOTE | 2018-11-22 11:08 | PN ---
Date/Time of Note Date/Time of Note DATE: 11/22/18 TIME: 11:07 Assessment/Plan Lines/Catheters IV Catheter Type (from Nrsg): A LINE/BALLOON Trivedi in Place (from Nrsg): Yes Assessment/Plan Assessment/Plan Coronary artery disease status post PCI with drug-eluting stent in the LAD Status post cardiogenic shock with intra-aortic balloon pump placement Patient is very critical at the present time multiple pressors He did wake up this morning Patient is currently on multiple anticoagulation is as well Patient is not a candidate to undergo surgery at the present time at the conclusion of the cardiac catheterizations the vessels were open with RUBY III flow We will continue medical management with intra-aortic balloon pump and pressors Possible TX to [facility] Discussed with cardiology service Discussed with the nursing staff and the referring physicians Subjective 24 Hr Interval Summary Constitutional: improved Pain Control: mild Exam/Review of Systems Vital Signs Vitals Vital Signs Date Temp Pulse Resp B/P (MAP) Pulse Ox O2 O2 Flow FiO2 Time Delivery Rate 11/22/18 87 28 91/61 (71) 92 10:30 11/22/18 Mechanical 10:00 Ventilator 11/22/18 90 10:00 11/22/18 98.4 08:00 11/21/18 3.0 03:13 Intake and Output 11/21/18 11/21/18 11/22/18 1414:59 22:59 06:59 IntakeIntake Total 522.025 ml 1524.867 ml 1789.783 ml OutputOutput Total 1150 ml 250 ml BalanceBalance 522.025 ml 374.867 ml 1539.783 ml Exam Eyes: nl conjunctiva, EOMI, nl lids, nl sclera ENMT: nl external ears & nose, nl lips & teeth, nl nasal mucosa & septum, mucosa pink and moist Neck: supple, non-tender Respiratory: clear to auscultation, normal air movement Cardiovascular: regular rate and rhythm, nl pulses Gastrointestinal: soft, nl liver, spleen, non-tender Musculoskeletal: nl extremities to inspection, nl gait and stance Results Result Diagram: 11/22/1815 11/22/18 0615 ALLISON CAMP MD Nov 22, 2018 11:08
[2018-11-22] MEDS ORDERED: SODIUM BICARBONATE (IV ADD) 150 MEQ in DEXTROSE 5% 1,000 ML IV SCH (12:30)
--- NOTE | 2018-11-22 14:08 | CONS ---
Assessment/Plan Assessment/Plan Assessment/Plan (Daily) 1. Hypomagnesemia- resolved 2. Acute kidney injury due to acute prerenal azotemia 3. acute hypoxemic resp failure due to Cardiogenic shock 4.. acute cardiogenic shock with NSTEMI s/p PCI with stent placement, IABP placement, temporary pacemaker placement 5. V.Fibrillation Arrest 6. h/O HTN 7. HO CVA 8. H/o Seizure disorder 9. Hypocalcemia Plan: pt remains in ICU, on multiple pressors S/P CT surgery consult, currently not a surgical candidate urine output dropping down, keep MAP more than 65 mm Hg Cardiology, CT surgery, Pulmonary has been following BMP stat to follow up on electrolytes and Cr, Critically ill with multiple pressors for BP Support, poor prognosis will continue to follow up Patient seen in collaboration with Dr Blade Flores Consultation Date/Type/Reason Admit Date/Time Nov 21, 2018 at 03:57 Initial Consult Date 11/21/18 Type of Consult nephrology Requesting Provider: KELVIN GROSS MD Date/Time of Note DATE: 11/22/18 TIME: 13:55 24 HR Interval Summary Free Text/Dictation -remains intubated; in ICU - on multi pressors - plan to transfer patient to high level of care dw staff Subjective hx not possible: pt non-verbal, pt critical status Constitutional: requiring IVF, requiring O2 Exam/Review of Systems Exam Vitals Vital Signs Date Temp Pulse Resp B/P (MAP) Pulse Ox O2 O2 Flow FiO2 Time Delivery Rate 11/22/18 84 28 100/69 91 12:45 (79) 11/22/18 98.3 Mechanical 12:00 Ventilator 11/22/18 100 11:30 11/21/18 3.0 03:13 Intake and Output 11/21/18 11/21/18 11/22/18 1515:00 23:00 07:00 IntakeIntake Total 657.750 ml 1714.500 ml 1690.010 ml OutputOutput Total 1200 ml 200 ml BalanceBalance 657.750 ml 514.500 ml 1490.010 ml Constitutional: non-verbal, frail Eyes: nl lids Respiratory: diminished breath sounds Cardiovascular: nl pulses, other (s1s2) Gastrointestinal: soft Musculoskeletal: nl extremities to inspection, muscle weakness Extremities: normal pulses Neurological: unresponsive Results Result Diagram: 11/22/18 1325 11/22/18 0615 Results 24hrs Laboratory Tests Test 11/21/18 15:20 11/21/18 18:33 11/21/18 18:34 11/22/18 00:13 Activated 41.6 H Partial Thrombopl ast Time Lactic Acid Level 6.4 *H 6.6 *H Sodium Level 135 134 L Potassium Level 2.8 *L 3.0 L Chloride Level 97 101 Carbon Dioxide 20 L 17 L Level Anion Gap 18 #H 16 H Blood Urea 15 15 Nitrogen Creatinine 1.98 H 1.99 H Est Glomerular 43 L 43 L Filtrat Rate mL/min Glucose Level 334 #H 166 # Calcium Level 7.7 L 7.1 L Creatine Kinase 6071 H 7013 H Creatine Kinase 10.0 9.9 Index Creatinine Kinase 605.00 H 697.00 H MB (Mass) Troponin I 65.200 *H 66.600 *H Phosphorus Level 2.9 Magnesium Level 3.1 H Test 11/22/18 02:09 11/22/18 05:00 11/22/18 06:15 11/22/18 13:25 Activated > 180.0 *H 154.4 *H Partial Thrombopl ast Time Blood Gas Blood arterial Specimen Source Arterial Blood 11/22/2018 4:00:2 Date Drawn 8 AM Arterial Blood pH 7.320 L (Temp corrected) Arterial Blood 36.4 pCO2 (Temp correct) Arterial Blood 68.3 L pO2 (Temp corrected) Arterial Blood 18.3 L HCO3 Arterial Blood -7.0 L Base Excess Arterial Blood 93.0 L Oxygen Saturation Alex Test N/A Arterial Blood A-Line Gas Puncture Site Arterial 0.3 Blood Carboxyhemo globin Arterial Blood 0.2 Methemoglobin Blood Gas A-a O2 463.9 H Differential Oxyhemoglobin 92.5 L Percent Blood Gas 37.0 Temperature Blood Gas 28.0 Respiration Rate Blood Gas Actual 28 Respiration Rate Blood Gas VENT - AC Modality FiO2 80.0 Blood Gas Tidal 500.0 Volume Blood Gas Low 5.0 PEEP Setting Blood Gas MA Notified Whom Blood Gas 11/22/2018 5:03:1 Notified Time 2 AM White Blood Count 10.2 # 10.7 Red Blood Count 4.48 L 4.42 L Hemoglobin 11.6 L 11.5 L Hematocrit 36.1 L 35.7 L Mean Corpuscular 80.6 L 80.8 L Volume Mean Corpuscular 25.9 L 26.0 L Hemoglobin Mean Corpuscular 32.1 32.2 Hemoglobin Concen t Red Cell 14.8 H 14.6 H Distribution Width Platelet Count 294 274 Mean Platelet 11.0 H 11.3 H Volume Immature 0.500 H 0.600 H Granulocytes % Neutrophils % 58.6 68.6 Lymphocytes % 34.4 22.9 Monocytes % 5.8 7.3 Eosinophils % 0.4 0.2 Basophils % 0.3 0.4 Nucleated Red 0.0 0.0 Blood Cells % Immature 0.050 H 0.060 H Granulocytes # Neutrophils # 6.0 7.4 Lymphocytes # 3.5 H 2.5 Monocytes # 0.6 0.8 Eosinophils # 0.0 0.0 Basophils # 0.0 0.0 Nucleated Red 0.0 0.0 Blood Cells # Sodium Level 133 L Potassium Level 3.7 Chloride Level 99 Carbon Dioxide 20 L Level Anion Gap 14 H Blood Urea 17 Nitrogen Creatinine 1.96 H Est Glomerular 44 L Filtrat Rate mL/min Glucose Level 106 Lactic Acid Level 2.0 Calcium Level 7.0 L Phosphorus Level 4.3 Magnesium Level 2.4 Total Bilirubin 0.5 Direct Bilirubin 0.00 Indirect 0.5 Bilirubin Aspartate Amino 715 #H Transf (AST/SGOT) Alanine 130 H Aminotransferase (ALT/SGPT) Alkaline 83 Phosphatase Creatine Kinase 6664 H Creatine Kinase 12.0 Index Creatinine Kinase > 800.00 H MB (Mass) Troponin I 109.000 *H Total Protein 5.5 #L Albumin 2.8 L Globulin 2.70 Albumin/Globulin 1.03 Ratio Free Thyroxine 2.08 Index Thyroxine (T4) 5.3 L Triiodothyronine 39.2 (T3) Uptake Medications Medication Current Medications Docusate Sodium (Colace) 100 mg Q12H PRN PO CONSTIPATION; Start 11/21/18 at 05:00 Bisacodyl (Dulcolax) 5 mg DAILY PRN PO CONSTIPATION; Start 11/21/18 at 05:00 Midazolam HCl 50 ml @ 2 mls/hr PER PROTOCOL IV Last administered on 11/22/18at 07:40; Start 11/21/18 at 05:00 Heparin Sodium (Porcine) (Heparin (1000 Units/ml)) 3,300 unit PER PROTOCOL PRN IV aPTT<47 Last administered on 11/22/18 02:47; Start 11/21/18 at 06:30 Heparin Sodium (Porcine) 250 ml @ 6.5 mls/hr PER PROTOCOL IV Last administered on 11/21/18 17:16; Start 11/21/18 at 06:30 Lorazepam (Ativan) 1 mg Q4 PRN IV CONTROL WITHDRAWAL SYMPTOMS; Start 11/21/18 at 08:00 Propofol 100 ml @ 1.637 mls/ hr Q12H IV ; Start 11/21/18 at 08:30 Fentanyl 100 ml @ 2.5 mls/hr TITRATE IV Last administered on 11/22/18 07:41; Start 11/21/18 at 09:00 Dopamine HCl/ Dextrose 250 ml @ 5.243 mls/ hr TITRATE IV Last administered on 11/22/18 12:12; Start 11/21/18 at 09:30 Epinephrine 4 mg/ Dextrose 250 ml @ 3.75 mls/hr TITRATE IV Last administered on 11/22/18 01:35; Start 11/21/18 at 10:30 Norepinephrine 32 mg/Dextrose 250 ml @ 0.47 mls/hr TITRATE IV Last administered on 11/22/18 09:58; Start 11/21/18 at 11:00 Phenylephrine HCl 80 mg/Dextrose 250 ml @ 18.75 mls/ hr TITRATE IV Last administered on 11/22/18 09:40; Start 11/21/18 at 14:53 Levetiracetam 100 ml @ 400 mls/hr Q12 IVPB Last administered on 11/22/18 09:14; Start 11/21/18 at 22:00 Ticagrelor (Brilinta) 90 mg BID PO ; Start 11/22/18 at 09:00; Status Hold Potassium Chloride 50 ml @ 50 mls/hr K PROTOCOL PRN IVPB PENDING LAB VALUE Last administered on 11/22/18 09:57; Start 11/22/18 at 08:30 Pantoprazole 80 mg/Sodium Chloride 100 ml @ 10 mls/hr Q10H IV Last admi nistered on 11/22/18 09:57; Start 11/22/18 at 09:00 Cangrelor 250 ml @ 84 mls/hr Q3H IVPB Last administered on 3/24/19at 13:11; Start 11/22/18 at 11:00 Sodium Bicarbonate 150 meq/Dextrose 1,150 ml @ 50 mls/hr Q23H IV Last administered on 11/22/18at 13:11; Start 11/22/18 at 12:30 NILDA MCKNIGHT Nov 22, 2018 14:05
--- NOTE | 2018-11-22 16:27 | RADRPT ---
Vent Rate: 89 bpm RR Interval: 0 msec [place] Interval: 0 msec QRS Duration: 148 msec QT Interval: 446 msec QTC Interval: 542 msec P-R-T [place]: 0 - 8 - 71 degrees intermitent paced Undetermined rhythm Right bundle branch block Lateral infarct , age undetermined Inferior infarct , age undetermined Abnormal ECG Electronically Signed By: Uli Cifuentes
[2018-11-22] MEDS ORDERED: EPINEPHrine 0.1 MG/ML SYG ONE (20:56)
[2018-11-22] MEDS ORDERED: SOD CHLORIDE 0.45% IV SCH (21:30)
[2018-11-22] MEDS ORDERED: SODIUM BICARBONATE IV SCH (21:30)
== END 2018-11-22 22:30 | disposition short-term general hospital (02) | DRG 270 ==
LOC: E/R 02:25 → ICU 03:57
PROVIDERS: ADMIT Family Medicine; ATTEND Family Medicine
PROC: B211YZZ Fluoroscopy of Multiple Coronary Arteries using Other Contrast (ICD-10-PCS; 2018-11-21)
PROC: 5A2204Z Restoration of Cardiac Rhythm, Single (ICD-10-PCS; 2018-11-21)
PROC: 5A1223Z Performance of Cardiac Pacing, Continuous (ICD-10-PCS; 2018-11-21)
PROC: 3E073PZ Introduction of Platelet Inhibitor into Coronary Artery, Percutaneous Approach (ICD-10-PCS; 2018-11-21)
PROC: 3E033XZ Introduction of Vasopressor into Peripheral Vein, Percutaneous Approach (ICD-10-PCS; 2018-11-21)
PROC: 0BH17EZ Insertion of Endotracheal Airway into Trachea, Via Natural or Artificial Opening (ICD-10-PCS; 2018-11-21)
PROC: 5A1945Z Respiratory Ventilation, 24-96 Consecutive Hours (ICD-10-PCS; 2018-11-21)
PROC: 027135Z Dilation of Coronary Artery, Two Arteries with Two Drug-eluting Intraluminal Devices, Percutaneous Approach (ICD-10-PCS; principal; 2018-11-21 04:00)
PROC: 5A02210 Assistance with Cardiac Output using Balloon Pump, Continuous (ICD-10-PCS; 2018-11-21 04:00)
PROC: 4A023N7 Measurement of Cardiac Sampling and Pressure, Left Heart, Percutaneous Approach (ICD-10-PCS; 2018-11-21 04:00)
DX: I21.4 Non-ST elevation (NSTEMI) myocardial infarction (principal); R57.0 Cardiogenic shock; I49.01 Ventricular fibrillation; J96.01 Acute respiratory failure with hypoxia; I97.790 Other intraoperative cardiac functional disturbances during cardiac surgery; N17.9 Acute kidney failure, unspecified; E87.2 Acidosis; K92.2 Gastrointestinal hemorrhage, unspecified; M62.82 Rhabdomyolysis; I21.A9 Other myocardial infarction type; I25.10 Atherosclerotic heart disease of native coronary artery without angina pectoris; I24.9 Acute ischemic heart disease, unspecified; I25.84 Coronary atherosclerosis due to calcified coronary lesion; I10 Essential (primary) hypertension; E78.5 Hyperlipidemia, unspecified; E83.42 Hypomagnesemia; E83.51 Hypocalcemia; F17.200 Nicotine dependence, unspecified, uncomplicated; G40.909 Epilepsy, unspecified, not intractable, without status epilepticus; N28.9 Disorder of kidney and ureter, unspecified; Y83.8 Other surgical procedures as the cause of abnormal reaction of the patient, or of later complication, without mention of misadventure at the time of the procedure; I25.2 Old myocardial infarction; Z86.73 Personal history of transient ischemic attack (TIA), and cerebral infarction without residual deficits; Z95.5 Presence of coronary angioplasty implant and graft
CPT/HCPCS: 31500; 36415; 36600; 71045; 74176; 80048; 80053; 80061; 80069; 82550; 82553; 82803; 83036; 83605; 83690; 83735; 84100; 84436; 84443; 84479; 84484; 85014; 85018; 85025; 85610; 85730; 86850; 86900; 86901; 87040; 87081; 87086; 92950; 93005; 93306; 93458; 94002; 94003; 94770; 96374; 96375; C1725; C1726; C1874; C1887; C1894; C9113; C9460; C9606; J0171; J0282; J1265; J1327; J1644; J1940; J1953; J2001; J2250; J2370; J2405; J3010; J3475; J3480; J7030; J7040; J7042; J7060; J7070; Q9967